=== PATIENT | male | born 1965 | race Caucasian/White ===

== ENCOUNTER 2022-05-26 22:15 | Emergency (ER) | payer OTHER, SELFPAY ==
[2022-05-26 23:01] VITALS: BP 162/105; PULSE 68; RESP 14; TEMP 36.8; O2SAT 96
[2022-05-27] MEDS: OxyCODONE/APAP 5-325 TABLET 3 TAB PO (00:20)
[2022-05-27] MEDS: BUPIVACAINE 0.25% 30 ML INJECTION (01:54)
--- NOTE | 2022-05-30 10:25 | ED_ITS ---
HPI - General Adult General Chief complaint: Unspecified Complaint, Adult Stated complaint: Hemorrhoids out of control Time Seen by Provider: 05/26/22 23:39 History of Present Illness HPI narrative: 56 yo man here with c/o anal bleeding. notes 2 maybe 3 days of hemorrhoids; never had prior. soaked underwear twice today with blood; admittedly would've changed more frequently if was able to. no fever. is having some abdominal cramping. feels bloated. no diarrhea. described formed soft stools. has tried treatment with prep-H and 1/2 tab residual vicodin twice. still with a good deal of pain. no lightheaded or short of breath. is anticipating a long [employer] race in a couple of weeks. Related Data Home Medications Medication Instructions Recorded Confirmed No Known Home Medications 05/26/22 05/30/22 Previous Rx's Medication Instructions Recorded lidocaine 4 % topical gel 1 applic topical BID-QID PRN pain 05/27/22 #30 grams Allergies Allergy/AdvReac Type Severity Reaction Status Date / Time No Known Drug Allergies Allergy Verified 05/30/22 14:06 Review of Systems Status of ROS: Reports: 6 or more systems reviewed and unremarkable except as noted in History and below PFSH PFSH Medical History Hx SBO Meckel diverticulum No significant past medical history Surgical History H/O knee surgery History of adrenal surgery History of renal stent S/P appendectomy S/P hernia repair Social History Narrative: 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 Smoking Status: Never smoker Do you use any of these nicotine containing products: None Second hand tobacco smoke exposure: No How often do you have a drink containing alcohol: 2-3 times a week How many standard drinks containing alcohol do you have on a typical day: 3 or 4 How often do you have six or more drinks on one occasion: Never AUDIT-C Alcohol total score: 4 Non-prescribed substance use: denies use Exam Narrative: Exam Narrative: Well nourished, well built. pleasant. nad though winces at times in transition. breathing easily. cardiovascular with regular heart rate. abdomen soft and nt. perineal/anal exam with large thrombosed hemorrhoids. 4 large piles; largest centrally. hard to tell initially though with further anesthetised exam all appear to be coming from the 12-6 o'clock area. All quite tender. largest 3+ cm in maximal dimension centrally. another more eroded and possible some source of bleeding is most central. no sig bleeding at this time. internal exam not possible d/t discomfort and amount of tissue complicating, though demonstrating remarkable pain tolerance. Const: Documenting provider has reviewed patient's vital signs: yes Course Course Hospital Course: discussed etiology and options for care including excising clot as I believe them to still be fresh enough to benefit and will hasten resolution and likely with smaller residual skin vs no intervention and treating symptoms. Mr. Fuentes gives informed consent to precede with excision of clot. Vital Signs Vital signs: Initial Vital Signs Temperature 98.2 F 05/26/22 23:01 Temperature Source Temporal Artery Scan 05/26/22 23:01 Pulse Rate 68 05/26/22 23:01 Pulse Rhythm 05/26/22 23:01 Respiratory Rate 14 05/26/22 23:01 Blood Pressure 162/105 H 05/26/22 23:01 Blood Pressure Mean 124 05/26/22 23:01 Pulse Oximetry 96 05/26/22 23:01 Oxygen Delivery Method 05/26/22 23:01 Vital Signs Temperature 98.2 F 05/26/22 23:01 Pulse Rate 68 05/26/22 23:01 Respiratory Rate 14 05/26/22 23:01 Blood Pressure 162/105 H 05/26/22 23:01 Pulse Oximetry 96 05/26/22 23:01 Oxygen Delivery Method 05/26/22 23:01 Temperature 98.2 F 05/26/22 23:01 Pulse Rate 68 05/26/22 23:01 Respiratory Rate 14 05/26/22 23:01 Blood Pressure 162/105 H 05/26/22 23:01 Pulse Oximetry 96 05/26/22 23:01 Oxygen Delivery Method 05/26/22 23:01 Medical Decision Making MDM Narrative Medical decision making narrative: given percocet initially then fan injection around anal tissue with bupivicaine. overall relatively excellent anethesia achieved and certainly aided by high pain tolerance. redosed during procedure and topical lidocaine placed prior to departure. excised with 15 blade and explored with curved mosquito. numerous clots removed and marked reduction extra-anal volume; 50% replaced (at least temporarily). 3 incisions necessary over largest hemorrhoid. minimal blood loss. oozing very lightly when gauze placed. no cautery or sutures necessary. Discharge Plan Discharge Clinical Impression: Thrombosed external hemorrhoids Patient Disposition: Home, Self-Care Condition: Stable Additional Instructions: Stay well-hydrated. Began supplementing with MiraLax or Benefiber or Citrucel --if talking MiraLax I'd probably start off with 3 cap fulls in the morning each diluted in 6-8 oz of liquid. Whatever you choose adjust to stool consistency being rather soft. Might probably need to use this for a couple of weeks. Might also soften stool with docusate sodium. Witch Kinsey containing pads or liquid placed on cotton balls to dab on affected area, can help with anesthesia. Might keep area moist with white petroleum jelly. Sitz baths 1-2 times daily over this next week- Warm water containing Epsom salt or could also soak in warm soapy water. Consider installing a bidet seat. Can take up to 800 mg of ibuprofen per dose. Alternative might be up to 500 mg naproxen 2 times daily. The either can be combined with acetaminophen up to 1000 mg per dose. Remember that each tablet of Percocet contains 325 mg of acetaminophen. With opiates can come constipation. On the days that you are taking an opiate, consider also taking senna-containing product once or twice a day. The lidocaine jelly prescribed has twice the % of what you received here in the ER. Consider making a tentative appointment with General surgery (or colorectal surgery) for around a week from now if you are having trouble. Otherwise see them on return from your trip. I think you would benefit from a longer-term plan regarding what I saw here today. Be seen otherwise for uncontrolled pain, bleeding such that you're soaking 1 medium weight menstrual pad equivalent an hour for 2 consecutive hours, fever. Prescriptions: New lidocaine 4 % gel 1 applic topical BID-QID PRN (Reason: pain) Qty: 30 1RF Rx Instructions: May substitute with 2% if 4 or 5% not available. No Action No Known Home Medications Follow Up/Referrals: Lawson Key MD [Primary Care Provider] - Stand Alone Forms: Of[employer] Info Instructions
== END 2022-05-27 04:05 | disposition home or self-care (01) ==
PROVIDERS: Emergency Provider Family Medicine; PCP Family Medicine
DX: K64.5 Perianal venous thrombosis (principal)
CPT/HCPCS: 46083; 99283; A9270; J3490

== ENCOUNTER 2023-03-29 10:17 | Outpatient (CLI) | payer OTHER, SELFPAY | END 2023-03-29 10:18 | disposition home or self-care (01) | PROVIDERS: PCP Family Medicine; Visit Provider Family Medicine | DX: Z00.00 Encounter for general adult medical examination without abnormal findings (principal); R53.83 Other fatigue; E55.9 Vitamin D deficiency, unspecified; I10 Essential (primary) hypertension; E78.00 Pure hypercholesterolemia, unspecified | CPT/HCPCS: 80053; 80061; 84153; 84270; 84402; 84403; 84443 ==

== ENCOUNTER 2023-09-02 12:05 | Emergency (ER) | payer OTHER, SELFPAY ==
[2023-09-02 12:14] VITALS: BP 148/97; PULSE 69; RESP 16; TEMP 36.1; O2SAT 97; BMI 26.5
[2023-09-02 13:21] LABS: RBC Urine 0-2 (0-2); Squamous Epithelial Cell Urine Few (None-Few); WBC Urine 0-2 (0-5)
--- NOTE | 2023-09-02 15:28 | CRLHL7_ITS ---
For Patients: As a result of the Century Cures Act, medical imaging exams and procedure reports are released immediately into your electronic medical record. You may view this report before your referring provider. If you have questions, please contact your health care provider. INDICATION: Bilateral flank pain with a history of stones COMPARISON: 03/01/2021 TECHNIQUE: CT of the abdomen and pelvis without intravenous contrast. Multiplanar axial, coronal, and sagittal reformats were reconstructed. Intravenous contrast: None. Oral contrast was not administered. FINDINGS: Lung bases: Mild bibasilar atelectasis Liver: Normal size and non-contrast attenuation. Gallbladder and biliary tree: Normal gallbladder. No biliary duct dilation. Pancreas: Normal. Spleen: Scattered granulomas. Normal size. Adrenal glands: Left adrenalectomy. Right adrenal gland appears normal. Kidneys and bladder: Normal size and position. No obvious cyst or mass. There are several nonobstructing intrarenal calculi. In the left kidney the largest is 9 mm in the lower pole. In the left kidney the largest is 7 mm and is in the upper pole. No urinary tract dilation. The urinary bladder is normal. GI: Few colonic diverticuli. No dilated segments. No abnormal bowel wall thickening. Small stool burden. The appendix is not discretely seen. Vessels: Normal caliber abdominal aorta with few calcified atherosclerotic plaques. Peritoneum: No free fluid. Lymph nodes: No adenopathy. Pelvis: No pelvic mass. Bones: No fractures. No focal bone lesions. Normal for age. IMPRESSION: Bilateral nonobstructing nephrolithiasis. Please note that all CT scans at this facility use dose modulation, iterative reconstruction, and/or weight-based dosing when appropriate to reduce radiation dose to as low as reasonably achievable. Dictated by Millicent Weber MD @ 09/02/2023 4:43:51 PM (Electronically Signed)
--- NOTE | 2023-09-02 15:31 | ED_ITS ---
HPI - General Adult General Chief complaint: Back Injury/Pain Stated complaint: Kidney pain Time Seen by Provider: 09/02/23 15:05 History of Present Illness HPI narrative: This 58-year-old male comes in reporting bilateral flank pain for the past almost couple weeks. He states that he had some gross hematuria when this pain initially presented. He does have a history of kidney stones. His pain was not severe so he has been waiting on this but comes in today stating that he no long er has hematuria but continues to have flank pain that ranges from 2 to 4 out of 10 in severity. He states that he is otherwise in good health. Related Data Previous Rx's Medication Instructions Recorded escitalopram oxalate 10 mg tablet 5 - 10 mg (0.5 - 1 x 10 mg) PO 03/29/23 (Lexapro) QDAY #90 tabs rosuvastatin 10 mg tablet 10 mg PO QDAY #90 tabs 03/29/23 ketorolac 10 mg tablet 10 mg PO Q8H 5 days #15 tabs 09/02/23 Allergies Allergy/AdvReac Type Severity Reaction Status Date / Time No Known Drug Allergies Allergy Verified 09/02/23 12:19 Review of Systems Status of ROS: Reports: 10 or more systems reviewed and unremarkable except as noted in History and below Narrative: Constitutional: No fevers, no weight gain or loss. Eyes: No discharge. No vision changes. HENT: No congestion, no sore throat, no ear pain. Cardiovascular: No chest pain, no palpitations. Respiratory: No shortness of breath, no wheezes, no cough. Gastrointestinal: No abdominal pain, no vomiting, no diarrhea. Bilateral flank pain. Genitourinary: No dysuria. Hematuria more than a week ago. Musculoskeletal: Normal range of motion. Skin: No rashes, no pruritis. Neurological: No dizziness, weakness, sensory change, speech change. Endo/Heme/Allergies: No bruising or bleeding. No polydipsia. Pysch: no suicidality, no anxiety, no insomnia. All other systems reviewed and are negative. [facility] Medical History (Updated 09/02/23 @ 17:22 by Bandar Mendiola MD) Hx SBO ?Z87.19 - Personal history of other diseases of the digestive system (ICD-10) Meckel diverticulum ?Q43.0 - Meckel's diverticulum (displaced) (hypertrophic) (ICD-10) No significant past medical history Surgical History (Updated 03/11/23 @ 08:39 by Jonah Lundy) History of colonoscopy ?Z98.890 - Other specified postprocedural states (ICD-10) H/O knee surgery ?Z98.890 - Other specified postprocedural states (ICD-10) History of renal stent S/P appendectomy ?Z90.49 - Acquired absence of other specified parts of digestive tract (ICD- 10) History of adrenal surgery ?Z98.890 - Other specified postprocedural states (ICD-10) S/P hernia repair ?Z98.890 - Other specified postprocedural states (ICD-10) ?Z87.19 - Personal history of other diseases of the digestive system (ICD-10) Family History (Updated 03/11/23 @ 08:40 by Jonah Lundy) Mother Cervical cancer Father Coronary artery disease High blood pressure Other Crohn's disease Leukemia Social History (Updated 03/11/23 @ 08:40 by oJnah Lundy) Narrative: 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 does not use illicit drugs nonsmoker social alcohol use Smoking Status: Never smoker Do you use any of these nicotine containing products: None Second hand tobacco smoke exposure: No How often do you have a drink containing alcohol: 2-3 times a week How many standard drinks containing alcohol do you have on a typical day: 3 or 4 How often do you have six or more drinks on one occasion: Never AUDIT-C Alcohol total score: 4 Non-prescribed substance use: denies use Little interest or pleasure in doing things: not at all Feeling down, depressed, or hopeless: not at all Exam Narrative: Exam Narrative: Constitutional: Well-developed, well-nourished, no acute distress. HEENT: Normocephalic, atraumatic. Neck: Normal range of motion. Nontender. Supple. Heart: Regular. No murmurs. Normal rate. Intact distal pulses. Lungs: Clear to auscultation. No chest discomfort. No wheezes, rhonchi, or rales. Abdomen: Normal bowel sounds. Nontender. No rebound tenderness. Tenderness when percussing over the flank region bilaterally. Genitalia: Deferred. Back: No midline tenderness. Normal range of motion. Extremities: Normal range of motion. No injury. Skin: Intact. No rash. Warm. No erythema or pallor. Neurologic: No altered sensation. No weakness. Alert and oriented. Psychiatric: No suicidality. No anxiety or depression. No insomnia. Nursing notes and vitals signs are reviewed. Const: Vital Signs, click to edit/add: Vital Signs - 24 hr 09/02/23 12:14 Temperature 96.9 F L Pulse Rate [Right Pulse Oximeter] 69 Respiratory Rate 16 Blood Pressure [Ri ght Upper Arm] 148/97 H Pulse Oximetry 97 Oxygen Delivery Me thod Room Air Course Vital Signs Vital signs: Initial Vital Signs Temperature 96.9 F L 09/02/23 12:14 Temperature Source Temporal Artery Scan 09/02/23 12:14 Pulse Rate 69 09/02/23 12:14 Respiratory Rate 16 09/02/23 12:14 Blood Pressure 148/97 H 09/02/23 12:14 Blood Pressure Mean 114 H 09/02/23 12:14 Blood Pressure Position Sitting 09/02/23 12:14 Pulse Oximetry 97 09/02/23 12:14 Oxygen Delivery Method Room Air 09/02/23 12:14 Vital Signs Temperature 96.9 F L 09/02/23 12:14 Pulse Rate 69 09/02/23 12:14 Respiratory Rate 16 09/02/23 12:14 Blood Pressure 148/97 H 09/02/23 12:14 Pulse Oximetry 97 09/02/23 12:14 Oxygen Delivery Method Room Air 09/02/23 12:14 Temperature 96.9 F L 09/02/23 12:14 Pulse Rate 69 09/02/23 12:14 Respiratory Rate 16 09/02/23 12:14 Blood Pressure 148/97 H 09/02/23 12:14 Pulse Oximetry 97 09/02/23 12:14 Oxygen Delivery Method Room Air 09/02/23 12:14 Medical Decision Making MDM Narrative Medical decision making narrative: This patient comes in reporting [id number] bilateral flank pain for the past couple weeks. He states that these symptoms began with some gross hematuria which has now resolved. He thought he might be passing a kidney stone as he has done so in the past. His pain has persisted mildly throughout this time but he has not had any recurrent hematuria. Urinalysis today shows no sign of hematuria or infection. CT imaging of the abdomen and pelvis shows some large stones in the kidneys that are nonobstructive. There are no other abnormalities. This patient has normal vital signs. He is okay to return home. A prescription for Toradol is provided. Lab Data Labs: Lab Results 09/02/23 Range/Units 12:20 Urine RBC 0-2 (0-2) Urine WBC 0-2 (0-5) Ur Squamous Epith Cells Few (None-Few) Urine Bacteria None (None) Imaging Data CT scan - abdomen: Radiologist's impression: Bilateral nonobstructing nephrolithiasis. Discharge Plan Discharge Clinical Impression: Flank pain Patient Disposition: Home, Self-Care Condition: Stable Additional Instructions: Take medication as needed and indicated. Follow up with MD or return if worsening. Prescriptions: New ketorolac 10 mg tablet 10 mg PO Q8H 5 Days Qty: 15 0RF No Action escitalopram oxalate [Lexapro] 10 mg tablet 5 - 10 mg PO QDAY Qty: 90 3RF rosuvastatin 10 mg tablet 10 mg PO QDAY Qty: 90 0RF Follow Up/Referrals: Lawson Key MD [Primary Care Provider] - Stand Alone Forms: [employer] Info Instructions
== END 2023-09-02 17:28 | disposition home or self-care (01) ==
PROVIDERS: Emergency Provider Emergency Medicine Emergency Medical Services; PCP Family Medicine
DX: R10.9 Unspecified abdominal pain (principal)
CPT/HCPCS: 74176; 81015; 99284

== ENCOUNTER 2023-09-09 17:31 | Outpatient (CLI) | payer OTHER, SELFPAY | END 2023-09-09 17:32 | disposition home or self-care (01) | LOC: NFLDREF 09-11 11:17 | PROVIDERS: PCP Family Medicine; Visit Provider Family Medicine | DX: E78.00 Pure hypercholesterolemia, unspecified (principal); Z79.899 Other long term (current) drug therapy; R31.9 Hematuria, unspecified; D61.818 Other pancytopenia; N20.0 Calculus of kidney; R05.9 Cough, unspecified | CPT/HCPCS: 84460 ==

== ENCOUNTER 2023-10-16 09:05 | Outpatient (CLI) | payer BC, SELFPAY | END 2023-10-16 09:06 | disposition home or self-care (01) | LOC: NFLDREF 10-21 06:16 | PROVIDERS: PCP Family Medicine; Referring Provider Family Medicine; Visit Provider Family Medicine | DX: E78.00 Pure hypercholesterolemia, unspecified (principal) | CPT/HCPCS: 80061 ==

== ENCOUNTER 2024-05-18 09:07 | Emergency (ER) | payer BC, SELFPAY ==
[2024-05-18] VITALS (14 sets, daily range): BP systolic 139–207; BP diastolic 42–114; PULSE 53–88; RESP 12–18; TEMP 35.9; O2SAT 93–98; BMI 27.3
--- NOTE | 2024-05-18 09:24 | CRLHL7_ITS ---
For Patients: As a result of the Century Cures Act, medical imaging exams and procedure reports are released immediately into your electronic medical record. You may view this report before your referring provider. If you have questions, please contact your health care provider. INDICATION: Clinical signs and symptoms of an acute stroke. Dizziness and diplopia COMPARISON: None TECHNIQUE: CT examination of the head was performed as axial sections without intravenous contrast. Images were obtained from the vertex of the skull through the skull base. Please note that all CT scans at this facility use dose modulation, iterative reconstruction, and/or weight-based dosing when appropriate to reduce radiation dose to as low as reasonably achievable. FINDINGS: The brain shows no sign of mass lesion, mass effect, hemorrhage, or edema. The ventricles and sulci are normal in appearance for the patient`s age. The visualized portions of the orbits are normal in appearance. The osseous structures are normal in their appearance with no sign of abnormality in the skull base or calvarium. I discussed the above findings with Dr. Keven Urbina at 9:45 a.m. on May 18, 2024 IMPRESSION: Normal unenhanced head CT. Please note that all CT scans at this facility use dose modulation, iterative reconstruction, and/or weight-based dosing when appropriate to reduce radiation dose to as low as reasonably achievable. Dictated by Rajesh East MD @ 05/18/2024 9:49:31 AM (Electronically Signed)
--- NOTE | 2024-05-18 09:24 | CRLHL7_ITS ---
For Patients: As a result of the Century Cures Act, medical imaging exams and procedure reports are released immediately into your electronic medical record. You may view this report before your referring provider. If you have questions, please contact your health care provider. INDICATION: Dizziness, diplopia. TECHNIQUE: CTA neck with contrast bolus tracking, 3D angiographic rendering using maximum intensity projection (MIP) and images permanently archived. FINDINGS: There is carotid atherosclerosis. There is no significant carotid artery stenosis or dissection. There is no significant vertebral artery stenosis or dissection. The soft tissues of the neck are within normal limits. The cervical spine is in normal alignment. Degenerative changes are noted in the cervical spine. IMPRESSION: No significant carotid or vertebral artery stenosis or dissection. Please note that all CT scans at this facility use dose modulation, iterative reconstruction, and/or weight-based dosing when appropriate to reduce radiation dose to as low as reasonably achievable. Dictated by Louis Correa MD @ 05/18/2024 9:57:02 AM (Electronically Signed)
--- NOTE | 2024-05-18 09:24 | CRLHL7_ITS ---
For Patients: As a result of the Century Cures Act, medical imaging exams and procedure reports are released immediately into your electronic medical record. You may view this report before your referring provider. If you have questions, please contact your health care provider. INDICATION: Dizziness, diplopia. TECHNIQUE: CTA head with contrast bolus tracking, 3D angiographic rendering using maximum intensity projection (MIP) and images permanently archived. FINDINGS: There is minor intracranial atherosclerotic disease with ectasia of the intracranial left vertebral artery. There is otherwise normal opacification of the intracranial vasculature. There is no large vessel occlusion or significant intracranial stenosis. No aneurysm is identified. IMPRESSION: No acute intracranial abnormality at CTA. Please note that all CT scans at this facility use dose modulation, iterative reconstruction, and/or weight-based dosing when appropriate to reduce radiation dose to as low as reasonably achievable. Dictated by Louis Correa MD @ 05/18/2024 9:53:44 AM (Electronically Signed)
--- NOTE | 2024-05-18 09:30 | ED_ITS ---
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 He presents to the ER today with his with concern for blurry vision, tingling in his left arm, unsteady gait. He was in his normal state of health when he got up to get ready for work this morning. He had already been up and around and was checking his emails when at about 645 he had fairly abrupt onset of blurry vision. He notes that addition seems to be worse in his left eye and better in his right eye. It also seems to be worse when he tries to look at things to left and better when he looks to the right. Along with that he felt some tingling numbness in his left based left arm and some unsteadiness with his gait. No headache. No definite weakness. No right-sided symptoms. He is not anticoagulated. No recent head injury. No history of seizures. He does take a medicine for cholesterol. He is not on any chemotherapy. His kidney tumor was not a malignancy. Related Data Previous Rx's ?Medication ?Instructions ?Recorded escitalopram oxalate 10 mg tablet 5 - 10 mg (0.5 - 1 x 10 mg) PO 04/13/24 (Lexapro) QDAY #90 tabs rosuvastatin 10 mg tablet 10 mg PO QDAY #90 tabs 04/15/24 Allergies Allergy/AdvReac Type Severity Reaction Status Date / Time No Known Drug Allergies Allergy Verified 05/18/24 11:29 [facility] Medical History (Updated 05/18/24 @ 09:52 by Keven Urbina MD) Calcium nephrolithiasis ?N20.0 - Calculus of kidney (ICD-10) Hx SBO ?Z87.19 - Personal history of other diseases of the digestive system (ICD-10) Meckel diverticulum ?Q43.0 - Meckel's diverticulum (displaced) (hypertrophic) (ICD-10) No significant past medical history Surgical History (Updated 03/11/23 @ 08:39 by Jonah Lundy) History of colonoscopy ?Z98.890 - Other specified postprocedural states (ICD-10) H/O knee surgery ?Z98.890 - Other specified postprocedural states (ICD-10) History of renal stent S/P appendectomy ?Z90.49 - Acquired absence of other specified parts of digestive tract (ICD- 10) History of adrenal surgery ?Z98.890 - Other specified postprocedural states (ICD-10) S/P hernia repair ?Z98.890 - Other specified postprocedural states (ICD-10) ?Z87.19 - Personal history of other diseases of the digestive system (ICD-10) Family History (Updated 03/11/23 @ 08:40 by Jonah Lundy) Mother Cervical cancer Father Coronary artery disease High blood pressure Other Crohn's disease Leukemia Social History (Updated 03/11/23 @ 08:40 by Jonah Lundy) Narrative: 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 does not use illicit drugs nonsmoker social alcohol use Smoking Status: Never smoker Do you use any of these nicotine containing products: None Second hand tobacco smoke exposure: No How often do you have a drink containing alcohol: 2-3 times a week How many standard drinks containing alcohol do you have on a typical day: 3 or 4 How often do you have six or more drinks on one occasion: Never AUDIT-C Alcohol total score: 4 Non-prescribed substance use: denies use Little interest or pleasure in doing things: not at all Feeling down, depressed, or hopeless: not at all Exam Narrative: Exam Narrative: Primary Survey: A- patent. Speaking clearly. Phonation normal. No stridor. B- breathing easily. Lung sounds clear and equal. Oxygen saturation normal on room air C- no active bleeding. Blood pressure stable. Symmetric pulses and cap refill in 4 extremities. D- alert and oriented x3. GCS 15. Constitutional: Appears well-developed and well-nourished. Alert. Conversant. Non toxic. HENT: Head: Atraumatic. Nose: Nose normal. Mouth/Throat: Oral mucosa is clear and moist. no trismus. Pharynx normal. Tonsils symmetric. No tonsillar enlargement, erythema, or exudate. Eyes: Conjunctivae normal. EOM normal. Pupils equal, round, and reactive to light. No scleral icterus. Neck: Normal range of motion. Neck supple. No tracheal deviation present. Cardiovascular: Normal rate, regular rhythm. No gallop. No friction rub. No murmur heard. Symmetric radial artery pulses Pulmonary/Chest: Effort normal. No stridor. No respiratory distress. No wheezes. No rales. No rhonchi . Abdominal: Soft. No distension. No mass. No tenderness. No rebound. No guarding. Musculoskeletal: RUE: Normal range of motion. No tenderness. No deformity LUE: Normal range of motion. No tenderness. No deformity RLE: Normal range of motion. No edema. No tenderness. No deformity LLE: Normal range of motion. No edema. No tenderness. No deformity Neurological: Mental status normal. Attention normal. Alert and oriented x3. GCS 15. Memory normal. Speech fluent. Cognition normal. Cranial Nerves: No facial droop. Facial sensation is symmetric bilaterally and V1, V2, V3. 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 When looking forward into the right, gaze is conjugate. However his right eye will not track past the midline when moving his eyes toward the left. He seems to have some nystagmus of his left eye with leftward gaze. EOMI. Palate elevates symmetrically and tongue protrudes in the midline. Strength: 5/5 trapezius on the right and left 5/5 deltoid on the right and left 5/5 biceps on the right and left 5/5 triceps on the right and left 5/5 software tools engineer on the right and left 5/5 thumb opposition on the right and le ft 5/5 finger abduction on the right and le ft 5/5 hip flexors (L3) on the right and le ft 5/5 quadriceps (L4) on the right and lef t 5/5 tibialis anterior on the right and l eft 5/5 EHL (L5) on the right and left 5/5 gastrocnemius (S1) on the right and left 5/5 hamstring on the right and left Although he complains of subjective paresthesias in his left arm, Sensation intact to light touch in both upper extremities (C4-T1) Sensation intact to light touch in Both lower extremities (L4-S1). Finger to nose and coordination normal. Heel-suresh is normal bilaterally. Nurses report he was very ataxic when transferring to the bed. Gait not assessed at this time due to the time urgency to get him to CT scan NIHSS 9:20 AM initiall assessment- 2 (gaze palsy). Skin: Skin is warm and dry. No rash noted. No pallor. Normal capillary refill. Psychiatric: Normal mood. Normal affect. Const: Vital Signs, click to edit/add: Vital Signs - 24 hr 05/18/24 09:10 05/18/24 09:15 05/18/24 09:36 Temperature 96.6 F L Pulse Rate 82 Pulse Rate [Pulse Oximeter] 88 Respiratory Rate 16 14 Blood Pressure 176/102 H Blood Pressure [Le ft Upper Arm] 207/114 H Pulse Oximetry 98 98 97 Oxygen Delivery Me thod Room Air 05/18/24 09:47 05/18/24 10:02 05/18/24 10:17 Temperature Pulse Rate 74 70 67 Pulse Rate [Pulse Oximeter] Respiratory Rate 16 14 14 Blood Pressure 153/96 H 169/104 H 139/42 L Blood Pressure [Le ft Upper Arm] Pulse Oximetry 98 96 97 Oxygen Delivery Me thod 05/18/24 10:31 05/18/24 10:47 05/18/24 11:01 Temperature Pulse Rate 75 59 L 60 Pulse Rate [Pulse Oximeter] Respiratory Rate 12 14 14 Blood Pressure 159/101 H 163/97 H Blood Pressure [Le ft Upper Arm] Pulse Oximetry 96 97 94 Oxygen Delivery Me thod 05/18/24 11:16 05/18/24 11:31 05/18/24 11:47 Temperature Pulse Rate 54 L 60 53 L Pulse Rate [Pulse Oximeter] Respiratory Rate 16 18 16 Blood Pressure 157/99 H 175/107 H 156/97 H Blood Pressure [Le ft Upper Arm] Pulse Oximetry 95 95 94 Oxygen Delivery Me thod 05/18/24 12:01 05/18/24 12:17 Temperature Pulse Rate 54 L 66 Pulse Rate [Pulse Oximeter] Respiratory Rate 16 18 Blood Pressure 150/98 H 160/112 H Blood Pressure [Le ft Upper Arm] Pulse Oximetry 93 94 Oxygen Delivery Me thod Course Course ED Course: Patient arrived and was triaged to ER room 8 and a stroke team activation was initiated. I evaluated the patient. He had symptoms concerning for stroke including an apparent intranuclear ophthalmoplegia associated with left-sided paresthesias and ataxia at home. Concern is for brainstem stroke. Blood sugar was normal. Blood pressure was markedly elevated at about 210/115. Initial an ache stroke scale score relatively low-2, because of his visual symptoms. However I think that NIH scale does not adequately affect his degree of disability since this is a posterior fossa stroke. This is a disabling stroke because it affects his vision and his gait. and we ordered stat noncontrast head CT and made a consult to Stroke Neurology. I also called pharmacy to notify them of a tPA candidate and elevated blood pressure. We discussed making preparations for thrombolytics dosing and p ossible antihypertensive space to get his blood pressure down to a safe range. We confirmed weight based dosing. I went to the CT department two-view images. Patient was just coming off the table. Unfortunately images were not initially available because there was a problem with the Internet and the radiology department. The CT techs are actively working on it. Discussed with Stroke Neurology, Dr. Rosalba Anderson-I was able to view images on the workstation of the CT scanner and I did not see any acute intracranial hemorrhages. CT techs were able to push images to [facility] and to [facility]. Received a phone call from [facility] Radiology. They report Head CT is negative for any bleed or other acute finding. This would fit with an acute ischemic stroke. Contemporaneously,, I had a phone call from Stroke Neurology. The stroke neurologist was also able to review the patient's images and they agree that no bleed is present. Stroke neurology recommends that the patient should be given thrombolytics. I agree that the patient is a candidate for thrombolytics. During this time, after the patient came back from CT scan his blood pressure had come down without treatment. and is now about 170/100 . This is in the safe range for thrombolytics. Discussed with the nurses and they will hold the previously ordered dose of labetalol. He does not needed at this time. Discussed with the patient and his at the bedside. We were preparing and waiting for the stroke neurologist, to do their tele consult. Discussed with the patient his that we are concerned that this is an acute ischemic stroke affecting his brainstem and causing symptoms including visual disturbance (nystagmus and her intranuclear ophthalmoplegia), and also affecting his gait. Based on the disabling nature of his symptoms we do think he would be a good candidate for IV thrombolytic. Were awaiting results of the CT angiogram. If there is a large vessel occlusion he may also be a candidate for intra-arterial intervention. Discussed with the patient and his that there is potential benefit of thrombolytic and it is recommended by the ana rosa and the neurologist. We also discussed the potential risk including up to a 4% chance of symptomatic intracranial hemorrhage and risk of other bleeding from thrombolytics. Overall we feel that the benefit of thrombolytics would outweigh the risk in this case. Verbal consent was obtained from the patient and from his . thrombolytic was administered at about 10:05 a.m.. We were still waiting for the tele stroke neurology consult but we felt that additional delay was not warranted. There already been delays associated with the Internet out age in the CT scanner. Stroke neurologist had already recommended tPA based on her phone conversation. Subsequently discussed again with Dr. Espinosa. He agrees with tPA. Discussed with the neuro ICU, Dr. Childers, who accepted for transfer to [facility] at 10:[address] [facility] transfer center indicates that they will be an immediate bed availability. However we should keep the patient here until we receive a phone call for nurse to nurse report. Patient says he has a mild headache, because his vision is affecting his head. It feels better if he closes his eyes. He declines Tylenol. Recheck-11. Still no phone call for nurse to nurse report. Awaiting bed assignment from [place]. I recheck the patient. Headache is improved. Numbness is been waxing and waning, currently better but not resolved. Recheck -1125. Patient remained stable. Headache gone. Still has intranuclear ophthalmoplegia and double vision. Still has some paresthesias in the left face and arm, still waxing and waning. We continue to wait for bed assignment at [facility]. Reevaluation(s) Reevaluation #1: Recheck-stable. Still has eye symptoms, mild paresthesias blood pressure stable and safe. Vital Signs Vital signs: Initial Vital Signs Temperature 96.6 F L 05/18/24 09:10 Temperature Source Temporal Artery Scan 05/18/24 09:10 Pulse Rate 88 05/18/24 09:10 Pulse Rhythm Regular 05/18/24 09:10 Respiratory Rate 16 05/18/24 09:10 Blood Pressure 207/114 H 05/18/24 09:10 Blood Pressure Mean 145 H 05/18/24 09:10 Blood Pressure Position Supine 05/18/24 09:10 Pulse Oximetry 98 05/18/24 09:10 Oxygen Delivery Method Room Air 05/18/24 09:10 Vital Signs Temperature 96.6 F L 05/18/24 09:10 Pulse Rate 88 05/18/24 09:10 Respiratory Rate 16 05/18/24 09:10 Blood Pressure 207/114 H 05/18/24 09:10 Pulse Oximetry 98 05/18/24 09:10 Oxygen Delivery Method Room Air 05/18/24 09:10 Temperature 96.6 F L 05/18/24 09:10 Pulse Rate 66 05/18/24 12:17 Respiratory Rate 18 05/18/24 12:17 Blood Pressure 160/112 H 05/18/24 12:17 Pulse Oximetry 94 05/18/24 12:17 Oxygen Delivery Method Room Air 05/18/24 09:10 Medications Administered Medications: Discontinued Medications Generic Name Dose Route Start Last Admin Trade Name Freq PRN Reason Stop Dose Admin Tenecteplase 22.5 mg 05/18/24 09:52 05/18/24 10:03 Tenecteplase 5 Mg/Ml Inj 0.25 mg/kg (22.5 mg) 05/18/24 09:53 22.5 mg IVP Administration ONCE ONE Medical Decision Making MDM Narrative Medical decision making narrative: Pleasant 58-year-old gentleman presenting to the ER today with acute neurologic symptoms suggestive for brainstem stroke. Differential is broad. No evidence for hypoglycemia, hyponatremia. No recent head injury. No evidence for seizure activity. Head CT is negative for intracranial hemorrhage. Scenario is highly suggestive for acute ischemic stroke affecting the brainstem. He is within the time window for IV thrombolysis. He does not have any anticoagulant, thrombocytopenia, bleed risk. No recent black or bloody stools or other unusual bleeding. No history of intracranial bleeding or masses. he did present with marked hypertension at his triage blood pressure but this came down without treatment. With blood pressure consistently below 185/110, he does not have a blood pressure contraindication to thrombolytics. In the absence of contraindications, with consultation with Stroke Neurology from [facility], we agree that he is a good candidate for thrombolytics. Discussed the risks and benefits of the medication with the patient and his , including the potential for long-term disabling symptoms from the stroke as well as the potential for symptomatic or life-threatening intracranial hemorrhage from the thrombolytic. Overall my recommendation was that the risk/benefit would favor intervention with thrombolytics. The patient and his both gave consent and the medication was administered. EKG shows sinus rhythm. Patient will require transfer to the neuro ICU at [facility]. Lab Data Labs: Lab Results 05/18/24 05/18/24 Range/Units 09:15 09:17 WBC 6.65 (4.50-11.00) K/uL RBC 5.88 (4.30-5.90) m/uL Hgb 17.2 (13.5-17.5) gm/dL Hct 52.4 (37.0-53.0) % MCV 89 (80-100) fL MCH 29 (26-34) pg MCHC 33 (32-36) gm/dL RDW Coeff of Diamond 12.7 (11.5-15.5) % Plt Count 249 (140-440) K/uL Neut % (Auto) 68.1 (42.0-72.0) % Lymph % (Auto) 19.8 L (20-44) % Hodgeman % (Auto) 8.7 (0.0-11.0) % Eos % (Auto) 2.3 (0.0-7.0) % Baso % (Auto) 0.6 (0.0-3.0) % Neut # (Auto) 4.53 (1.7-7.0) K/uL Lymph # (Auto) 1.30 (0.90-2.90) K/uL Hodgeman # (Auto) 0.60 (0.00-0.90) K/UL Eos # (Auto) 0.15 (0.00-0.50) K/uL Baso # (Auto) 0.04 (0.00-0.30) K/uL Abs Immat Gran (auto) 0.03 (0.00-0.30) K/uL Imm/Tot Granulo (auto) 0.5 % INR 0.88 L (0.91-1.10) APTT 30 (23-33) Seconds Sodium 137 (135-149) mmol/L Potassium 4.2 (3.6-5.1) mmol/L Chloride 103 (96-114) mmol/L Carbon Dioxide 24 (20-32) mmol/L Anion Gap 10 (7-15) mEq/L BUN 15 (7-30) mg/dL Creatinine 0.8 (0.5-1.5) mg/dL Estimated Creat Clear 106.46 Estimated GFR 104 ml/min Glucose 125 H (60-115) mg/dL Lactate 2.3 H (0.5-1.9) mmol/L Calcium 9.4 (8.4-10.6) mg/dL Troponin I < 0.01 L (0.01-0.04) ng/mL POC Creatinine 1.0 (0.6-1.3) mg/dl ECG Data Attestation: I personally reviewed and interpreted this ECG as follows: Interpretation: Normal sinus rhythm Rate: 89 OH: 148 QRS axis: Normal axis. No pathologic Q-waves. ST segment/T wave: No ST segment elevation or depression QTc: 459 Discharge Plan Discharge Clinical Impression: Stroke, Ataxia, Internuclear ophthalmoplegia Patient Disposition: [facility] Discharge Diet: 2000 ml Fluid Restriction Prescriptions: No Action escitalopram oxalate [Lexapro] 10 mg tablet 5 - 10 mg PO QDAY Qty: 90 0RF rosuvastatin 10 mg tablet 10 mg PO QDAY Qty: 90 0RF Stand Alone Forms: MyHealth Info Instructions
[2024-05-18 09:34] LABS: Lactate* 2.3 mmol/L (0.5-1.9)
[2024-05-18 09:36] LABS: Basophils Absolute Auto 0.04 K/uL (0.00-0.30); Basophils Percent Auto 0.6 % (0.0-3.0); Eosinophils Absolute Auto 0.15 K/uL (0.00-0.50); Eosinophils Percent Auto 2.3 % (0.0-7.0); Hematocrit 52.4 % (37.0-53.0); Hemoglobin* 17.2 gm/dL (13.5-17.5); Immature Granulocytes Abs Auto 0.03 K/uL (0.00-0.30); Immature Granulocytes Pct Auto 0.5 %; Lymphocytes Percent Auto 19.8 % (20-44); Mean Corpuscular HGB Conc 33 gm/dL (32-36); Mean Corpuscular Hemoglobin 29 pg (26-34); Mean Corpuscular Volume 89 fL (80-100); Monocytes Percent Auto 8.7 % (0.0-11.0); Neutrophils Absolute Auto 4.53 K/uL (1.7-7.0); Neutrophils Percent Auto 68.1 % (42.0-72.0); Platelet Count* 249 K/uL (140-440); RDW Coefficient of Variation % 12.7 % (11.5-15.5); Red Blood Count 5.88 m/uL (4.30-5.90); White Blood Count* 6.65 K/uL (4.50-11.00)
[2024-05-18 09:45] LABS: Slide Review Reflex No
[2024-05-18 09:50] LABS: Chloride* 103 mmol/L (96-114); INR 0.88 (0.91-1.10); Partial Thromboplastin Time* 30 Seconds (23-33); Prothrombin Time 12.4 Seconds; Sodium* 137 mmol/L (135-149)
[2024-05-18 09:51] LABS: Potassium* 4.2 mmol/L (3.6-5.1)
[2024-05-18 09:53] LABS: Creatinine* 0.8 mg/dL (0.5-1.5); Est. Creatinine Clearance* 106.46; Estimated Glomerular Filt Rate 104 ml/min
[2024-05-18 09:54] LABS: Anion Gap 10 mEq/L (7-15); Blood Urea Nitrogen* 15 mg/dL (7-30); Calcium* 9.4 mg/dL (8.4-10.6); Carbon Dioxide* 24 mmol/L (20-32); Glucose* 125 mg/dL (60-115)
[2024-05-18] MEDS: TENECTEPLASE 5 MG/ML inj 22.5 MG IVP (10:03)
[2024-05-18 10:09] LABS: Troponin I* < 0.01 ng/mL (0.01-0.04)
== END 2024-05-18 12:27 | disposition short-term general hospital (02) ==
LOC: ED 10:35
PROVIDERS: Emergency Provider Emergency Medicine; PCP Family Medicine
DX: I63.9 Cerebral infarction, unspecified (principal); R27.0 Ataxia, unspecified; H51.23 Internuclear ophthalmoplegia, bilateral
CPT/HCPCS: 36415; 70450; 70496; 70498; 80048; 82565; 82962; 83605; 84484; 85025; 85610; 85730; 93005; 94761; 96372; 99285; 99291; G0426; A0425; A0427; J3101; Q9967

== ENCOUNTER 2024-05-18 12:12 | Outpatient (CLI) | payer BC, SELFPAY | END 2024-05-18 12:13 | disposition home or self-care (01) | LOC: AMB 05-20 23:05 | PROVIDERS: PCP Family Medicine; Visit Provider Emergency Medicine | DX: I67.82 Cerebral ischemia (principal) | CPT/HCPCS: A0425; A0427 ==

== ENCOUNTER 2024-06-02 16:37 | Outpatient (CLI) | payer BC, SELFPAY ==
--- NOTE | 2024-06-02 16:45 | CRLHL7_ITS ---
For Patients: As a result of the Cures Act, medical imaging exams and procedure reports are released immediately into your electronic medical record. You may view this report before your referring provider. If you have questions, please contact your health care provider. CAROTID ULTRASOUND BILATERAL 06/02/2024 CLINICAL HISTORY: Cerebral infarction. TECHNIQUE: The carotid circulations and the vertebral arteries in the neck were examined with smith-scale ultrasound, color-flow and Doppler spectral analysis. Degrees of stenosis were determined using SRU 2002 Consensus Panel Criteria. FINDINGS: Mild plaque in both carotid bifurcations. Normal velocities. No evidence for hemodynamically significant carotid stenosis. Both vertebral arteries are patent with antegrade flow. Multiphasic flow in the subclavian arteries. RIGHT: Subclavian A: 113 Distal CCA: 61.1 Mid CCA: 76.2 Prox ICA: 63.3 Mid ICA: 107.0 Dist ICA: 86.0 ICA/CCA Ratio: 1.8 Vertebral artery: Antegrade LEFT: L Subclavian A: 61 Distal CCA: 77.4 Mid CCA: 76.2 Prox ICA: 75.0 Mid ICA: 76.2 Dist ICA: 92.0 ICA/CCA Ratio: 1.2 Vertebral artery: Antegrade IMPRESSION: No evidence for hemodynamically significant carotid stenosis. Aubrey Lemos M.D. Body/Diagnostic Radiologist [email or web address] Transcribed: 2:47 pm DW/Dictated by: Aubrey Lemos MD @ 06/03/2024 1:24:00 PM (Electronically Signed)
== END 2024-06-02 16:38 | disposition home or self-care (01) ==
LOC: US 16:37
PROVIDERS: PCP Family Medicine; Visit Provider Family Medicine
DX: I63.9 Cerebral infarction, unspecified (principal); E78.00 Pure hypercholesterolemia, unspecified; I10 Essential (primary) hypertension
CPT/HCPCS: 93880

== ENCOUNTER 2024-07-09 07:58 | Outpatient (CLI) | payer BC, SELFPAY | END 2024-07-09 07:59 | disposition home or self-care (01) | LOC: NFLDREF 07-10 09:41 | PROVIDERS: PCP Family Medicine; Referring Provider Family Medicine; Visit Provider Family Medicine | DX: Z00.00 Encounter for general adult medical examination without abnormal findings (principal); I63.9 Cerebral infarction, unspecified; I10 Essential (primary) hypertension; E78.00 Pure hypercholesterolemia, unspecified; E55.9 Vitamin D deficiency, unspecified; R53.83 Other fatigue | CPT/HCPCS: 80053; 80061; 82306; 83695; 86141; G0103 ==

== ENCOUNTER 2024-07-23 10:11 | Emergency (ER) | payer BC, SELFPAY ==
[2024-07-23 10:24] VITALS: BP 130/76; PULSE 57; RESP 18; TEMP 35.7; O2SAT 98; BMI 25.8
--- NOTE | 2024-07-23 10:31 | ED_ITS ---
HPI - General Adult General Time Seen by Provider: 10:31 Date Seen: 07/23/24 Chief complaint: Flank Pain Stated complaint: abdominal pain, c/o blocked kidney stone Time Seen by Provider: 07/23/24 10:18 Source: patient and RN notes reviewed Mode of arrival: ambulatory Limitations: no limitations History of Present Illness HPI narrative: This 58-year-old male is ambulatory into the ER for concern of kidney stones. He notes for few weeks he has actually had some bilateral flank pain. It started on the left, seemed to improve, noted more pain on the right. He sta rted Flomax about 2-3 days ago as he has a history kidney stones and does have this at home. He notes after starting the Flomax, he feels the left kidney stone dropped down further and started causing more pain. He feels like he is maybe not putting out as much urine as he might expect after starting Flomax. He has had no fevers or chills, no nausea or vomiting. He did use an oxycodone last night to be able to sleep. He declines any pain management at this time, was even offered Toradol but he declines. He notes the last time he had a CT scan which was maybe about 1.5 years ago, there were some large retained stones in the kidneys, he does not remember which side. He will be going out of town, thought he should maybe no what size stone or what was happening within the urinary system. He will be going to [place] for the weekend. Related Data Home Medications ?Medication ?Instructions ?Recorded ?Confirmed aspirin 81 mg tablet,delayed 81 mg PO QDAY 05/22/24 07/23/24 release (Adult Aspirin Regimen) tamsulosin 0.4 mg capsule 0.4 mg PO DAILY PRN 07/23/24 07/23/24 Previous Rx's ?Medication ?Instructions ?Recorded cholecalciferol (vitamin D3) 50 50 mcg PO QDAY #90 caps 05/22/24 mcg (2,000 unit) capsule escitalopram oxalate 10 mg tablet 10 mg PO QDAY #90 tabs 07/13/24 (Lexapro) rosuvastatin 20 mg tablet 20 mg PO QPM #90 tabs 07/13/24 Allergies Allergy/AdvReac Type Severity Reaction Status Date / Time No Known Drug Allergies Allergy Verified 07/13/24 09:45 Review of Systems Status of ROS: Reports: 6 or more systems reviewed and unremarkable except as noted in History and below PFSH PFSH Medical History Snoring ?R06.83 - Snoring (ICD-10) Mitral valve prolapse ?I34.1 - Nonrheumatic mitral (valve) prolapse (ICD-10) PFO (patent foramen ovale) ?Q21.12 - Patent foramen ovale (ICD-10) Calcium nephrolithiasis ?N20.0 - Calculus of kidney (ICD-10) Hx SBO ?Z87.19 - Personal history of other diseases of the digestive system (ICD-10) Meckel diverticulum ?Q43.0 - Meckel's diverticulum (displaced) (hypertrophic) (ICD-10) No significant past medical history Surgical History History of colonoscopy ?Z98.890 - Other specified postprocedural states (ICD-10) H/O knee surgery ?Z98.890 - Other specified postprocedural states (ICD-10) History of renal stent S/P appendectomy ?Z90.49 - Acquired absence of other specified parts of digestive tract (ICD- 10) History of adrenal surgery ?Z98.890 - Other specified postprocedural states (ICD-10) S/P hernia repair ?Z98.890 - Other specified postprocedural states (ICD-10) ?Z87.19 - Personal history of other diseases of the digestive system (ICD-10) Family History Mother Cervical cancer Father Coronary artery disease High blood pressure Other Crohn's disease Leukemia Social History Narrative: 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 does not use illicit drugs nonsmoker social alcohol use Smoking Status: Never smoker Do you use any of these nicotine containing products: None Second hand tobacco smoke exposure: No How often do you have a drink containing alcohol: 2-3 times a week How many standard drinks containing alcohol do you have on a typical day: 3 or 4 How often do you have six or more drinks on one occasion: Never AUDIT-C Alcohol total score: 4 Non-prescribed substance use: denies use Little interest or pleasure in doing things: more than half the days Feeling down, depressed, or hopeless: several days Exam Const: Vital Signs, click to edit/add: Vital Signs - 24 hr 07/23/24 10:24 Temperature 96.3 F L Pulse Rate [Pulse Oximeter] 57 L Respiratory Rate 18 Blood Pressure [Ri ght Upper Arm] 130/76 Pulse Oximetry 98 Oxygen Delivery Me thod Room Air This 58-year-old male is alert, interactive, no apparent distress. Very pleasant, ambulatory into the ED of his own accord. Sclera clear, face atraumatic, able speak in complete sentences. Lungs are clear, good air entry, no wheezing or crackles, no tachypnea. CV regular rate and rhythm, no murmur, normal S1-S2, no S3-S4. Abdomen is soft, nontender, nondistended, no organomegaly, no rebound or guarding. Mild left CVA tenderness, negative on the right. Documenting provider has reviewed patient's vital signs: yes Course Course ED Course: Will obtain urinalysis, basic labs with basic metabolic panel and CBC. Patient will have a noncontrast CT to look for stone pathology. Need to see if he might need any intervention if the stone is larger. At this time he declines pain management, he can let me know if he reconsiders. Reevaluation(s) Time of Reevaluation #1: 12:20 Reevaluation #1: Have provided patient a copy of his CT in did review this. We did discuss that there are patients who will sometimes get kidney pain with stones within the kidneys that are not obstructive. Would recommend follow-up with Urology if he has ongoing symptoms. There is no evidence of any obstructive pathology right now, labs are reassuring. Vital Signs Vital signs: Initial Vital Signs Temperature 96.3 F L 07/23/24 10:24 Temperature Source Temporal Artery Scan 07/23/24 10:24 Pulse Rate 57 L 07/23/24 10:24 Pulse Rhythm Regular 07/23/24 10:24 Respiratory Rate 18 07/23/24 10:24 Blood Pressure 130/76 07/23/24 10:24 Blood Pressure Mean 94 07/23/24 10:24 Blood Pressure Position Sitting 07/23/24 10:24 Pulse Oximetry 98 07/23/24 10:24 Oxygen Delivery Method Room Air 07/23/24 10:24 Vital Signs Temperature 96.3 F L 07/23/24 10:24 Pulse Rate 57 L 07/23/24 10:24 Respiratory Rate 18 07/23/24 10:24 Blood Pressure 130/76 07/23/24 10:24 Pulse Oximetry 98 07/23/24 10:24 Oxygen Delivery Method Room Air 07/23/24 10:24 Temperature 96.3 F L 07/23/24 10:24 Pulse Rate 57 L 07/23/24 10:24 Respiratory Rate 18 07/23/24 10:24 Blood Pressure 130/76 07/23/24 10:24 Pulse Oximetry 98 07/23/24 10:24 Oxygen Delivery Method Room Air 07/23/24 10:24 Medical Decision Making Lab Data Lab results reviewed: Yes I reviewed the patient's lab results Labs: Lab Results 07/23/24 Range/Units 10:45 WBC 4.97 (4.50-11.00) K/uL RBC 5.21 (4.30-5.90) m/uL Hgb 15.3 (13.5-17.5) gm/dL Hct 46.3 (37.0-53.0) % MCV 89 (80-100) fL MCH 29 (26-34) pg MCHC 33 (32-36) gm/dL RDW Coeff of [place] 12.8 (11.5-15.5) % Plt Count 229 (140-440) K/uL Neut % (Auto) 70.7 (42.0-72.0) % Lymph % (Auto) 17.9 L (20-44) % [place] % (Auto) 7.8 (0.0-11.0) % Eos % (Auto) 2.4 (0.0-7.0) % Baso % (Auto) 1.0 (0.0-3.0) % Neut # (Auto) 3.51 (1.7-7.0) K/uL Lymph # (Auto) 0.90 (0.90-2.90) K/uL [place] # (Auto) 0.40 (0.00-0.90) K/UL Eos # (Auto) 0.12 (0.00-0.50) K/uL Baso # (Auto) 0.05 (0.00-0.30) K/uL Abs Immat Gran (auto) 0.01 (0.00-0.30) K/uL Imm/Tot Granulo (auto) 0.2 % Sodium 134 L (135-149) mmol/L Potassium 4.1 (3.6-5.1) mmol/L Chloride 97 (96-114) mmol/L Carbon Dioxide 30 (20-32) mmol/L Anion Gap 7 (7-15) mEq/L BUN 14 (7-30) mg/dL Creatinine 0.8 (0.5-1.5) mg/dL Estimated Creat Clear 106.46 Estimated GFR 104 ml/min Glucose 110 (60-115) mg/dL Calcium 9.6 (8.4-10.6) mg/dL Urine Color Yellow (Yellow) Urine Appearance Clear (Clear) Urine pH 7.0 (5.0-8.5) Ur Specific [place] 1.010 (1.000-1.030) Urine Protein Negative (Negative) Urine Glucose (UA) Negative (Negative) Urine Ketones Negative (Negative) Urine Blood Negative (Negative) Urine Nitrite Negative (Negative) Urine Bilirubin Negative (Negative) Urine Urobilinogen 0.2 (0.2-1.0) Ur Leukocyte Esterase Negative (Negative) Urine RBC 0-2 (0-2) Urine WBC 0-2 (0-5) Ur Squamous Epith Cells None (None-Few) Urine Bacteria None (None) Imaging Data CT scan - abdomen: Attestation: I have reviewed the pertinent imaging results. My impression: Do see kidney stones within kidneys but do not appreciate obstructive pathology on my preliminary review. Await Radiology over-read. Radiologist's impression: Patient: DAVID JOHNSTON Facility:?[facility] Patient ID:?[id number] Site Patient ID:?[id number]. Site :?[id number] Study:?CT-Abdomen/Pelvis W/O-07/23/2024 11:36:43 AM Ordering Physician:Stephanie Rojo Final Report: Indication: Left flank pain, kidney stones Technique: Volumetric multidetector CT images of the abdomen and pelvis were without the administration of intravenous contrast. Comparison: CT abdomen and pelvis September 02, 2023 Findings: There is basilar atelectasis and parenchymal scar. The liver is normal in attenuation without intrahepatic biliary ductal dilatation. The gallbladder is unremarkable without evidence of radiopaque calculus. There is no significant common biliary ductal dilatation or abrupt cut off. Splenic granulomas are again seen. The stomach and duodenum are grossly unremarkable. The pancreas is normal in attenuation without significant atrophy. Prior left adrenalectomy. Stable right adrenal gland. Nonobstructive calculi are seen within the bilateral collecting systems without evidence of distal obstructive calculus or hydronephrosis. There is moderate stool seen throughout the colon with distal colonic diverticulosis without definite evidence of diverticulitis. Demonstration of a punctate radio metallic object within the rectal vault which may represent prior ingested foreign body. The appendix is unremarkable. There is no significant mesenteric, retroperitoneal, or pelvic sidewall lymph nodes. The aorta is nonaneurysmal. There is no significant atherosclerotic disease appreciated. The solid pelvic viscera are grossly unremarkable. There is no free fluid or free air. There is diastasis of the rectus musculature with a small fat containing umbilical hernia. The lumbar vertebral body heights are grossly maintained in satisfactory alignm ent without evidence of displaced fracture, lytic or blastic lesion. Impression: 1. Nephrolithiasis without evidence of definite obstructive calculus. 2. Moderate stool seen throughout the colon with minimal distal colonic diverticulosis. Incidental note is made of a punctate radio metallic object within the rectal vault. Correlate with history of ingested foreign body. Please note that all CT scans at this facility use dose modulation, iterative reconstruction, and/or weight-based dosing when appropriate to reduce radiation dose to as low as reasonably achievable. Dictated by Mohit Murray MD @ 07/23/2024 12:11:26 PM (Electronic Signature) Discharge Plan Discharge Clinical Impression: Bilateral nephrolithiasis, Left flank pain Patient Disposition: Home, Self-Care Condition: Stable Instructions: Kidney Stones (ED) Additional Instructions: It is important to stay hydrated, goal is to have clear looking urine. This can help prevent formation of kidney stones. Do recommend follow-up with Urology, can have your primary care provider schedule you with urology consultation. I do think you should see Urology is specially if you have ongoing flank pain with known stones within the kidneys. There is no evidence of any obstruction at this time. Activity Level: Activity as Tolerated Prescriptions: No Action escitalopram oxalate [Lexapro] 10 mg tablet 10 mg PO QDAY Qty: 90 3RF rosuvastatin 20 mg tablet 20 mg PO QPM Qty: 90 1RF aspirin [Adult Aspirin Regimen] 81 mg tablet,delayed release (DR/EC) 81 mg PO QDAY cholecalciferol (vitamin D3) 50 mcg (2,000 unit) capsule 50 mcg PO QDAY Qty: 90 3RF tamsulosin 0.4 mg capsule 0.4 mg PO DAILY PRN Follow Up/Referrals: Lawson Key MD [Primary Care Provider] - Stand Alone Forms: [facility] Info Instructions
[2024-07-23 10:58] LABS: Appearance Urine Clear (Clear); Bilirubin Urine Negative (Negative); Blood Urine Negative (Negative); Color Urine Yellow (Yellow); Glucose Urine Negative (Negative); Ketones Urine Negative (Negative); Leukocyte Esterase Urine Negative (Negative); Nitrite Urine Negative (Negative); Protein Urine Negative (Negative); Urobilinogen Urine 0.2 (0.2-1.0)
[2024-07-23 11:09] LABS: Chloride* 97 mmol/L (96-114)
[2024-07-23 11:10] LABS: Potassium* 4.1 mmol/L (3.6-5.1); Sodium* 134 mmol/L (135-149)
[2024-07-23 11:11] LABS: RBC Urine 0-2 (0-2); WBC Urine 0-2 (0-5)
[2024-07-23 11:12] LABS: Creatinine* 0.8 mg/dL (0.5-1.5); Est. Creatinine Clearance* 106.46; Estimated Glomerular Filt Rate 104 ml/min
[2024-07-23 11:13] LABS: Anion Gap 7 mEq/L (7-15); Blood Urea Nitrogen* 14 mg/dL (7-30); Calcium* 9.6 mg/dL (8.4-10.6); Carbon Dioxide* 30 mmol/L (20-32); Glucose* 110 mg/dL (60-115)
[2024-07-23 11:16] LABS: Basophils Absolute Auto 0.05 K/uL (0.00-0.30); Eosinophils Absolute Auto 0.12 K/uL (0.00-0.50); Eosinophils Percent Auto 2.4 % (0.0-7.0); Hematocrit 46.3 % (37.0-53.0); Hemoglobin* 15.3 gm/dL (13.5-17.5); Immature Granulocytes Abs Auto 0.01 K/uL (0.00-0.30); Immature Granulocytes Pct Auto 0.2 %; Lymphocytes Percent Auto 17.9 % (20-44); Mean Corpuscular HGB Conc 33 gm/dL (32-36); Mean Corpuscular Hemoglobin 29 pg (26-34); Mean Corpuscular Volume 89 fL (80-100); Monocytes Percent Auto 7.8 % (0.0-11.0); Neutrophils Absolute Auto 3.51 K/uL (1.7-7.0); Neutrophils Percent Auto 70.7 % (42.0-72.0); Platelet Count* 229 K/uL (140-440); RDW Coefficient of Variation % 12.8 % (11.5-15.5); Red Blood Count 5.21 m/uL (4.30-5.90); White Blood Count* 4.97 K/uL (4.50-11.00)
[2024-07-23 11:31] LABS: Slide Review Reflex No
[2024-07-23 12:00] VITALS: BP 129/87; PULSE 62; RESP 18; O2SAT 98
[2024-07-23 12:35] VITALS: BP 130/76; PULSE 57; RESP 18; TEMP 35.7
== END 2024-07-23 12:35 | disposition home or self-care (01) ==
PROVIDERS: Emergency Provider Family Medicine; PCP Family Medicine
DX: I47.10 Supraventricular tachycardia, unspecified (principal); E87.6 Hypokalemia
CPT/HCPCS: 36415; 74176; 80048; 81001; 85025; 99284

== ENCOUNTER 2024-09-22 12:37 | Outpatient (CLI) | payer BC, SELFPAY | END 2024-09-22 12:38 | disposition home or self-care (01) | LOC: NFLDREF 09-23 14:33 | PROVIDERS: PCP Family Medicine; Referring Provider Family Medicine; Visit Provider Family Medicine | DX: I10 Essential (primary) hypertension (principal); E78.00 Pure hypercholesterolemia, unspecified; I63.9 Cerebral infarction, unspecified; E55.9 Vitamin D deficiency, unspecified | CPT/HCPCS: 80053; 80061; 82306; 82670; 83695; 86141 ==

== ENCOUNTER 2024-12-22 09:38 | Outpatient (CLI) | payer BC, SELFPAY | END 2024-12-22 09:39 | disposition home or self-care (01) | LOC: NFLDREF 12-23 02:52 | PROVIDERS: PCP Family Medicine; Referring Provider Family Medicine; Visit Provider Family Medicine | DX: E78.00 Pure hypercholesterolemia, unspecified (principal); I10 Essential (primary) hypertension; E55.9 Vitamin D deficiency, unspecified | CPT/HCPCS: 80053; 80061; 82652; 83695; 86141 ==

== ENCOUNTER 2025-01-20 09:47 | Observation (INO) | payer BC, SELFPAY ==
[2025-01-20] VITALS (9 sets, daily range): BP systolic 131–186; BP diastolic 66–109; PULSE 55–66; RESP 16–18; TEMP 35.3–36.8; O2SAT 91–97; BMI 25.8; BMI 27.2
--- OUTSIDE RECORDS SUMMARY | 2025-01-20 09:49 | XMS_ITS | Clinical Summary ---
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 Active rosuvastatin (CRESTOR) 20 mg tabletIndicatio ns:Occlusion and stenosis of left vertebral artery Take 1 Tablet (20 mg) by mouth at bedtime. 30 Tablet 05/20/2024 2:47 PM CDT 05/20/2024 Active escitalopram oxalate (LEXAPRO) 20 mg tabletIndicatio ns:major depressive disorder Take one-half Tablets (10 mg) by mouth once daily. 15 Tablet 05/20/2024 2:47 PM CDT 05/20/2024 Active aspirin chewable 81 mg chewable tabletIndicatio ns:Occlusion and stenosis of left vertebral artery Chew 1 Tablet (81 mg) by mouth once daily with a meal. 05/21/2024 Active cholecalciferol (VITAMIN D3) 2,000 unit capsule Take 2,000 units by mouth once daily. 06/16/2024 Active Active Problems Problem Noted Date Diagnosed Date Acute stroke due to ischemia 05/20/2024 Hyperlipidemia 05/20/2024 Essential hypertension 03/14/2020 Atypical chest pain 03/14/2020 Nephrolithiasis 03/14/2020 Gastroesophageal reflux disease without esophagi tis 03/14/2020 Family History Medical History Relation Name Comments Heart attack Father Alive age 78 () Hypertension Sister Relation Name Status Comments Father Sister Social History Tobacco Use Types Packs/Day Years Used Date Smoking Tobacco: Never Smokeless Tobacco: Never Comments:Has an occasional c igar when golfing Alcohol Use Standard Drinks/Week Comments Yes 0 (1 standard drink = 0.6 oz pur e alcohol) Social Connections Answer Date Recorded Frequency of Communication with Friends and Fami ly Not on file 10/07/2021 Financial Resource Strain Answer Date R ecorded Difficulty of Paying Living Expenses Not on file 10/07/2021 Difficulty of Paying Living Expenses Not on file 10/07/2021 Sex and Gender Information Value Date Recorded Sex Assigned at Not on file Legal Sex Male 7:23 PM CDT Gender Identity Not on file Sexual Orientation Not on file Obstetrics History Last Filed Vital Signs Vital Sign Reading Time Taken Comments Blood Pressure 124/85 07/08/2024 7:48 AM CDT Pulse 67 07/08/2024 7:48 AM CDT Temperature 36.4 C (97.6 F) 05/20/2024 2:00 PM CDT Respiratory Rate 16 07/08/2024 7:48 AM CDT Oxygen Saturation 97% 07/08/2024 7:48 AM CDT Inhaled Oxygen Concentration - - Weight 84.1 kg (185 lb 6.4 oz) 07/08/2024 7:48 A M CDT Height 177.8 cm (5' 10) 07/08/2024 7:48 AM CDT Body Mass Index 26.6 07/08/2024 7:48 AM CDT Plan of Treatment Health Maintenance Due Date Last Done Comments Tdap 1978 Depression screening for age 12+ 1979 HIV for age 15-65 1982 Hepatitis C screening for age 18-79 1985 Pneumococcal series for age 50+ (1 of 2 - PCV) 1986 Tetanus booster 1987 Colonoscopy through age 75 2012 Zoster (shingles) series for age 50+ (1 of 2) 2017 COVID-19 vaccine series (3 - season) 2024 12/19/2020, 11/17/2020 Influenza Vaccine (Season Ended) 2025 BMI (ht and wt on same day) for age 18+ 07/08/2025 1 , 03/10/2020 Lipids for age 45-75 05/19/2029 05/19/2024 Procedures Procedure Name Priority Date/Time Associated Diagnosis Comments LIPID PANEL Early AM 05/19/2024 5:47 AM CDT from Last 3 Months or Most Recently Relevant to Health Maintenance Results * (ABNORMAL) Lipid Panel (05/19/2024 5:47 AM CDT) CHOLESTEROL,TOTAL 227(H) 100 - 199 mg/dL 05/19/2024 6:45 AM CDT [facility] Comment: Cholesterol, Total Reference Ranges Desirable <200 mg/dL Borderline 200-239 mg/dL High >=240 mg/dL TRIGLYCERIDES 190(H) <150 mg/dL 05/19/2024 6:45 AM CDT [facility] HDL CHOLESTEROL 42 >40 mg/dL 6:45 AM CDT [facility] NON-HDL CHOLESTEROL 185(H) <145 mg/dl 05/19/2024 6:45 AM CDT [facility] CHOL/HDL RATIO 5.40(H) <4.50 05/19/2024 6:45 AM CDT [facility] LDL CHOLESTEROL 147(H) <=130 mg/dL 05/19/2024 6:45 AM CDT [facility] VLDL CHOLESTEROL 38(H) <=30 mg/dL 05/19/2024 6:45 AM CDT [facility] PROVIDER ORDERED STATUS RANDOM 05/19/2024 6:45 AM CDT [facility] Blood BLOOD SPECIMEN / Unknown Venipuncture / Unknown 05/19/2024 5:47 AM CDT 05/19/2024 6:09 AM CDT us Zhanna Madrid MD CHEMISTRY F inal Result [facility] [address] [place] [address], from Last 3 Months or Most Recently Relevant to Health Maintenance Insurance [employer] Advance Directives * Full Code (Latest Code Status on File) Date Activated Date Inactivated Comments 05/18/2024 1:30 PM 05/20/2024 5:45 PM Question Answer Comments Code Status Discussion: Reviewed Preferences Care Teams Bag Machine Operator Helper Relationship Specialty Start Date End Date Lawson Key MD [address] [place] [address] PCP - General Family Practice 03/02/20
--- OUTSIDE RECORDS SUMMARY | 2025-01-20 09:49 | XMS_ITS | Clinical Summary ---
Author Organization [facility] Address [address] [place] [address] Care Team Providers Care Home Care Manager Rn Name Role Phone Elsewhere, Pcp Primary Care Provider Unavailabl e Source Comments Patient records contain information from all sites at [facility]. For routine questions regarding patient records, call [phone] during business hours, M-F 8:00 AM - 5:00 PM Central Time. Record requests for emergency care only can be directed to [phone] at any time.[facility] Allergies No known active allergies Medications * This document contains information received from the source organization and may not represent a complete record from that organization. escitalopram (LEXAPRO) 10 mg tablet TAKE 0.5 to 1 TABLET BY MOUTH DAILY* 01/14/2024 Active rosuvastatin (CRESTOR) 10 mg tablet Take 10 mg by mouth daily. Active Active Problems Problem Noted Date Diagnosed Date Hematuria 02/24/2024 Hypercholesterolemia 02/24/2024 Hepatitis 02/24/2024 Pericarditis 02/24/2024 Obstruction Intestinal 02/23/2024 Brachial Plexus Disorders 06/21/2021 Gastroesophageal Reflux Disease Without Esophagi tis 03/14/2020 Hypertension Essential Primary 03/14/2020 Stone Kidney 05/11/2013 Deficiency Vitamin D 05/15/2010 Social History Tobacco Use Types Packs/Day Years Used Date Smoking Tobacco: Never Tobacco Cessation:Counseling Given: Not Answered Alcohol Use Standard Drinks/Week Comments Not Currently 0 (1 standard drink = 0.6 oz pur e alcohol) [facility] Utilities Answer Date Recorded In the past 12 months has th e electric, gas, oil, or water [employer] threatened to shut off services in your home? No 02/24/2024 Humiliation, Afraid, Rape, and Kick questionnair e Answer Date Recorded Within the last year, have y ou been afraid of your partner or ex-partner? No 02/24/2024 Within the last year, have y ou been humiliated or emotionally abused in other ways by your partner or ex-partner? No Within the last year, have y ou been kicked, hit, slapped, or otherwise physically hurt by your partner or ex-partner? No 02/24/2024 Within the last year, have y ou been raped or forced to have any kind of sexual activity by your partner or ex-partner? No 02/24/2024 Social Connection and Isolat ion Panel [NHANES] Answer Date Recorded In a typical week, how many times do you talk on the phone with family, friends, or neighbors? Twice a week 06/14/2021 How often do you get togethe r with friends or relatives? Three times a week 06/14/2021 How often do you attend chur ch or gnosticist services? More than 4 times per year 06/14/2021 Do you belong to any clubs o r organizations such as mu-ism groups, unions, fraternal or athletic groups, or school groups? Yes 06/14/2021 How often do you attend meet ings of the clubs or organizations you belong to? More than 4 times per year 06/14/2021 Are you , , di vorced, , never , or living with a partner? 06/14/2021 AUDIT-C Answer Date Recorded Q1: How often do you have a drink containing alc ohol? 2-3 times a week 06/14/2021 Q2: How many drinks containi ng alcohol do you have on a typical day when you are drinking? 3 or 4 06/14/2021 Q3: How often do you have si x or more drinks on one occasion? Less than monthly 06/14/2021 Overall Financial Resource Strain (CARDIA) Answe r Date Recorded How hard is it for you to pa y for the very basics like food, housing, medical care, and heating? Not hard at all 06/14/2021 [place] [employer] [facility] - Occupational Stress Questionnaire Answer Date Recorded Do you feel stress - tense, restless, nervous, or anxious, or unable to sleep at night because your mind is troubled all the time - these days? To some extent 06/14/2021 Exercise Vital Sign Answer Date Recorde d On average, how many days pe r week do you engage in moderate to strenuous exercise (like a brisk walk)? 2 days 06/14/2021 On average, how many minutes do you engage in exercise at this level? 40 min 06/14/2021 Hunger Vital Sign Answer Date Recorded Within the past 12 months, y ou worried that your food would run out before you got the money to buy more. Never true 02/24/20 Within the past 12 months, t he food you bought just didn't last and you didn't have money to get more. Never true 02/24/2024 PRAPARE - Transportation Answer Date Re corded In the past 12 months, has l ack of transportation kept you from medical appointments or from getting medications? No 02/05 In the past 12 months, has l ack of transportation kept you from meetings, work, or from getting things needed for daily living? No 02/24/2024 Nutrition Answer Date Recorded On average, how many serving s of fruits and vegetables do you eat per day (serving size is equal to 1 cup or approximately the size of a tennis ball)? 0-1 06/14/2021 Dental Answer Date Recorded Dental: Regular Dentist Unknown 06/26/20 Employment Answer Date Recorded Employment status Employed and actively working without restrictions 06/14/2021 Housing Stability Answer Date Recorded What is your living situation today? I have a [facility] place to live 02/24/2024 Education Answer Date Recorded What is the highest level of school you have completed or the highest degree you have received? 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 [employer] Gender Identity Not on file Sexual Orientation Not on file Last Filed Vital Signs Vital Sign Reading Time Taken Comments Blood Pressure 153/101 02/25/2024 1:50 PM CDT Pulse 67 02/25/2024 1:50 PM CDT Temperature 36.2 C (97.2 F) 02/25/2024 1:50 PM CDT Respiratory Rate 16 02/25/2024 1:50 PM CDT Oxygen Saturation 94% 02/25/2024 1:50 PM CDT Inhaled Oxygen Concentration - - Weight 93.5 kg (206 lb 2.1 oz) 02/25/2024 1:15 A M CDT Height 177.8 cm (5' 10) 02/24/2024 9:00 PM CDT Body Mass Index 29.58 02/24/2024 9:00 PM CDT Plan of Treatment Health Maintenance Due Date Last Done Comments CT Colonography 1967 Cologuard 1967 Colonoscopy 1967 Colorectal Cancer Screening 1967 FIT 1967 HIV Screening 1967 Hepatitis C Screening 1967 Office Visit for Blood Pressure Check / Re-check 1967 Hepatitis B Vaccines (1 of 3 - 19+ 3-dose series) 1986 Pneumococcal vaccine (50+ years) (1 of 1 - PCV) 2017 Zoster Vaccines (1 of 2) 2017 COVID-19 Vaccine (3 - 2023- season) 2024 12/19/2020, 11/17/2020 Influenza Vaccine (#1) 2024 Depression Screening (Annual PHQ-2) 10/07/2024 Fasting Glucose for Diabetes Screening 05/19/2027 05/19/2024, 05/18/2024, 02/24/2024, Additional history exists Lipid (Cholesterol) Screening 05/19/2029 05/19/2024 DTaP,Tdap,and Td Vaccines (3 - Td or Tdap) 03/29/2033 03/29/2023, 05/22/2013 IPV Vaccines Aged Out No longer eligi ble based on patient's age to complete this topic Medical Devices Implanted Type Area Booster Pump Operator Device Identifier Shelf Expiration Date Model / Serial / Lot Stent Percuflex 6 X 26 - Faith [id number] Implanted:Qty: 1 on 02/17/2009 Ureteral Stent Abdomen [employer] Description:Device Manufactu rer - [employer]. Device Status Text - [id number]. Procedures Procedure Name Priority Date/Time Associated Diagnosis Comments BASIC METABOLIC PANEL, S/P Routine 02/24/2024 4:58 AM CDT from Last 3 Months or Most Recently Relevant to Health Maintenance Results * Basic Metabolic Panel (02/24/2024 4:58 AM CDT) Potassium, P 4.4 3.6 - 5.2 mmol/L 02/24/2024 5:34 AM CDT ECLR Sodium, P 140 135 - 145 mmol/L 02/24/2024 5:34 AM CDT ECLR Chloride, P 105 98 - 107 mmol/L 02/24/2024 5:34 AM CDT ECLR Bicarbonate, P 26 22 - 29 mmol/L 02/24/2024 5:34 AM CDT ECLR Anion Gap, P 9 7 - 15 02/24/2024 5:34 AM CDT ECLR BUN (Blood Urea Nitrogen), P 14 8 - 24 mg/dL 02/24/2024 5:34 AM CDT ECLR Creatinine 0.84 0.74 - 1.35 mg/dL 02/24/2024 5:34 AM CDT ECLR Estimated GFR (eGFR) >90 >=60 mL/min/BSA 02/24/2024 5:34 AM CDT ECLR Comment: Estimated GFR calculated using the 2020 CKD_EPI creatinine equation. Calcium, Total, P 8.6 8.6 - 10.0 mg/dL 02/24/2024 5:34 AM CDT ECLR Glucose, P 116 70 - 140 mg/dL 02/24/2024 5:34 AM CDT ECLR Blood (Blood, Venous) 02/24/2024 4:58 AM CDT 02/24/2024 5:07 AM CDT us Stoney Reynoso M.D. LAB BLOOD ADD-ON Final Result [facility] [address] [place] [id number], [facility] ECLR [facility] in [address] [address] from Last 3 Months or Most Recently Relevant to Health Maintenance Insurance [facility] Advance Directives For more information, please contact: [phone] Documents on File Type Date Recorded Patient Technical Services Rep Expl anation Advance Directives 02/27/2009 12:00 AM Leg acy document. See document viewer. Advance Directives 02/17/2009 12:00 AM Leg acy document. See document viewer. * Full Code (Latest Code Status on File) Date Activated Date Inactivated Comments 02/24/2024 12:31 AM 02/25/2024 5:33 PM Question Answer Comments Full Code: Discussed Care Teams Home Care Manager Rn Relationship Specialty Start Date End Date Elsewhere, Pcp PCP - General Internal Medicine 02/23/24
--- OUTSIDE RECORDS SUMMARY | 2025-01-20 09:49 | XMS_ITS | Clinical Summary ---
[facility] Address [address] [place] [address] Care Team Providers Care Marketing Outreach Coordinator Name Role Phone Lawson Key MD Primary Care Provider [phone] Source Comments You are receiving this document as you are listed as the primary care provider,follow-up provider, or the patient has been referred to you for consultation.This is in compliance with the Medicare and[facility] EHR Incentive Program,which states Providers who transition their patient to another setting of careor provider of care or refers their patient to another provider of care shouldprovide summary care record for each transition of care or referral. [facility] Allergies No known active allergies Medications tamsulosin (FLOMAX) 0.4 MG CAPS capsule Take 1 Capsule (0.4 mg) by mouth daily. As needed for kidney stones 30 Capsule 3 02/17/2024 Active Social History Tobacco Use Types Packs/Day Years Used Date Smoking Tobacco: Never Tobacco Cessation:Counseling Given: Not Answered Alcohol Use Standard Drinks/Week Comments Yes 0 (1 standard drink = 0.6 oz pur e alcohol) OCC Sex and Gender Information Value Date Recorded Sex Assigned at Not on file Legal Sex Male 12:18 PM CDT Gender Identity Not on file Sexual Orientation Not on file Plan of Treatment Health Maintenance Due Date Last Done Comments Colon Cancer Screening Plan Due 1967 Hep C Screening (Preventive Services) 1967 PSA Screening Discussion 1967 Tuberculosis Screening 1967 HIV Screening (Preventive Services) 1983 Adult Preventive Visit 1985 HepB Vaccine (1) 1986 Cholesterol 2002 Pneumococcal Vaccine 50+ Yrs (1 of 1 - PCV) 2017 Zoster/Shingles Vaccine (1 o f 2) 2017 COVID-19 Vaccine (3 - 2023-2 5 season) 2024 12/19/2020, 11/17/2020 Influenza Vaccine (#1) 2024 DTaP/Tdap/Td Vaccine (3 - Tdap) 03/29/2033 03/29/2023, 05/22/2013 HepA Vaccine Aged Out No longer eligi ble based on patient's age to complete this topic Hib Vaccine Aged Out No longer eligi ble based on patient's age to complete this topic IPV (Polio) Vaccine Aged Out No longe r eligible based on patient's age to complete this topic MCV4 Vaccine Aged Out No longer eligi ble based on patient's age to complete this topic Meningococcal B Vaccine Aged Out No l onger eligible based on patient's age to complete this topic Insurance [employer] Care Teams Marketing Outreach Coordinator Relationship Specialty Start Date End Date Lawson Key MD [address] [place] [address] PCP - General Family Practice 11/15/23
--- NOTE | 2025-01-20 10:04 | ED.ABDPAIN ---
HPI - Abdominal Pain General Time Seen by Provider: 10:04 Date Seen: 01/20/25 Chief Complaint: Abdominal Pain Stated Complaint: twisted bowel Time Seen by Provider: 01/20/25 10:04 Source: patient and RN notes reviewed Mode of arrival: ambulatory Limitations: no limitations History of Present Illness HPI narrative: This 59-year-old male is coming in with abdominal pain that he believes might be recurrent bowel obstruction. Has had a history of bowel obstructions thought to be adhesions, has not required any surgical intervention. His last time was february about a year ago. He has had no nausea or vomiting, did have a normal bowel movement this morning. He had pain probably awaken him at 5:00 a.m.. Pain is coming in waves, seems to be happening more frequently. He states the ?contractions? are coming more frequently. He had a normal bowel movement at 8:30 a.m. this morning. He last ate at about 9:00 p.m. last night. He has felt warm but no documented fevers. Denies any urinary symptoms, has had nephrolithiasis before. He has a history of Meckel diverticulum, history of renal stenting, history of colonoscopy, appendectomy, he has had an adrenal gland removal, hernia repair. Related Data Home Medications ?Medication ?Instructions ?Recorded ?Confirmed aspirin 81 mg tablet,delayed 81 mg PO QDAY 05/22/24 09/25/24 release (Adult Aspirin Regimen) Previous Rx's ?Medication ?Instructions ?Recorded escitalopram oxalate 10 mg tablet 10 mg PO QDAY #90 tabs 07/13/24 (Lexapro) cholecalciferol (vitamin D3) 125 125 mcg PO QDAY #90 caps 10/15/24 mcg (5,000 unit) capsule rosuvastatin 20 mg tablet 20 mg PO QPM #90 tabs 10/15/24 Allergies Allergy/AdvReac Type Severity Reaction Status Date / Time No Known Drug Allergies Allergy Verified 01/20/25 11:08 Review of Systems Status of ROS Reports: 6 or more systems reviewed and unremarkable except as noted in History and below [facility] Medical History Snoring ?R06.83 - Snoring (ICD-10) Mitral valve prolapse ?I34.1 - Nonrheumatic mitral (valve) prolapse (ICD-10) PFO (patent foramen ovale) ?Q21.12 - Patent foramen ovale (ICD-10) Calcium nephrolithiasis ?N20.0 - Calculus of kidney (ICD-10) Hx SBO ?Z87.19 - Personal history of other diseases of the digestive system (ICD-10) Meckel diverticulum ?Q43.0 - Meckel's diverticulum (displaced) (hypertrophic) (ICD-10) No significant past medical history Surgical History History of colonoscopy ?Z98.890 - Other specified postprocedural states (ICD-10) H/O knee surgery ?Z98.890 - Other specified postprocedural states (ICD-10) History of renal stent S/P appendectomy ?Z90.49 - Acquired absence of other specified parts of digestive tract (ICD-10) History of adrenal surgery ?Z98.890 - Other specified postprocedural states (ICD-10) S/P hernia repair ?Z98.890 - Other specified postprocedural states (ICD-10) ?Z87.19 - Personal history of other diseases of the digestive system (ICD-10) Family History Mother Cervical cancer Father Coronary artery disease High blood pressure Other Crohn's disease Leukemia Social History Narrative: 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 does not use illicit drugs nonsmoker social alcohol use Smoking Status: Never smoker Do you use any of these nicotine containing products: None Second hand tobacco smoke exposure: No How often do you have a drink containing alcohol: 2-3 times a week How many standard drinks containing alcohol do you have on a typical day: 3 or 4 How often do you have six or more drinks on one occasion: Never AUDIT-C Alcohol total score: 4 Non-prescribed substance use: denies use service: No Exam Const: Vital Signs, click to edit/add: Vital Signs - 24 hr 01/20/25 09:53 01/20/25 10:12 Temperature 95.6 F L Pulse Rate [Pulse Oximeter] 62 Respiratory Rate 16 Blood Pressure [Ri ght Upper Arm] 186/109 H Pulse Oximetry 96 97 Oxygen Delivery Me thod Room Air This 59-year-old male is alert, interactive, no apparent distress. Sclera clear, conjugate gaze. Symmetric facial function. Lungs are clear, good air entry, no wheezing crackles, CV regular rate and rhythm, no murmur. Has no tachypnea no accessory muscle use. Abdomen is soft, no significant tenderness, maybe mildly distended, do not hear much for bowel sounds at this time. He has no rebound or guarding, do not feel any masses or organomegaly. Patient was ambulatory into the ED of his own accord. Documenting provider has reviewed patient's vital signs: yes Course Course ED Course: Patient did try some tramadol this morning, really has not touched his pain. Morphine has not agreed with him in the past. We will try some IV Dilaudid with Zofran, some IV fluids. Proceed with CT imaging and appropriate labs. Certainly this could be recurrent bowel obstruction, possibly early gastroenteritis, does not sound like renal pathology or renal colic from stones but will look at urinalysis in this workup. Reevaluation(s) Time of Reevaluation #1: 11:28 Reevaluation #1: Reviewed with patient that his CT does look like there is a small bowel obstruction to me, need to await for Radiology over-read for full formal reading of this. His pain is returning. Will give him another dose of IV Dilaudid. Time of Reevaluation #2: 12:26 Reevaluation #2: Did update patient on his CT scan. He had a benign adrenal mass removed in an independent surgery. He had the Meckel's diverticulum excised and had appendectomy at that time. We have discussed bowel rest, would recommend NPO status at this time. Will order more IV fluids, he has been given some supplemental oxygen due to respiratory changes with the dilaudid, mild hypoxia corrected with oxygen. Consultations Consultation #1: Have given Dr. Davila our general surgeon on-call a heads up on this patient, she is in the OR doing surgery. I will talk to our hospitalist in the meantime. Do think he is going to need to come in for bowel rest in IV fluids. Likely pain management as well. Did subsequently talk to the hospitalist Dr. Carmichael who agrees to accept patient. Dr. Davila and I did review patient after her surgery, she will see him today. Time: 12:11 Vital Signs Vital signs: Initial Vital Signs Temperature 95.6 F L 01/20/25 09:53 Temperature Source Temporal Artery Scan 01/20/25 09:53 Pulse Rate 62 01/20/25 09:53 Pulse Rhythm Regular 01/20/25 09:53 Respiratory Rate 16 01/20/25 09:53 Blood Pressure 186/109 H 01/20/25 09:53 Blood Pressure Mean 134 H 01/20/25 09:53 Blood Pressure Position Supine 01/20/25 09:53 Pulse Oximetry 96 01/20/25 09:53 Oxygen Delivery Method Room Air 01/20/25 09:53 Vital Signs Temperature 95.6 F L 01/20/25 09:53 Pulse Rate 62 01/20/25 09:53 Respiratory Rate 16 01/20/25 09:53 Blood Pressure 186/109 H 01/20/25 09:53 Pulse Oximetry 96 01/20/25 09:53 Oxygen Delivery Method Room Air 01/20/25 09:53 Temperature 95.6 F L 01/20/25 09:53 Pulse Rate 62 01/20/25 09:53 Respiratory Rate 16 01/20/25 09:53 Blood Pressure 186/109 H 01/20/25 09:53 Pulse Oximetry 97 01/20/25 10:12 Oxygen Delivery Method Room Air 01/20/25 09:53 Medications Administered Medications: Discontinued Medications Generic Name Dose Route Start Last Admin Trade Name Freq PRN Reason Stop Dose Admin Hydromorphone HCl 0.5 mg 01/20/25 10:12 01/20/25 10:26 Hydromorphone 0.5 Mg/0.5 Ml Inj IVP 01/20/25 10:13 0.5 mg ONCE ONE Administration Hydromorphone HCl 0.5 mg 01/20/25 11:29 01/20/25 11:41 Hydromorphone 0.5 Mg/0.5 Ml Inj IVP 01/20/25 11:30 0.5 mg ONCE ONE Administration Sodium Chloride 1,000 mls @ 500 mls/hr 01/20/25 10:13 01/20/25 10:26 0.9 % Sodium Chloride 1000 Ml IV 01/20/25 12:12 500 mls/hr .Q2H CRISTY Administration Ondansetron HCl 4 mg 01/20/25 10:12 01/20/25 10:26 Ondansetron 2 Mg/Ml Inj IVP 01/20/25 10:13 4 mg ONCE ONE Administration MDM - Abdominal Pain Lab Data Attestation: I reviewed the patient's lab results. Labs: Lab Results 01/20/25 Range/Units 10:20 WBC 9.42 (4.50-11.00) K/uL RBC 5.67 (4.30-5.90) m/uL Hgb 16.5 (13.5-17.5) gm/dL Hct 49.0 (37.0-53.0) % MCV 86 (80-100) fL MCH 29 (26-34) pg MCHC 34 (32-36) gm/dL RDW Coeff of Diamond 12.8 (11.5-15.5) % Plt Count 232 (140-440) K/uL Neut % (Auto) 88.5 H (42.0-72.0) % Lymph % (Auto) 6.2 L (20-44) % [place] % (Auto) 3.9 (0.0-11.0) % Eos % (Auto) 0.8 (0.0-7.0) % Baso % (Auto) 0.4 (0.0-3.0) % Neut # (Auto) 8.30 H (1.7-7.0) K/uL Lymph # (Auto) 0.60 L (0.90-2.90) K/uL [place] # (Auto) 0.40 (0.00-0.90) K/UL Eos # (Auto) 0.08 (0.00-0.50) K/uL Baso # (Auto) 0.04 (0.00-0.30) K/uL Abs Immat Gran (auto) 0.02 (0.00-0.30) K/uL Imm/Tot Granulo (auto) 0.2 % Sodium 138 (135-149) mmol/L Potassium 4.9 (3.6-5.1) mmol/L Chloride 105 (96-114) mmol/L Carbon Dioxide 23 (20-32) mmol/L Anion Gap 10 (7-15) mEq/L BUN 15 (7-30) mg/dL Creatinine 0.8 (0.5-1.5) mg/dL Estimated Creat Clear 105.19 Estimated GFR 103 ml/min Glucose 110 (60-115) mg/dL Lactate 0.9 (0.5-1.9) mmol/L Calcium 9.7 (8.4-10.6) mg/dL Total Bilirubin 0.7 (0.1-1.5) mg/dL Direct Bilirubin 0.5 (0.0-0.5) mg/dL AST 38 H (12-35) U/L ALT 30 (4-50) U/L Alkaline Phosphatase 112 (40-150) U/L C-Reactive Protein 0.8 (0.5-1.0) mg/dL Total Protein 8.1 (6.0-8.3) g/dL Albumin 4.9 (3.3-5.0) g/dL Lipase 78 (23-300) U/L Imaging Data CT scan - abdomen: Attestation: I have reviewed the pertinent imaging results. My impression: Did see changes that I thought were consistent with small-bowel obstruction. Radiologist's impression: Patient: DAVID PRESTON Facility:?[facility] Patient ID:?[id number] Site Patient ID:?[id number]. Site :?[id number] Study:?CT-Abdomen/Pelvis WITH 89CC ISOVUE 370-01/20/2025 11:08:08 AM Ordering Physician:Stephanie Rojo Final Report: Indication: Abdominal pain. History of bowel obstruction. Technique: Routine enhanced abdomen and pelvis protocol with 89 mL Omnipaque 370 IV contrast. Comparison: CT abdomen pelvis July 23, 2024 Findings : Lung bases: No findings for active disease. Liver: Normal in caliber and attenuation. 2.2 centimeter subcapsular hypodensity junction caudate lobe band right lobe with a nodular peripheral fill in consistent with a hemangioma, not apparent on the nonenhanced comparison study. Gallbladder and bile ducts: Unremarkable. No dilation. Pancreas: Unremarkable. Spleen: Normal in caliber. Small calcified granulomas. Adrenal glands: Left adrenalectomy. Normal right gland. Kidneys: Multiple bilateral nonobstructing renal calculi. No ureteral dilation or calculi. GI tract: Multiple [id number] dilated loops of mid to distal small bowel to the ileum ileocecal junction with irregular wall thickening. Appendix: Not seen. Lymph nodes: No lymphadenopathy. Aorta and vessels: No aneurysm or severe stenosis. Omentum/peritoneum/retroperitoneum: No masses or infiltration. No free air. Mild fluid in the right lateral recess, subhepatic space and pelvis Pelvic organs: Unremarkable. Bones: No fractures or suspicious bone lesions. Soft Tissues: Stable rectus abdominis diastasis with small fat containing umbilical hernia. Impression: 1. Small-bowel obstruction at the level of the terminal ileum/ileocecal valve with irregular wall thickening. A small amount of adjacent free fluid is present extending into the right pericolic gutter, subhepatic space and pelvis. Thickening is likely due to inflammation although tumor can not be excluded. Appendix not visualized so clinical correlation is necessary. 2. Bilateral nephrolithiasis without evidence for urinary obstruction. Please note that all CT scans at this facility use dose modulation, iterative reconstruction, and/or weight-based dosing when appropriate to reduce radiation dose to as low as reasonably achievable. Dictated by Nomi Faulkner MD @ 01/20/2025 11:48:53 AM (Electronic Signature) Discharge Plan Discharge Clinical Impression: Small bowel obstruction Patient Disposition: Admitted As Observation
--- NOTE | 2025-01-20 10:12 | CRLHL7_ITS ---
For Patients: As a result of the Century Cures Act, medical imaging exams and procedure reports are released immediately into your electronic medical record. You may view this report before your referring provider. If you have questions, please contact your health care provider. Indication: Abdominal pain. History of bowel obstruction. Technique: Routine enhanced abdomen and pelvis protocol with 89 mL Omnipaque 370 IV contrast. Comparison: CT abdomen pelvis July 23, 2024 Findings : Lung bases: No findings for active disease. Liver: Normal in caliber and attenuation. 2.2 centimeter subcapsular hypodensity junction caudate lobe band right lobe with a nodular peripheral fill in consistent with a hemangioma, not apparent on the nonenhanced comparison study. Gallbladder and bile ducts: Unremarkable. No dilation. Pancreas: Unremarkable. Spleen: Normal in caliber. Small calcified granulomas. Adrenal glands: Left adrenalectomy. Normal right gland. Kidneys: Multiple bilateral nonobstructing renal calculi. No ureteral dilation or calculi. GI tract: Multiple lklx-to-duvwwsmhws dilated loops of mid to distal small bowel to the ileum ileocecal junction with irregular wall thickening. Appendix: Not seen. Lymph nodes: No lymphadenopathy. Aorta and vessels: No aneurysm or severe stenosis. Omentum/peritoneum/retroperitoneum: No masses or infiltration. No free air. Mild fluid in the right lateral recess, subhepatic space and pelvis Pelvic organs: Unremarkable. Bones: No fractures or suspicious bone lesions. Soft Tissues: Stable rectus abdominis diastasis with small fat containing umbilical hernia. Impression: 1. Small-bowel obstruction at the level of the terminal ileum/ileocecal valve with irregular wall thickening. A small amount of adjacent free fluid is present extending into the right pericolic gutter, subhepatic space and pelvis. Thickening is likely due to inflammation although tumor can not be excluded. Appendix not visualized so clinical correlation is necessary. 2. Bilateral nephrolithiasis without evidence for urinary obstruction. Please note that all CT scans at this facility use dose modulation, iterative reconstruction, and/or weight-based dosing when appropriate to reduce radiation dose to as low as reasonably achievable. Dictated by Nomi Faulkner MD @ 01/20/2025 11:48:53 AM (Electronically Signed)
[2025-01-20] MEDS: HYDROmorphone 0.5 mg/0.5 ml inj IVP ×4 (10:26→22:19)
[2025-01-20] MEDS: ONDANSETRON 2 MG/ML inj 4 MG IVP (10:26)
[2025-01-20] MEDS: 0.9 % SODIUM CHLORIDE 1000 ml 1,000 ML 500 ML IV ×2 (10:26→12:46)
[2025-01-20 10:35] LABS: Basophils Absolute Auto 0.04 K/uL (0.00-0.30); Basophils Percent Auto 0.4 % (0.0-3.0); Eosinophils Absolute Auto 0.08 K/uL (0.00-0.50); Eosinophils Percent Auto 0.8 % (0.0-7.0); Hemoglobin* 16.5 gm/dL (13.5-17.5); Immature Granulocytes Abs Auto 0.02 K/uL (0.00-0.30); Immature Granulocytes Pct Auto 0.2 %; Lymphocytes Percent Auto 6.2 % (20-44); Mean Corpuscular HGB Conc 34 gm/dL (32-36); Mean Corpuscular Hemoglobin 29 pg (26-34); Mean Corpuscular Volume 86 fL (80-100); Monocytes Percent Auto 3.9 % (0.0-11.0); Neutrophils Percent Auto 88.5 % (42.0-72.0); Platelet Count* 232 K/uL (140-440); RDW Coefficient of Variation % 12.8 % (11.5-15.5); Red Blood Count 5.67 m/uL (4.30-5.90); White Blood Count* 9.42 K/uL (4.50-11.00)
--- OUTSIDE RECORDS SUMMARY | 2025-01-20 10:41 | XMS_ITS | Clinical Summary ---
Author Organization [facility] Address [address] [place] [address] Care Team Providers Care Air Duct Mechanic Name Role Phone Elsewhere, Pcp Primary Care Provider Unavailabl e Source Comments Patient records contain information from all sites at [facility]. For routine questions regarding patient records, call [phone] during business hours, M-F 8:00 AM - 5:00 PM Central Time. Record requests for emergency care only can be directed to [phone] at any time.[facility] Allergies No known active allergies [...] drink = 0.6 oz pur e alcohol) [facility] Utilities Answer Date Recorded In the past 12 months has th e electric, gas, oil, or water [employer] threatened to shut off services in your [...] often do you attend chur ch or samaritan services? More than 4 times per year 06/14/2021 Do you belong to any clubs o r organizations such as christian groups, unions, fraternal or athletic groups, or [...] and heating? Not hard at all 06/14/2021 [employer] [place] [employer] ional [employer] - Occupational Stress [...] your living situation today? I have a [facility] place to live 02/24/2024 Education Answer Date Recorded What is the highest level of school you have completed or the highest degree you have received? 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 Device Status Text - [id number]. Procedures Procedure [...] Reynoso M.D. 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 See document viewer. Advance Directives 02/17/2009 12:00 AM Leg acy document. See document viewer. * Full Code (Latest Code Status on File) Date Activated Date Inactivated Comments 02/24/2024 12:31 AM 02/25/2024 5:33 PM Question Answer Comments Full Code: Discussed Care Teams Air Duct Mechanic Relationship Specialty Start Date End Date Elsewhere, Pcp PCP - General Internal Medicine 02/23/24
--- OUTSIDE RECORDS SUMMARY | 2025-01-20 10:41 | XMS_ITS | Clinical Summary ---
Author Organization [facility] Address [address] [place] [address] Care Team Providers Care Instructor Of Education Name Role Phone Lawson Key MD Primary Care Provider [phone] Source Comments You are receiving this document as you are listed as the primary care provider,follow-up provider, or the patient has been referred to you for consultation.This is in compliance with the Medicare and[facility] Cent[facility] EHR Incentive Program,which states Providers who transition their patient to another setting of careor provider of care or refers their patient to another provider of care shouldprovide summary care record for each transition of care or referral. [facility] Allergies No known active allergies Medications tamsulosin [...] this topic Insurance [employer] Care Teams Instructor Of Education Relationship Specialty Start Date End Date Lawson Key MD [address] [place] [address] PCP - General Family Practice 11/15/23
--- OUTSIDE RECORDS SUMMARY | 2025-01-20 10:41 | XMS_ITS | Clinical Summary ---
Author Organization [facility] Address [address] [place] [id number] Care Team Providers Care Frame Assembler Name Role Phone Lawson Key MD Primary Care Provider [phone] Allergies No known active allergies Medications tamsulosin [...] - 199 mg/dL 05/19/2024 6:45 AM CDT [facility] Comment: Cholesterol, Total Reference Ranges Desirable <200 mg/dL Borderline 200-239 mg/dL High >=240 mg/dL TRIGLYCERIDES 190(H) <150 mg/dL 05/19/2024 6:45 AM CDT [facility] HDL CHOLESTEROL 42 >40 mg/dL 6:45 AM CDT [facility] NON-HDL CHOLESTEROL 185(H) <145 mg/dl 05/19/2024 6:45 AM CDT [facility] CHOL/HDL RATIO 5.40(H) <4.50 05/19/2024 6:45 AM CDT [facility] LDL CHOLESTEROL 147(H) <=130 mg/dL 05/19/2024 6:45 AM CDT [facility] VLDL CHOLESTEROL 38(H) <=30 mg/dL 05/19/2024 6:45 AM CDT [facility] PROVIDER ORDERED STATUS RANDOM 05/19/2024 6:45 AM CDT [facility] Blood BLOOD SPECIMEN / Unknown Venipuncture / Unknown 05/19/2024 5:47 AM CDT 05/19/2024 6:09 AM CDT us Zhanna Madrid MD CHEMISTRY F inal Result [facility] [address] [place] [address], from Last 3 Months or Most Recently Relevant to Health Maintenance Insurance [employer] Advance Directives * Full Code (Latest Code Status on File) Date Activated Date Inactivated Comments 05/18/2024 1:30 PM 05/20/2024 5:45 PM Question Answer Comments Code Status Discussion: Reviewed Preferences Care Teams Frame Assembler Relationship Specialty Start Date End Date Lawson Key MD [address] [place] [address] PCP - General Family Practice 03/02/20
[2025-01-20 10:47] LABS: Albumin* 4.9 g/dL (3.3-5.0); Chloride* 105 mmol/L (96-114); Potassium* 4.9 mmol/L (3.6-5.1); Sodium* 138 mmol/L (135-149)
[2025-01-20 10:49] LABS: Slide Review Reflex No
[2025-01-20 10:50] LABS: Alanine Aminotransferase* 30 U/L (4-50); Alkaline Phosphatase* 112 U/L (40-150); Anion Gap 10 mEq/L (7-15); Aspartate Amino Transferase* 38 U/L (12-35); Bilirubin Direct* 0.5 mg/dL (0.0-0.5); Bilirubin Total* 0.7 mg/dL (0.1-1.5); Blood Urea Nitrogen* 15 mg/dL (7-30); Carbon Dioxide* 23 mmol/L (20-32); Creatinine* 0.8 mg/dL (0.5-1.5); Est. Creatinine Clearance* 105.19; Estimated Glomerular Filt Rate 103 ml/min; Lactate* 0.9 mmol/L (0.5-1.9); Total Protein* 8.1 g/dL (6.0-8.3)
[2025-01-20 10:51] LABS: Calcium* 9.7 mg/dL (8.4-10.6); Glucose* 110 mg/dL (60-115); Lipase* 78 U/L (23-300)
[2025-01-20 10:53] LABS: C Reactive Protein* 0.8 mg/dL (0.5-1.0)
--- NOTE | 2025-01-20 12:37 | P.IMHP_ITS ---
Assessment and Plan Assessment and plan (1) Small bowel obstruction: Problem comment: -previous abdominal surgeries: adrenalectomy, appy with meckel's diverticulectomy -previous admissions and ER visits. conservative approach (+/- NG and/or Gastrografin challenge) -Dr. Davila to evaluate later today, 01/20/25. He prefers to not have an NG tube. He would like support and he plans to walk the unit in hopes of a quick resolution. -I have written for IV acetaminophen, IV Toradol, IV Dilaudid for p.r.n. severe pain Status: Acute (2) Cerebrovascular accident (CVA) of pontine structure: Problem comment: May 2024 MR negative presumed pontine infarction. s/p IV Tenecteplase. Noted previous right cerebellum CVA. fusiform dilation noted in the vertebral artery is considered an atherosclerotic plaque May 2024 sx diplopia, numbness rec'd TNK at [facility] and then transferred to [facility] showed MVP with mod MR and PFO. cards rec'd 1 year f/u DAPT x 1 month, lifelong asp Status: Acute (3) Hypertension with goal blood pressure less than 130/80: Problem comment: no current pharm therapy -previously was on hydrochlorothiazide for kidney stones. He said when he is not in pain his blood pressure is totally normal. Status: Acute (4) ROMINA (generalized anxiety disorder): Problem comment: lexapro 10mg daily Status: Acute (5) Hypercholesterolemia: Problem comment: crestor 20mg hs Status: Acute Hospitalist- H&P: HPI History of Present Illness Date Seen: 01/20/25 Chief complaint: twisted bowel Narrative: ADMISSION HISTORY AND PHYSICAL - HOSPITALIST Chief Complaint: Abdominal bloating and pain HPI: 59-year-old white male with a history current small-bowel obstruction presents with abdominal distension and pain. His symptoms started last night and have not improved overnight. He states he had a small bowel movement this morning. But otherwise nothing has really changed and he has not been able to get comfortable. He denies fever, chills. His past medical history is relevant for a recent ischemic stroke in May of 2024 secondary to a PFO. He also has a history of kidney stones and benign adrenal mass. His 1st abdominal surgery was an anterior approach for an adrenalectomy. This was in 2008. In 2010 he had a Meckel's diverticulum and appendectomy. His 1st obstruction was around 20 13/20 14. He has had a couple of admissions necessitating NG and Gastrografin. However he has not needed surgery related to a small bowel obstruction. He has had several ER visits for either kidney stones or small-bowel obstructions. ER COURSE: CT abdomen pelvis, fluids, pain and nausea management CODE STATUS: FULL CODE PCP: Dr. Key, [facility] EMERGENCY CONTACT PLAN: Sanjuana Fuentes Rel To Pat Cell I've updated the PFSH, medications and allergies in the [facility] tabs. INVESTIGATIONS: LABS/MICRO/ECG/IMAGING Hypertensive at 186/109, in review he has labile hypertension with lows of 118/74 up to 186/112 Pulses in the 60s Respiratory rate 16 Pulse ox 96% on room air 81 kilos CBC is unremarkable CMP is unremarkable CT Abd/Pel 1. Small-bowel obstruction at the level of the terminal ileum/ileocecal valve with irregular wall thickening. A small amount of adjacent free fluid is present extending into the right pericolic gutter, subhepatic space and pelvis. Thickening is likely due to inflammation although tumor can not be excluded. Appendix not visualized so clinical correlation is necessary. 2. Bilateral nephrolithiasis without evidence for urinary obstruction. REVIEW OF SYSTEMS: 12-point ROS completed with patient and negative unless otherwise stated in HPI or below. PHYSICAL EXAM: CONSTITUTIONAL: Conversive, good historian. A/O. Knows setting and context. GENERAL: Well-developed and above ideal body weight, in no respiratory distress. VITAL SIGNS: see record. HEENT: Sclerae are anicteric. No petechiae. CARDIAC: rhythm is regular. There is no S3 or rub. No harsh murmurs. Extremities show trace edema with symmetrical pulses. PULM: good air entry with no wheeze. ABDOMEN: Quiescent bowel sounds. Mild tenderness globally. No specific rebound. Liver and spleen not enlarged. NEURO: Speech is fluent. A brief neurologic exam is negative. SKIN: No rashes, petechiae, concerning changes PSYCHIATRIC: Euthymic. ADMIT TO MEDSURG: FLOOR CARE DVT: SCDS GI: PO intake Time spent: Today I spent 75 minutes seeing the patient, discussing the patient with ER staff, reviewing [facility] and [facility] notes/diagnostics, discussing the care plan with our care time that includes social work, PT/OT, pharmacy, RT, detention and documenting my impressions and plan in the medical record. [facility] Medical History (Updated 01/20/25 @ 14:19 by Edel Carmichael MD) ROMINA (generalized anxiety disorder) ?F41.1 - Generalized anxiety disorder (ICD-10) Cerebrovascular accident (CVA) of pontine structure ?I63.50 - Cerebral infarction due to unspecified occlusion or stenosis of unspecified cerebral artery (ICD-10) BPH (benign prostatic hyperplasia) ?N40.0 - Benign prostatic hyperplasia without lower urinary tract symptoms (ICD-10) GERD (gastroesophageal reflux disease) ?K21.9 - Gastro-esophageal reflux disease without esophagitis (ICD-10) Excessive daytime sleepiness ?G47.19 - Other hypersomnia (ICD-10) Pericarditis ?I31.9 - Disease of pericardium, unspecified (ICD-10) Vitamin D deficiency (05/15/10) ?E55.9 - Vitamin D deficiency, unspecified (ICD-10) Snoring ?R06.83 - Snoring (ICD-10) Mitral valve prolapse ?I34.1 - Nonrheumatic mitral (valve) prolapse (ICD-10) PFO (patent foramen ovale) ?Q21.12 - Patent foramen ovale (ICD-10) Calcium nephrolithiasis ?N20.0 - Calculus of kidney (ICD-10) Hx SBO ?Z87.19 - Personal history of other diseases of the digestive system (ICD-10) Meckel diverticulum ?Q43.0 - Meckel's diverticulum (displaced) (hypertrophic) (ICD-10) Surgical History (Updated 01/20/25 @ 13:04 by Edel Carmichael MD) History of colonoscopy ?Z98.890 - Other specified postprocedural states (ICD-10) H/O knee surgery ?Z98.890 - Other specified postprocedural states (ICD-10) History of renal stent S/P appendectomy ?Z90.49 - Acquired absence of other specified parts of digestive tract (ICD- 10) History of adrenal surgery ?Z98.890 - Other specified postprocedural states (ICD-10) S/P hernia repair ?Z98.890 - Other specified postprocedural states (ICD-10) ?Z87.19 - Personal history of other diseases of the digestive system (ICD-10) Family History Mother Cervical cancer Father Coronary artery disease High blood pressure Other Crohn's disease Leukemia Social History Narrative: 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 does not use illicit drugs nonsmoker social alcohol use Smoking Status: Never smoker Do you use any of these nicotine containing products: None Second hand tobacco smoke exposure: No How often do you have a drink containing alcohol: 2-3 times a week How many standard drinks containing alcohol do you have on a typical day: 3 or 4 How often do you have six or more drinks on one occasion: Never AUDIT-C Alcohol total score: 4 Non-prescribed substance use: denies use service: No Meds Home Medications and Allergies Home Medications ?Medication ?Instructions ?Recorded ?Confirmed ?Type aspirin 81 mg tablet,delayed 81 mg PO DAILY 05/22/24 01/20/25 History release (Adult Aspirin Regimen) cholecalciferol (vitamin D3) 125 125 mcg PO DAILY 01/20/25 01/20/25 History mcg (5,000 unit) capsule escitalopram oxalate 10 mg tablet 10 mg PO DAILY 01/20/25 01/20/25 History (Lexapro) rosuvastatin 20 mg tablet 20 mg PO HS 01/20/25 01/20/25 History Allergies Allergy/AdvReac Type Severity Reaction Status Date / Time No Known Drug Allergies Allergy Verified 01/20/25 11:08 Exam Const: Vital Signs, click to edit/add: Vital Signs - 24 hr 01/20/25 09:53 01/20/25 10:12 Temperature 95.6 F L Pulse Rate [Pulse Oximeter] 62 Respiratory Rate 16 Blood Pressure [Ri ght Upper Arm] 186/109 H Pulse Oximetry 96 97 Oxygen Delivery Me thod Room Air Hospitalist - H&P: Result Labs Labs: Short CBC 01/20/25 Range/Units 10:20 WBC 9.42 (4.50-11.00) K/uL Hgb 16.5 (13.5-17.5) gm/dL Hct 49.0 (37.0-53.0) % Plt Count 232 (140-440) K/uL BMP 01/20/25 10:20 Sodium 138 Potassium 4.9 Chloride 105 Carbon Dioxide 23 BUN 15 Creatinine 0.8 Glucose 110 Calcium 9.7 Liver Function 01/20/25 Range/Units 10:20 Total Bilirubin 0.7 (0.1-1.5) mg/dL Direct Bilirubin 0.5 (0.0-0.5) mg/dL AST 38 H (12-35) U/L ALT 30 (4-50) U/L Alkaline Phosphatase 112 (40-150) U/L Albumin 4.9 (3.3-5.0) g/dL
--- NOTE | 2025-01-20 13:09 | PC.NURSE ---
Report given to Pat on M/S. Patient transported to [facility].
[2025-01-20] MEDS: ACETAMINOPHEN INJ 1,000 MG/100 ML VIAL 400 MG IVPB (14:16)
--- NOTE | 2025-01-20 15:00 | PM.GSCN ---
History of Present Illness Consult details Date Seen: 01/20/25 Consult date: 01/20/25 Narrative: Patient presented to the ED with abdominal pain and bloating. He has a history of small bowel obstructions in the past, 5-6 episodes over the last ten years per patient. His last episode was in February 2024. These were all managed conservatively. He reports feeling distended. Some diffuse tenderness with palpation. His last bowel movement was this morning. He passed some gas at that time. Does report some nausea but no emesis. No appetite. His surgical history is positive for an open adrenal mass excision, small bowel Meckel's diverticulum and appendectomy. He reports a strong family history of Crohn's disease. His daughter, dad, both sisters and a cousin have the diagnosis. He denies any chronic GI issues. His last colonoscopy was 1-2 years ago and normal per report. He does not know if they looked at the small bowel. Review of Systems Status of ROS: Reports: 10 or more systems reviewed and unremarkable except as noted in History and below [facility] Medical History (Updated 01/20/25 @ 14:19 by Edel Carmichael MD) ROMINA (generalized anxiety disorder) ?F41.1 - Generalized anxiety disorder (ICD-10) Cerebrovascular accident (CVA) of pontine structure ?I63.50 - Cerebral infarction due to unspecified occlusion or stenosis of unspecified cerebral artery (ICD-10) BPH (benign prostatic hyperplasia) ?N40.0 - Benign prostatic hyperplasia without lower urinary tract symptoms (ICD-10) GERD (gastroesophageal reflux disease) ?K21.9 - Gastro-esophageal reflux disease without esophagitis (ICD-10) Excessive daytime sleepiness ?G47.19 - Other hypersomnia (ICD-10) Pericarditis ?I31.9 - Disease of pericardium, unspecified (ICD-10) Vitamin D deficiency (05/15/10) ?E55.9 - Vitamin D deficiency, unspecified (ICD-10) Snoring ?R06.83 - Snoring (ICD-10) Mitral valve prolapse ?I34.1 - Nonrheumatic mitral (valve) prolapse (ICD-10) PFO (patent foramen ovale) ?Q21.12 - Patent foramen ovale (ICD-10) Calcium nephrolithiasis ?N20.0 - Calculus of kidney (ICD-10) Hx SBO ?Z87.19 - Personal history of other diseases of the digestive system (ICD-10) Meckel diverticulum ?Q43.0 - Meckel's diverticulum (displaced) (hypertrophic) (ICD-10) Surgical History (Updated 01/20/25 @ 13:04 by Edel Carmichael MD) History of colonoscopy ?Z98.890 - Other specified postprocedural states (ICD-10) H/O knee surgery ?Z98.890 - Other specified postprocedural states (ICD-10) History of renal stent S/P appendectomy ?Z90.49 - Acquired absence of other specified parts of digestive tract (ICD-10) History of adrenal surgery ?Z98.890 - Other specified postprocedural states (ICD-10) S/P hernia repair ?Z98.890 - Other specified postprocedural states (ICD-10) ?Z87.19 - Personal history of other diseases of the digestive system (ICD-10) Family History Mother Cervical cancer Father Coronary artery disease High blood pressure Other Crohn's disease Leukemia Social History Narrative: 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 does not use illicit drugs nonsmoker social alcohol use What is your current living situation?: I presently have a place to live Problems where you live: no known problems Problems where you live details: na In the past 12 months, utilities in danger of being shut off: no In past 12 months, lack of transportation kept you from medical appts, meetings, work, or getting things needed for daily living: no In the past 12 mos, have been you worried that your food would run out before you had money to buy more?: never true In the past 12 mos, the food you bought just didn't last and you didn't have money to buy more?: never true Highest level of school completed/degree received: 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 (, [employer], 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, 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) Smoking Status: Former smoker What tobacco products do you use: cigarettes Smoking quit date/years: >15 years ago Do you use any of these nicotine containing products: None Second hand tobacco smoke exposure: No How often do you have a drink containing alcohol: 2-3 times a week Alcohol type: beer and wine How many standard drinks containing alcohol do you have on a typical day: 1 or 2 How often do you have six or more drinks on one occasion: Weekly AUDIT-C Alcohol total score: 6 Non-prescribed substance use: denies use Caffeine: Yes (1 cup) How often does anyone, including family, friends and others, physically hurt you: never How often does anyone, including family, friends and others, insult or talk down to you: never How often does anyone, including family, friends and others, threaten you with harm: never How often does anyone, including family, friends and others, scream or curse at you: never service: No Meds Home Medications and Allergies Home Medications ?Medication ?Instructions ?Recorded ?Confirmed ?Type aspirin 81 mg tablet,delayed 81 mg PO DAILY 05/22/24 01/20/25 History release (Adult Aspirin Regimen) cholecalciferol (vitamin D3) 125 125 mcg PO DAILY 01/20/25 01/20/25 History mcg (5,000 unit) capsule escitalopram oxalate 10 mg tablet 10 mg PO DAILY 01/20/25 01/20/25 History (Lexapro) rosuvastatin 20 mg tablet 20 mg PO HS 01/20/25 01/20/25 History Allergies Allergy/AdvReac Type Severity Reaction Status Date / Time No Known Drug Allergies Allergy Verified 01/20/25 11:08 Exam Narrative: Exam Narrative: General: alert and oriented, NAD Resp: equal breath rise, maintained on RA CV: well perfused Abdomen: mild distension, soft, diffuse tenderness with palpation, no guarding or rebound. Large well healed upper chevron incision. Const: Vital Signs, click to edit/add: Vital Signs - 24 hr 01/20/25 09:53 01/20/25 10:12 01/20/25 13:00 Temperature 95.6 F L Pulse Rate 66 Pulse Rate [Pulse Oximeter] 62 Pulse Rate [Right Radial] Respiratory Rate 16 Blood Pressure [Ri ght Arm] Blood Pressure [Ri ght Upper Arm] 186/109 H Pulse Oximetry 96 97 95 Oxygen Delivery Me thod Room Air 01/20/25 13:28 01/20/25 13:32 01/20/25 13:36 Temperature 96.2 F L 96.2 F L Pulse Rate Pulse Rate [Pulse Oximeter] Pulse Rate [Right Radial] 61 61 Respiratory Rate 18 18 18 Blood Pressure [Ri ght Arm] 184/101 H 184/101 H Blood Pressure [Ri ght Upper Arm] Pulse Oximetry 96 96 96 Oxygen Delivery Me thod Room Air Room Air Room Air 01/20/25 14:16 Temperature 96.2 F L Pulse Rate Pulse Rate [Pulse Oximeter] Pulse Rate [Right Radial] Respiratory Rate Blood Pressure [Ri ght Arm] Blood Pressure [Ri ght Upper Arm] Pulse Oximetry Oxygen Delivery Me thod Results Labs Labs: Abnormal lab results 01/20/25 Range/Units 10:20 Neut % (Auto) 88.5 H (42.0-72.0) % Lymph % (Auto) 6.2 L (20-44) % Neut # (Auto) 8.30 H (1.7-7.0) K/uL Lymph # (Auto) 0.60 L (0.90-2.90) K/uL AST 38 H (12-35) U/L Diabetes panel 01/20/25 Range/Units 10:20 Sodium 138 (135-149) mmol/L Potassium 4.9 (3.6-5.1) mmol/L Chloride 105 (96-114) mmol/L Carbon Dioxide 23 (20-32) mmol/L BUN 15 (7-30) mg/dL Creatinine 0.8 (0.5-1.5) mg/dL Glucose 110 (60-115) mg/dL Calcium 9.7 (8.4-10.6) mg/dL AST 38 H (12-35) U/L ALT 30 (4-50) U/L Alkaline Phosphatase 112 (40-150) U/L Total Protein 8.1 (6.0-8.3) g/dL Albumin 4.9 (3.3-5.0) g/dL Calcium panel 01/20/25 Range/Units 10:20 Calcium 9.7 (8.4-10.6) mg/dL Albumin 4.9 (3.3-5.0) g/dL Pituitary panel 01/20/25 Range/Units 10:20 Sodium 138 (135-149) mmol/L Potassium 4.9 (3.6-5.1) mmol/L Chloride 105 (96-114) mmol/L Carbon Dioxide 23 (20-32) mmol/L BUN 15 (7-30) mg/dL Creatinine 0.8 (0.5-1.5) mg/dL Glucose 110 (60-115) mg/dL Calcium 9.7 (8.4-10.6) mg/dL Adrenal panel 01/20/25 Range/Units 10:20 Sodium 138 (135-149) mmol/L Potassium 4.9 (3.6-5.1) mmol/L Chloride 105 (96-114) mmol/L Carbon Dioxide 23 (20-32) mmol/L BUN 15 (7-30) mg/dL Creatinine 0.8 (0.5-1.5) mg/dL Glucose 110 (60-115) mg/dL Calcium 9.7 (8.4-10.6) mg/dL Total Bilirubin 0.7 (0.1-1.5) mg/dL AST 38 H (12-35) U/L ALT 30 (4-50) U/L Alkaline Phosphatase 112 (40-150) U/L Total Protein 8.1 (6.0-8.3) g/dL Albumin 4.9 (3.3-5.0) g/dL All other labs normal. Imaging Abdomen CT scan report/results: report reviewed and image reviewed Progress Note:A&P Assessment and plan (1) Small bowel obstruction: Status: Acute Assessment and Plan: Patient presents with clinical symptoms and work up suspicious for early small bowel obstruction. CT scan demonstrates transition in the RLQ with noted mucosal thickening of the terminal ileum. Patient could certainly have scar tissue in this area given his surgical history, he also has a strong family history of Crohn's disease- although he denies any chronic GI issues. Cannot rule out tumor, but less likely given his history of repeat obstructions over the last ten years. Would want to see the patient's last colonoscopy report and see if the terminal ileum was evaluated. Recommend conservative management at this time, but will continue to follow patient during this hospitalization. Plan - NPO, ok ice chips - ambulate - sparing use of IV and po pain medication - no need for NGT at this time, consider placement if patient develops worsening nausea or vomiting.
[2025-01-20] MEDS: 5 % DEXTROSE IN LAC RINGER'S 1,000 ML 125 ML IV ×2 (15:08→22:58)
[2025-01-20 16:57] LABS: Appearance Urine Clear (Clear); Bilirubin Urine Negative (Negative); Blood Urine Trace-intact (Negative); Color Urine Yellow (Yellow); Glucose Urine Negative (Negative); Ketones Urine 1+ (Negative); Leukocyte Esterase Urine Negative (Negative); Nitrite Urine Negative (Negative); Protein Urine Negative (Negative); Urobilinogen Urine 0.2 (0.2-1.0)
[2025-01-20 17:20] LABS: RBC Urine 0-2 (0-2); WBC Urine 0-2 (0-5)
--- NOTE | 2025-01-20 18:44 | PC.NURSE ---
end of shift. pt has been pleasant. he is alert x4. abd pain is 4-6 he is getting IV pain meds with relief, abd is soft but distended. he can have 1 cup of ice chips q4h. IV is patent. no nausea he gassed some gas. he is voiding
[2025-01-20] MEDS: BENZOCAINE/MENTHOL 1 EACH LOZENGE MUCOUS MEM (21:14)
[2025-01-20] MEDS: ENOXAPARIN 40 MG/0.4 ML INJ SUBCUT (21:14)
[2025-01-20] MEDS: SODIUM CHLORIDE 0.9 % (FLUSH) 10 ML SYRINGE 5 ML IVF (22:20)
[2025-01-21] VITALS (7 sets, daily range): BP systolic 116–171; BP diastolic 70–98; PULSE 55–68; RESP 14–18; TEMP 36.3–37.4; O2SAT 93–96
[2025-01-21 06:23] LABS: Hematocrit 44.4 % (37.0-53.0); Hemoglobin* 14.5 gm/dL (13.5-17.5); Mean Corpuscular HGB Conc 33 gm/dL (32-36); Mean Corpuscular Hemoglobin 29 pg (26-34); Mean Corpuscular Volume 89 fL (80-100); Platelet Count* 217 K/uL (140-440); Red Blood Count 4.97 m/uL (4.30-5.90); White Blood Count* 7.17 K/uL (4.50-11.00)
[2025-01-21 06:25] LABS: Slide Review Reflex No
--- NOTE | 2025-01-21 06:29 | PC.NURSE ---
Pleasant and cooperative with cares, VSS on RA, reported mild pain in abdomen throughout the shift, PRN medication given to help the patient sleep. NPO, although q4 hr c of ice chips ok per surgeon. No N/V this shift. Ambulating in the halls this AM after he took a shower. IV patent to Manisha GANN. Calls appropriately. Mireya BARKSDALE BSNA
[2025-01-21 06:30] LABS: Chloride* 106 mmol/L (96-114)
[2025-01-21 06:31] LABS: Potassium* 4.1 mmol/L (3.6-5.1); Sodium* 138 mmol/L (135-149)
[2025-01-21 06:33] LABS: Blood Urea Nitrogen* 12 mg/dL (7-30); Creatinine* 0.9 mg/dL (0.5-1.5); Estimated Glomerular Filt Rate 100 ml/min
[2025-01-21 06:34] LABS: Anion Gap 5 mEq/L (7-15); Calcium* 8.5 mg/dL (8.4-10.6); Carbon Dioxide* 27 mmol/L (20-32); Glucose* 92 mg/dL (60-115)
--- NOTE | 2025-01-21 08:59 | PM.GSPN ---
Subjective Subjective Date Seen: 01/21/25 Interval history: Patient feels like he is doing better this morning. He has been passing gas, no bowel movement. He feels like he could try some clear liquids this morning. Still feels slightly distended. Ambulating halls without difficulty. No concerns. Exam Narrative: Exam Narrative: General: Alert and oriented, no acute distress Abdomen: Soft, mild distention, nontender to palpation Const: Vital Signs, click to edit/add: Vital Signs - 24 hr 01/20/25 09:53 01/20/25 10:12 01/20/25 13:00 Temperature 95.6 F L Pulse Rate 66 Pulse Rate [Pulse Oximeter] 62 Pulse Rate [Right Radial] Respiratory Rate 16 Blood Pressure [Ri ght Arm] Blood Pressure [Ri ght Upper Arm] 186/109 H Pulse Oximetry 96 97 95 Oxygen Delivery Or thod Room Air 01/20/25 13:28 01/20/25 13:32 01/20/25 13:36 Temperature 96.2 F L 96.2 F L Pulse Rate Pulse Rate [Pulse Oximeter] Pulse Rate [Right Radial] 61 61 Respiratory Rate 18 18 18 Blood Pressure [Ri ght Arm] 184/101 H 184/101 H Blood Pressure [Ri ght Upper Arm] Pulse Oximetry 96 96 96 Oxygen Delivery Or thod Room Air Room Air Room Air 01/20/25 14:16 01/20/25 19:00 01/20/25 23:00 Temperature 96.2 F L 98.2 F 97.3 F L Pulse Rate Pulse Rate [Pulse Oximeter] Pulse Rate [Right Radial] 55 L 60 Respiratory Rate 16 16 Blood Pressure [Ri ght Arm] 131/83 135/66 Blood Pressure [Ri ght Upper Arm] Pulse Oximetry 93 91 Oxygen Delivery Or thod Room Air Room Air 01/21/25 03:00 Temperature 98.2 F Pulse Rate Pulse Rate [Pulse Oximeter] Pulse Rate [Right Radial] 68 Respiratory Rate 14 Blood Pressure [Ri ght Arm] 116/75 Blood Pressure [Ri ght Upper Arm] Pulse Oximetry 93 Oxygen Delivery Or thod Room Air Labs/Imaging Labs Labs: No leukocytosis Progress Note:A&P Assessment and plan (1) Small bowel obstruction: Status: Acute Assessment and Plan: Patient with a resolving small bowel obstruction. This is likely secondary to adhesions. Crohn's disease and tumor less likely, but remain in the differential. Would recommend that patient have a colonoscopy as an outpatient with evaluation of the terminal ileum and biopsies. Plan -clear liquids, okay to advance as tolerated Surgery to sign off. Please call with any acute clinical changes, questions or concerns.
--- NOTE | 2025-01-21 09:00 | PM.IMPN1 ---
Assessment and Plan Assessment and plan (1) Small bowel obstruction: Problem comment: -Dr. Davila will sign off and we can consult again if clinical path changes. will advance to clears. -previous abdominal surgeries: adrenalectomy, appy with meckel's diverticulectomy -previous admissions and ER visits. conservative approach (+/- NG and/or Gastrografin challenge) -I have written for IV acetaminophen, IV Toradol, IV Dilaudid for p.r.n. severe pain Status: Acute (2) Cerebrovascular accident (CVA) of pontine structure: Problem comment: May 2024 MR negative presumed pontine infarction. s/p IV Tenecteplase. Noted previous right cerebellum CVA. fusiform dilation noted in the vertebral artery is considered an atherosclerotic plaque May 2024 sx diplopia, numbness rec'd TNK at [facility] and then transferred to [facility] showed MVP with mod MR and PFO. cards rec'd 1 year f/u DAPT x 1 month, lifelong asp Status: Acute (3) Hypertension with goal blood pressure less than 130/80: Problem comment: no current pharm therapy -previously was on hydrochlorothiazide for kidney stones. He said when he is not in pain his blood pressure is totally normal. Status: Acute (4) ROMINA (generalized anxiety disorder): Problem comment: lexapro 10mg daily Status: Acute (5) Hypercholesterolemia: Problem comment: crestor 20mg hs Status: Acute Subjective Date Seen: 01/21/25 Interval history: Daily Progress Note - Hospital #: 2 CC: SBO 24 HOUR UPDATE: passing gas. hungry. feels a bit better than yesterday. no fever. Notable Labs, Micro, Rads, Interventions: 116/75 Pulse 68 Afebrile On room air CBC unremarkable this morning BMP unremarkable Objective: walking the halls; looks comfortable. Vitals: see above Lungs: Clear. Cardiac: S1S2. Abdomen: soft. mildly tenderness. Disposition/Potential discharge - home Today I spent 50minutes seeing the patient, reviewing Expanse and EPIC notes/diagnostics, discussing the care plan with our care time that includes social work, PT/OT, pharmacy, RT, care home and documenting my impressions and plan in the medical record. Exam Const: Vital Signs, click to edit/add: Vital Signs - 24 hr 01/20/25 09:53 01/20/25 10:12 01/20/25 13:00 Temperature 95.6 F L Pulse Rate 66 Pulse Rate [Pulse Oximeter] 62 Pulse Rate [Right Radial] Respiratory Rate 16 Blood Pressure [Ri ght Arm] Blood Pressure [Ri ght Upper Arm] 186/109 H Pulse Oximetry 96 97 95 Oxygen Delivery Ms thod Room Air 01/20/25 13:28 01/20/25 13:32 01/20/25 13:36 Temperature 96.2 F L 96.2 F L Pulse Rate Pulse Rate [Pulse Oximeter] Pulse Rate [Right Radial] 61 61 Respiratory Rate 18 18 18 Blood Pressure [Ri ght Arm] 184/101 H 184/101 H Blood Pressure [Ri ght Upper Arm] Pulse Oximetry 96 96 96 Oxygen Delivery Me thod Room Air Room Air Room Air 01/20/25 14:16 01/20/25 19:00 01/20/25 23:00 Temperature 96.2 F L 98.2 F 97.3 F L Pulse Rate Pulse Rate [Pulse Oximeter] Pulse Rate [Right Radial] 55 L 60 Respiratory Rate 16 16 Blood Pressure [Ri ght Arm] 131/83 135/66 Blood Pressure [Ri ght Upper Arm] Pulse Oximetry 93 91 Oxygen Delivery Ms thod Room Air Room Air 01/21/25 03:00 Temperature 98.2 F Pulse Rate Pulse Rate [Pulse Oximeter] Pulse Rate [Right Radial] 68 Respiratory Rate 14 Blood Pressure [Ri ght Arm] 116/75 Blood Pressure [Ri ght Upper Arm] Pulse Oximetry 93 Oxygen Delivery Ms thod Room Air Labs Labs: Laboratory Results - last 24 hr 01/20/25 01/20/25 01/21/25 10:20 16:45 06:10 WBC 9.42 7.17 RBC 5.67 4.97 Hgb 16.5 14.5 Hct 49.0 44.4 MCV 86 89 MCH 29 29 MCHC 34 33 RDW Coeff of Diamond 12.8 Plt Count 232 217 Neut % (Auto) 88.5 H Lymph % (Auto) 6.2 L Sully % (Auto) 3.9 Eos % (Auto) 0.8 Baso % (Auto) 0.4 Neut # (Auto) 8.30 H Lymph # (Auto) 0.60 L Sully # (Auto) 0.40 Eos # (Auto) 0.08 Baso # (Auto) 0.04 Abs Immat Gran (auto) 0.02 Imm/Tot Granulo (auto) 0.2 Sodium 138 138 Potassium 4.9 4.1 Chloride 105 106 Carbon Dioxide 23 27 Anion Gap 10 5 L BUN 15 12 Creatinine 0.8 0.9 Estimated Creat Clear 105.19 93.50 Estimated GFR 103 100 Glucose 110 92 Lactate 0.9 Calcium 9.7 8.5 Total Bilirubin 0.7 Direct Bilirubin 0.5 AST 38 H ALT 30 Alkaline Phosphatase 112 C-Reactive Protein 0.8 Total Protein 8.1 Albumin 4.9 Lipase 78 Urine Color Yellow Urine Appearance Clear Urine pH 6.0 Ur Specific Spruce 1.020 Urine Protein Negative Urine Glucose (UA) Negative Urine Ketones 1+ A Urine Blood Trace-intact A Urine Nitrite Negative Urine Bilirubin Negative Urine Urobilinogen 0.2 Ur Leukocyte Esterase Negative Urine RBC 0-2 Urine WBC 0-2 Ur Squamous Epith Cells None Urine Bacteria None
[2025-01-21] MEDS: KETOROLAC 30 MG/ML inj IVP ×2 (10:20→18:14)
[2025-01-21] MEDS: SODIUM CHLORIDE 0.9 % (FLUSH) 10 ML SYRINGE 5 ML IVF ×2 (10:28→20:19)
--- NOTE | 2025-01-21 19:17 | PC.NURSE ---
Nursing Care Hours: [id number] Pt this shift calm and cooperative, alert and oriented. Independent, walking the halls frequently. Advanced diet to clears, tolerated moderately. Did report some increase pain after starting fluids. Pain treated with IV Toradol, effective. SL, VSS. BS active, reports passing gas.
[2025-01-21] MEDS: ENOXAPARIN 40 MG/0.4 ML INJ SUBCUT (20:19)
[2025-01-22] MEDS: KETOROLAC 30 MG/ML inj IVP ×2 (00:11→13:37)
[2025-01-22 03:00] VITALS: RESP 18
[2025-01-22 06:23] LABS: Hemoglobin* 13.6 gm/dL (13.5-17.5); Mean Corpuscular HGB Conc 33 gm/dL (32-36); Mean Corpuscular Hemoglobin 29 pg (26-34); Mean Corpuscular Volume 88 fL (80-100); Platelet Count* 165 K/uL (140-440); Red Blood Count 4.66 m/uL (4.30-5.90); White Blood Count* 4.28 K/uL (4.50-11.00)
[2025-01-22 06:24] LABS: Slide Review Reflex No
--- NOTE | 2025-01-22 06:31 | PC.NURSE ---
[id number]: Pt pleasant, alert and oriented. VSS. Bowel sounds active in all 4 quadrants. Pt states flatus. Pt rates pain rated 4/10, prn Toradol given, pt stated improvement. Clear liquid diet. Pt in bed, appears to be resting, call light within reach.?
[2025-01-22 06:39] LABS: Chloride* 103 mmol/L (96-114); Sodium* 134 mmol/L (135-149)
[2025-01-22 06:40] LABS: Potassium* 4.1 mmol/L (3.6-5.1)
[2025-01-22 06:42] LABS: Blood Urea Nitrogen* 14 mg/dL (7-30); Creatinine* 0.9 mg/dL (0.5-1.5); Estimated Glomerular Filt Rate 100 ml/min
[2025-01-22 06:43] LABS: Anion Gap 8 mEq/L (7-15); Calcium* 8.6 mg/dL (8.4-10.6); Carbon Dioxide* 23 mmol/L (20-32); Glucose* 79 mg/dL (60-115)
[2025-01-22 07:59] VITALS: BP 135/80; PULSE 61; RESP 16; TEMP 37; O2SAT 96
[2025-01-22] MEDS: SODIUM CHLORIDE 0.9 % (FLUSH) 10 ML SYRINGE 5 ML IVF ×2 (09:13→13:37)
[2025-01-22 11:00] VITALS: BP 136/84; PULSE 66; RESP 16; TEMP 36.7; O2SAT 94
--- NOTE | 2025-01-22 13:41 | NUTR.NU ---
RDN with MD consult for low residue/soft diet education. Patient admitted for small bowel obstruction. Patient has a history of recurrent bowel obstructions related to adhesions. Current weight 189lb 8oz; height 5ft 10in; BMI 27.2 kg/m2. Weight has been stable per weight history. Patient's diet advancing today. Plan is for patient is discharge home this afternoon. RDn visited with patient whom reports generally following a Mediterranean diet. He has received diet education in the past related to low residue/soft diet. He did accept educational materials and education. Patient was provided diet education on a low residue diet. Discussed foods to include and foods to avoid for the next few weeks until MD recommends advancing. Education also included avoiding high-fat, high-sugar foods and tough meats. Recommended patient include physical activity daily and drink at least 10 cups of fluid daily. Verbal and written information provided from [facility]. Patient verbalized understanding. RDN's contact information was provided and patient was encouraged to contact RDN with questions.
--- NOTE | 2025-01-22 14:01 | PC.NURSE ---
Shift Summary: Patient pleasant and cooperative. Up independently, ambulating frequently throughout the day in the halls. Vitals stable and WNL. Pt passing gas and had x1 formed stool. Pain well managed with PRN medication, see MAR. Bowel sounds active. Advancing diet slowly, tolerating well, denies nausea.
--- NOTE | 2025-01-22 15:30 | PC.NURSE ---
Pt discharged home via self at 1515. Pt belongings and discharge instructions reviewed, no questions or concerns at this time.
--- NOTE | 2025-01-22 16:36 | P.DS_ITS ---
DS: Providers Provider Date Seen: 01/22/25 Date of admission: 01/20/25 13:09 Primary care physician: Lawson Key MD Admitting Clinician: Edel Carmichael MD Consults: 01/22/25 11:49 Consult to Nutrition [CONS] Routine Comment: Reason for consult:: Miscellaneous Comment: Recurrent SBO, low residue diet instrutions please Attending Physician on discharge: Shalom Santoro MD Date of Discharge: 01/22/25 DS: Diagnosis Discharge Diagnosis (1) Small bowel obstruction: Status: Acute Problem details: -Dr. Davila will sign off and we can consult again if clinical path changes. will advance to clears. -previous abdominal surgeries: adrenalectomy, appy with meckel's diverticu lectomy -previous admissions and ER visits. conservative approach (+/- NG and/or Gastrografin challenge) -I have written for IV acetaminophen, IV Toradol, IV Dilaudid for p.r.n. severe pain (2) Hypertension with goal blood pressure less than 130/80: Status: Acute Problem details: no current pharm therapy -previously was on hydrochlorothiazide for kidney stones. He said when he is not in pain his blood pressure is totally normal. (3) Cerebrovascular accident (CVA) of pontine structure: Status: Acute Problem details: May 2024 MR negative presumed pontine infarction. s/p IV Tenecteplase. Noted previous right cerebellum CVA. fusiform dilation noted in the vertebral artery is considered an atherosclerotic plaque May 2024 sx diplopia, numbness rec'd TNK at [facility] and then transferred to [facility] showed MVP with mod MR and PFO. 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 His symptoms started last night and have not improved overnight. He states he had a small bowel movement this morning. But otherwise nothing has really changed and he has not been able to get comfortable. He denies fever, chills. His past medical history is relevant for a recent ischemic stroke in May of 2024 secondary to a PFO. He also has a history of kidney stones and benign adrenal mass. His 1st abdominal surgery was an anterior approach for an adrenalectomy. This was in 2008. In 2010 he had a Meckel's diverticulum and appendectomy. His 1st obstruction was around 20 13/2 0 14. He has had a couple of admissions necessitating NG and Gastrografin. However he has not needed surgery related to a small bowel obstruction. He has had several ER visits for either kidney stones or small-bowel obstructions. ?ER COURSE: CT abdomen pelvis, fluids, pain and nausea management ?CODE STATUS: FULL CODE? His small-bowel obstruction was managed conservatively. Did not require NG tube placement. Slowly over time he was able to tolerate clear liquids then full liquids and soft diet. Started passing flatus and stool. Followup as specified below. Status at Discharge Functional status at discharge: independent ambulation Overall status at discharge: patient is progressing back to baseline Time Spent with Patient Time attestation: Total time spent providing and/or coordinating discharge services: Time spent: Less than 30 minutes Exam Narrative: Exam Narrative: Objective: walking the halls; looks comfortable. Vitals: see above Lungs: Clear. Cardiac: S1S2. Abdomen: soft. mildly tenderness. No focal motor neurologic deficits. Const: Vital Signs, click to edit/add: Vital Signs - 24 hr 01/21/25 19:20 01/21/25 20:00 01/21/25 23:00 Temperature 99 F 99 F Pulse Rate [Right Pulse Oximeter] 62 61 Respiratory Rate 16 18 Blood Pressure [Ri ght Arm] 171/98 H 147/93 H Pulse Oximetry 96 95 Oxygen Delivery Me thod Room Air Room Air 01/21/25 23:00 01/22/25 03:00 01/22/25 07:59 Temperature 98.6 F Pulse Rate [Right Pulse Oximeter] 61 61 Respiratory Rate 18 18 16 Blood Pressure [Ri ght Arm] 135/80 Pulse Oximetry 96 Oxygen Delivery Me thod Room Air 01/22/25 11:00 Temperature 98.1 F Pulse Rate [Right Pulse Oximeter] 66 Respiratory Rate 16 Blood Pressure [Ri ght Arm] 136/84 Pulse Oximetry 94 Oxygen Delivery Me thod Room Air DS: Data Data Completed and Pending Labs on day of discharge: Labs from last 24 hours 01/22/25 01/22/25 05:43 04:00 WBC 4.28 L RBC 4.66 Hgb 13.6 Hct 41.0 MCV 88 MCH 29 MCHC 33 Plt Count 165 Sodium 134 L Potassium 4.1 Chloride 103 Carbon Dioxide 23 Anion Gap 8 BUN 14 Creatinine 0.9 Estimated Creat Clear 93.50 Estimated GFR 100 Glucose [address] scan of abdomen and pelvis: Radiologist's impression: Impression: 1. Small-bowel obstruction at the level of the terminal ileum/ileocecal valve with irregular wall thickening. A small amount of adjacent free fluid is present extending into the right pericolic gutter, subhepatic space and pelvis. Thickening is likely due to inflammation although tumor can not be excluded. Appendix not visualized so clinical correlation is necessary. 2. Bilateral nephrolithiasis without evidence for urinary obstruction. Discharge Plan Discharge Disposition: Home, Self-Care Date of Admission: 01/20/25 13:09 Attending Provider on Discharge: Shalom Santoro Primary Care Provider: Lawson Key Condition: Improved Anticipated Discharge Date/Time: 01/22/25 15:30 Discharge Medications: Continued aspirin [Adult Aspirin Regimen] 81 mg tablet,delayed release (DR/EC) 81 mg PO DAILY cholecalciferol (vitamin D3) 125 mcg (5,000 unit) capsule 125 mcg PO DAILY escitalopram oxalate [Lexapro] 10 mg tablet 10 mg PO DAILY rosuvastatin 20 mg tablet 20 mg PO HS Discharge Orders: Discharge Order (Routine); Ordered 01/22/25 Ordered By: Shalom Santoro Patient Education: Low Fiber Diet (DC), Liquids and Hydration for Athletes (DC), Bowel Obstruction (DC) Additional Instructions: 1. Follow-up with primary care physician as already planned 2. Schedule colonoscopy in next 2-6 weeks and follow-up with your primary care physician 3-5 days later to review colonoscopy findings and recommendations thereafter Activity Level: No Restrictions and Activity as Tolerated Discharge Diet: Low Fiber Diet Detail: Low fiber diet for next 1 week, then gradually increase fiber intake to usual amount over 1-2 weeks, then slowly increase to 20-40 grams fiber daily over following 4-6 weeks as tolerated. Maintain adequate hydration at all times, with adequate solute in diet. Follow Up Appointments: Lawson Key MD [Primary Care Provider] - 01/29/25 9:45 am Forms: AT Internet Info Instructions
== END 2025-01-22 15:15 | disposition home or self-care (01) ==
LOC: ED 12:35 → MEDSURG 13:10
PROVIDERS: Admitting Provider Family Medicine; Emergency Provider Family Medicine; PCP Family Medicine; Visit Provider Family Medicine
DX: K56.609 Unspecified intestinal obstruction, unspecified as to partial versus complete obstruction (principal); K56.50 Intestinal adhesions [bands], unspecified as to partial versus complete obstruction; Z83.79 Family history of other diseases of the digestive system; Z87.19 Personal history of other diseases of the digestive system; Z90.49 Acquired absence of other specified parts of digestive tract; I10 Essential (primary) hypertension; Q21.12 Patent foramen ovale; I34.1 Nonrheumatic mitral (valve) prolapse; E78.00 Pure hypercholesterolemia, unspecified; F41.1 Generalized anxiety disorder; K21.9 Gastro-esophageal reflux disease without esophagitis; Z79.82 Long term (current) use of aspirin; Z86.73 Personal history of transient ischemic attack (TIA), and cerebral infarction without residual deficits; Z98.890 Other specified postprocedural states; Z87.891 Personal history of nicotine dependence; Z87.898 Personal history of other specified conditions
CPT/HCPCS: 36415; 74177; 80048; 80053; 81001; 82248; 83605; 83690; 85025; 85027; 86140; 93005; 94761; 96361; 96365; 96366; 96368; 96372; 96375; 96376; 99284; 99285; A9270; G0378; J0131; J1171; J1650; J1885; J2405; J7030; Q9967

== ENCOUNTER 2025-03-31 11:17 | Emergency (ER) | payer BC, SELFPAY ==
--- OUTSIDE RECORDS SUMMARY | 2025-03-31 11:22 | XMS_ITS | Clinical Summary ---
Author Organization [facility] Address [address] [place] [address] Care Team Providers Care Fur Stylist Name Role Phone Elsewhere, Pcp Primary Care Provider Unavailabl e Source Comments Patient records contain information from all sites at [facility]. For routine questions regarding patient records, call [phone] during business hours, M-F 8:00 AM - 5:00 PM Central Time. Record requests for emergency care only can be directed to [phone] at any time.[facility] Allergies No known active allergies Medications * [...] drink = 0.6 oz pur e alcohol) [facility] Utilities Answer Date Recorded In the past 12 months has th e electric, gas, oil, or water [employer] threatened to shut off services in your [...] by your partner or ex-partner? No 02/24/2024 Hunger Vital Sign Answer Date Recorded Within [...] things needed for daily living? No 02/24/2024 Housing Stability Answer Date Recorded What is your living situation today? I have a [facility] to live 02/24/2024 Education Answer Date Recorded What is the highest level of school you have completed or the highest degree you have received? 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 Device Status Text - [id number]. Procedures Procedure [...] Reynoso M.D. LAB BLOOD ADD-ON Final Result [facility] [address] [place] [id number], [facility] in [address] [address] from Last 3 Months or Most Recently Relevant to Health Maintenance Insurance [facility] Advance Directives For more information, please contact: [phone] Documents on File Type Date Recorded Patient Gravel Wheeler Expl anation Advance Directives 02/27/2009 12:00 AM Leg acy document. See document viewer. Advance Directives 02/17/2009 12:00 AM Leg acy document. See document viewer. * Full Code (Latest Code Status on File) Date Activated Date Inactivated Comments 02/24/2024 12:31 AM 02/25/2024 5:33 PM Question Answer Comments Full Code: Discussed Care Teams Fur Stylist Relationship Specialty Start Date End Date Elsewhere, Pcp PCP - General Internal Medicine 02/23/24
--- OUTSIDE RECORDS SUMMARY | 2025-03-31 11:22 | XMS_ITS | Clinical Summary ---
Author Organization [facility] Address [address] [place] [address] Care Team Providers Care Ultrasound Applications Specialist Name Role Phone Lawson Key MD Primary Care Provider [phone] Source Comments You are receiving this document as you are listed as the primary care provider,follow-up provider, or the patient has been referred to you for consultation.This is in compliance with the Medicare and[facility] EHR Incentive Program,which states Providers who transition their patient to another setting of careor provider of care or refers their patient to another provider of care shouldprovide summary care record for each transition of care or referral. [facility] Allergies No known active allergies Medications tamsulosin [...] 5 season) 2024 12/19/2020, 11/17/2020 Influenza Vaccine (Season Ended) 2025 DTaP/Tdap/Td Vaccine (3 - Tdap) 03/29/2033 03/29/2023, [...] this topic Insurance [employer] Care Teams Ultrasound Applications Specialist Relationship Specialty Start Date End Date Lawson Key MD [address] [place] [address] PCP - General Family Practice 11/15/23
--- OUTSIDE RECORDS SUMMARY | 2025-03-31 11:22 | XMS_ITS | Clinical Summary ---
Author Organization [facility] Address [address] [place] [address] Care Team Providers Care Administrative Clerk Name Role Phone Lawson Key MD Primary Care Provider [phone] Allergies No known active allergies Medications tamsulosin [...] Gastroesophageal reflux disease without esophagi tis 03/14/2020 Encounters Date Type Department Care Team Description 03/31/2025 Telephone [facility] [address] [place] [address] Ольга Severino NP Questions from Last 3 Months Family History Medical History Relation Name Comments [...] Hepatitis C screening for age 18-79 1985 Hepatitis B series for 19+ ( 1 of 3 - 19+ 3-dose series) 1986 Pneumococcal series for age 50+ (1 of 2 - PCV) 1986 Tetanus booster 1987 Colonoscopy through age 75 2012 Zoster (shingles) series for age 50+ (1 of 2) 2017 COVID-19 vaccine series ( season) 2024 12/19/2020, 11/17/2020 Influenza Vaccine (Season [...] - 199 mg/dL 05/19/2024 6:45 AM CDT [facility] Comment: Cholesterol, Total Reference Ranges Desirable <200 mg/dL Borderline 200-239 mg/dL High >=240 mg/dL TRIGLYCERIDES 190(H) <150 mg/dL 05/19/2024 6:45 AM CDT [facility] HDL CHOLESTEROL 42 >40 mg/dL 6:45 AM CDT [facility] NON-HDL CHOLESTEROL 185(H) <145 mg/dl 05/19/2024 6:45 AM CDT [facility] CHOL/HDL RATIO 5.40(H) <4.50 05/19/2024 6:45 AM CDT [facility] LDL CHOLESTEROL 147(H) <=130 mg/dL 05/19/2024 6:45 AM CDT [facility] VLDL CHOLESTEROL 38(H) <=30 mg/dL 05/19/2024 6:45 AM CDT [facility] PROVIDER ORDERED STATUS RANDOM 05/19/2024 6:45 AM CDT [facility] Blood BLOOD SPECIMEN / Unknown Venipuncture / Unknown 05/19/2024 5:47 AM CDT 05/19/2024 6:09 AM CDT us Zhanna Madrid MD CHEMISTRY F inal Result [facility] [address] [place] [address], from Last 3 Months or Most Recently Relevant to Health Maintenance Insurance [employer] [place] [employer] Advance Directives * Full Code (Latest Code Status on File) Date Activated Date Inactivated Comments 05/18/2024 1:30 PM 05/20/2024 5:45 PM Question Answer Comments Code Status Discussion: Reviewed Preferences Care Teams Administrative Clerk Relationship Specialty Start Date End Date Lawson Key MD [address] [place] [address] PCP - General Family Practice 03/02/20
[2025-03-31 11:31] VITALS: BP 132/81; PULSE 62; RESP 18; TEMP 35.8; O2SAT 97; BMI 25.9
--- NOTE | 2025-03-31 11:41 | CRLHL7_ITS ---
For Patients: As a result of the Century Cures Act, medical imaging exams and procedure reports are released immediately into your electronic medical record. You may view this report before your referring provider. If you have questions, please contact your health care provider. INDICATION: COMPARISON: CT head on May 18, 2024 TECHNIQUE: CT of the head without contrast. FINDINGS: Brain Parenchyma: No acute infarct, acute intracranial hemorrhage, mass effect, or midline shift. Ventricles: No hydrocephalus. Extra-axial Spaces: No abnormal fluid collection. Paranasal sinuses: No significant mucosal thickening. Likely mucous retention cysts in the bilateral maxillary sinuses, partially outside of the field of view, which were seen on prior exam. Orbits: Unremarkable Mastoid Sinuses: Unremarkable Cranium: No acute fracture Soft tissues: Unremarkable IMPRESSION: No CT evidence of an acute intracranial process. Please note that all CT scans at this facility use dose modulation, iterative reconstruction, and/or weight-based dosing when appropriate to reduce radiation dose to as low as reasonably achievable. Dictated by Nikos Kelley MD @ 03/31/2025 12:27:48 PM (Electronically Signed)
--- NOTE | 2025-03-31 12:56 | ED.GENADULT ---
HPI - General Adult General Date Seen: 03/31/25 Chief complaint: Neuro Symptoms/Altered Deficit Stated complaint: a little unbalancing- blurry vision Time Seen by Provider: 03/31/25 12:37 History of Present Illness HPI narrative: 59 yo M with a history of PFO, stroke about 1 year ago, hypertension, high cholesterol, history of a benign brain tumor resected about 15 years ago, anxiety, also kidney stones small bowel obstruction. He presents to the ER today with his with concern for recurrent neurologic symptoms. He has been doing very well since his stroke last summer and is basically has no residual symptoms. In his took 2 week trip to [facility] and got back a few days ago. He does note that while he was on that trip he experience in an episode of abdominal pain that was probably a small-bowel obstruction that self resolved. He did spend 1 night at an ER in [facility]. Since yesterday morning at about 8:00 a.m. when he woke up he has had some recurrent neurologic symptoms. He had a little bit of unsteadiness and ataxia, mildly foggy vision and a little bit of fogginess with his thinking. He feels a little bit slow with his vision and that when he turns his head, it takes a split 2nd for his eyes to catch up with his head as it turns. No other symptoms. No definite unilateral vision loss. No visual field deficits. No numbness or tingling or weakness in his face, arms or legs. No slurred speech. He says overall he is feeling better today than yesterday but is still not back to normal. He called his PCP and his neurologist was c instructed to come to the ER. I saw him here in the ER in May 2024 for symptoms including tingling left arm, unsteady gait, blurry vision. Diagnosis any acute ischemic stroke and treated with tPA. He was transferred [facility]. Per medical record from [facility] and based on the patient's discharge summary dated 05/20/2014. Jem Fuentes is a(n) 58 y.o. with a history of hypertension, hyperlipidemia, GERD, BPH, who was admitted on 05/18/2024 with diplopia, and left-sided numbness. Patient was on a fishing trip in [place] and returned to [place] 05/17. He woke up the morning 644 of 05/18 in his usual state of health. At around 0825 patient developed numbness of the left arm and face. He also had acute onset of binocular diplopia which was worse when he looked to his left. His brought him to the [place] ED, where stroke code was called. Head CT was unremarkable. Patient received IV TNK at 1003. Patient subsequently transferred to [facility] neuro ICU for further evaluation and management. Patient seen by runner man and stroke neurologist in the ICU. MRI brain 05/19/2024 showed mild fusiform dilation of the intracranial segment of the left vertebral artery, no intracranial hemorrhage, no acute brain parenchymal pathology was identified, small chronic infarct of the right cerebellum. Hospitalist service consulted 05/19 as patient was determined stable to transfer out of the ICU. Transesophogeal echocardiography 05/20 showed MVP with moderate MR, and PFO with right to left shunt, especially with cough. Pt discharged home DAPT x 1 month (aspirin and plavix). Stop Plavix after 30 days but continue aspirin 81 mg daily. Pt will have OP OT, stroke follow up in 1 month. Should have follow echocardiogram in 1 year, can follow up with Cardiology in 1 year after echocardiogram - [facility]. Pt given Dr. Franco javier and can call to make appt Related Data Home Medications ?Medication ?Instructions ?Recorded ?Confirmed aspirin 81 mg tablet,delayed 81 mg PO DAILY 05/22/24 03/31/25 release (Adult Aspirin Regimen) rosuvastatin 20 mg tablet 20 mg PO HS 01/20/25 03/31/25 Previous Rx's ?Medication ?Instructions ?Recorded escitalopram oxalate 10 mg tablet 10 mg PO DAILY #90 tabs 02/04/25 (Lexapro) cholecalciferol (vitamin D3) 125 125 mcg PO DAILY #90 caps 03/04/25 mcg (5,000 unit) capsule Allergies Allergy/AdvReac Type Severity Reaction Status Date / Time No Known Drug Allergies Allergy Verified 02/04/25 10:00 [facility] Medical History (Updated 03/31/25 @ 15:25 by Keven Urbina MD) Calcium nephrolithiasis ?N20.0 - Calculus of kidney (ICD-10) ROMINA (generalized anxiety disorder) ?F41.1 - Generalized anxiety disorder (ICD-10) Cerebrovascular accident (CVA) of pontine structure ?I63.50 - Cerebral infarction due to unspecified occlusion or stenosis of unspecified cerebral artery (ICD-10) BPH (benign prostatic hyperplasia) ?N40.0 - Benign prostatic hyperplasia without lower urinary tract symptoms (ICD-10) GERD (gastroesophageal reflux disease) ?K21.9 - Gastro-esophageal reflux disease without esophagitis (ICD-10) Excessive daytime sleepiness ?G47.19 - Other hypersomnia (ICD-10) Pericarditis ?I31.9 - Disease of pericardium, unspecified (ICD-10) Vitamin D deficiency (05/15/10) ?E55.9 - Vitamin D deficiency, unspecified (ICD-10) Snoring ?R06.83 - Snoring (ICD-10) Mitral valve prolapse ?I34.1 - Nonrheumatic mitral (valve) prolapse (ICD-10) PFO (patent foramen ovale) ?Q21.12 - Patent foramen ovale (ICD-10) Hx SBO ?Z87.19 - Personal history of other diseases of the digestive system (ICD-10) Meckel diverticulum ?Q43.0 - Meckel's diverticulum (displaced) (hypertrophic) (ICD-10) Surgical History (Updated 01/20/25 @ 13:04 by Edel Carmichael MD) History of colonoscopy ?Z98.890 - Other specified postprocedural states (ICD-10) H/O knee surgery ?Z98.890 - Other specified postprocedural states (ICD-10) History of renal stent S/P appendectomy ?Z90.49 - Acquired absence of other specified parts of digestive tract (ICD-10) History of adrenal surgery ?Z98.890 - Other specified postprocedural states (ICD-10) S/P hernia repair ?Z98.890 - Other specified postprocedural states (ICD-10) ?Z87.19 - Personal history of other diseases of the digestive system (ICD-10) Family History Mother Cervical cancer Father Coronary artery disease High blood pressure Other Crohn's disease Leukemia Social History Narrative: 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 does not use illicit drugs nonsmoker social alcohol use What is your current living situation?: I presently have a place to live Problems where you live: no known problems Problems where you live details: na In the past 12 months, utilities in danger of being shut off: no In past 12 months, lack of transportation kept you from medical appts, meetings, work, or getting things needed for daily living: no In the past 12 mos, have been you worried that your food would run out before you had money to buy more?: never true In the past 12 mos, the food you bought just didn't last and you didn't have money to buy more?: never true Highest level of school completed/degree received: 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 (MD, SILVANO, DVM, DDS) Smoking Status: Former smoker What tobacco products do you use: cigarettes Smoking quit date/years: >15 years ago Do you use any of these nicotine containing products: None Second hand tobacco smoke exposure: No How often do you have a drink containing alcohol: 2-3 times a week Alcohol type: beer and wine How many standard drinks containing alcohol do you have on a typical day: 1 or 2 How often do you have six or more drinks on one occasion: Weekly AUDIT-C Alcohol total score: 6 Non-prescribed substance use: denies use Caffeine: Yes (1 cup) How often does anyone, including family, friends and others, physically hurt you: never How often does anyone, including family, friends and others, insult or talk down to you: never How often does anyone, including family, friends and others, threaten you with harm: never How often does anyone, including family, friends and others, scream or curse at you: never service: No Exam Narrative: Exam Narrative: Constitutional: Appears well-developed and well-nourished. Alert. Conversant. Non toxic. HENT: Head: Atraumatic. Exam head trauma. Nose: Nose normal. Mouth/Throat: Oral mucosa is clear and moist. no trismus. Pharynx normal. Tonsils symmetric. No tonsillar enlargement, erythema, or exudate. Eyes: Conjunctivae normal. EOM normal. Pupils equal, round, and reactive to light. No scleral icterus. Neck: Normal range of motion. Neck supple. No tracheal deviation present. Cardiovascular: Normal rate, regular rhythm. No gallop. No friction rub. No murmur heard. Symmetric radial artery pulses Pulmonary/Chest: Effort normal. No stridor. No respiratory distress. No wheezes. No rales. No rhonchi . No tenderness. Abdominal: Soft.No distension. No mass. No tenderness. No rebound. No guarding. Musculoskeletal: RUE: Normal range of motion. No tenderness. No deformity LUE: Normal range of motion. No tenderness. No deformity RLE: Normal range of motion. No edema. No tenderness. No deformity LLE: Normal range of motion. No edema. No tenderness. No deformity Neurological: Mental status normal. Attention normal. Alert and oriented x3. GCS 15. Memory normal. Speech fluent. Cognition normal. Cranial Nerves intact II-XII except I did not formally test gag or visual acuity. EOMI. Palate elevates symmetrically and tongue protrudes in the midline. Strength: 5/5 trapezius on the right and left 5/5 deltoid on the right and left 5/5 biceps on the right and left 5/5 triceps on the right and left 5/5 bull wheel worker on the right and left 5/5 thumb opposition on the right and left 5/5 finger abduction on the right and left 5/5 hip flexors (L3) on the right and left 5/5 quadriceps (L4) on the right and left 5/5 tibialis anterior on the right and left 5/5 EHL (L5) on the right and left 5/5 gastrocnemius (S1) on the right and left 5/5 hamstring on the right and left Sensation intact to light touch in both upper extremities (C4-T1) Sensation intact to light touch in Both lower extremities (L4-S1). Finger to nose and coordination normal. Gait normal and steady in the hallway. Romberg normal. Skin: Skin is warm and dry. No rash noted. No pallor. Normal capillary refill. Psychiatric: Normal mood. Normal affect. Const: Vital Signs, click to edit/add: Vital Signs - 24 hr 03/31/25 11:31 03/31/25 15:35 Temperature 96.5 F L Pulse Rate [Pulse Oximeter] 62 55 L Respiratory Rate 18 18 Blood Pressure [Ri ght Upper Arm] 132/81 142/92 H Pulse Oximetry 97 96 Oxygen Delivery Me thod Room Air Room Air Course Course ED Course: Patient arrived to the ER triage. The ER was full so I placed orders for a stat noncontrast head CT to be done while the patient was at triage. This was obtained and was normal. The patient was ultimately brought back to ER bed 5 where I performed initial history and physical. Did not have any ongoing stroke symptoms that were definitive but did still have some vague sensation of slow notes with his eyes with head turning and slightly foggy thinking. After discussion with stroke neurology from [place] we ordered a brain MRI to make sure there was not a recurrent infarct since his previous infarct had been pontine and cerebellar. Brain MRI came back and looked normal. EKG shows sinus rhythm. Labs are otherwise normal. Blood pressure was elevated yesterday but is essentially normal at baseline today at about 130/80. Discussed again with stroke neurology after MRI came back. They are reassured by the normal findings. Since patient's symptoms overall are much better today compared to yesterday, we presume this is potentially a peripheral vertigo that is improving. Stroke Neurology recommends no further medication change. Patient is safe for outpatient management. They would recommend outpatient follow-up with PCP for blood pressure monitoring. Vital Signs Vital signs: Initial Vital Signs Temperature 96.5 F L 03/31/25 11:31 Temperature Source Temporal Artery Scan 03/31/25 11:31 Pulse Rate 62 03/31/25 11:31 Pulse Rhythm Regular 03/31/25 11:31 Respiratory Rate 18 03/31/25 11:31 Blood Pressure 132/81 03/31/25 11:31 Blood Pressure Mean 98 03/31/25 11:31 Blood Pressure Position Sitting 03/31/25 11:31 Pulse Oximetry 97 03/31/25 11:31 Oxygen Delivery Method Room Air 03/31/25 11:31 Vital Signs Temperature 96.5 F L 03/31/25 11:31 Pulse Rate 62 03/31/25 11:31 Respiratory Rate 18 03/31/25 11:31 Blood Pressure 132/81 03/31/25 11:31 Pulse Oximetry 97 03/31/25 11:31 Oxygen Delivery Method Room Air 03/31/25 11:31 Temperature 96.5 F L 03/31/25 11:31 Pulse Rate 55 L 03/31/25 15:35 Respiratory Rate 18 03/31/25 15:35 Blood Pressure 142/92 H 03/31/25 15:35 Pulse Oximetry 96 03/31/25 15:35 Oxygen Delivery Method Room Air 03/31/25 15:35 Medical Decision Making [facility] Narrative Medical decision making narrative: This patient presents for evaluation of dizziness. The differential diagnosis of vertigo is broad and includes common etiologies such as menieres disease, labyrinthitis, benign positional vertigo, otitis media, etc. More serious etiologies considered include central etiologies such as tumor, intracerebral bleed, dissection, ischemic cerebral vascular accident. Patient has history of stroke last year at a fairly young age and was sent here by his neurologist with concern for recurrent stroke causing his dizziness. Stat noncontrast head CT is normal in brain MRI is normal. And consultation with Stroke Neurology they feel the patient is safe for outpatient management and further workup PCP. Potentially this could represent a peripheral vertigo. They did not recommend any new anticoagulants or antiplatelets or new changed his meds other than having careful monitoring 1st blood pressure and if he does have more days of hypertension, may require antihypertensives. Other workup shows EKG with sinus rhythm. No ischemia. Troponin negative. Sodium, blood sugar, electrolytes, kidney function normal. Hemoglobin is normal. No symptoms of bleeding. Return precautions given for home. Discussed in detail with the patient and his . They are pleased with the normal MRI and patient is eager discharge. Lab Data Labs: Lab Results 03/31/25 Range/Units 13:36 WBC 5.68 (4.50-11.00) K/uL RBC 5.18 (4.30-5.90) m/uL Hgb 15.1 (13.5-17.5) gm/dL Hct 45.9 (37.0-53.0) % MCV 89 (80-100) fL MCH 29 (26-34) pg MCHC 33 (32-36) gm/dL RDW Coeff of Diamond 13.0 (11.5-15.5) % Plt Count 250 (140-440) K/uL Neut % (Auto) 70.6 (42.0-72.0) % Lymph % (Auto) 17.1 L (20-44) % [place] % (Auto) 7.9 (0.0-11.0) % Eos % (Auto) 3.3 (0.0-7.0) % Baso % (Auto) 0.9 (0.0-3.0) % Neut # (Auto) 4.01 (1.7-7.0) K/uL Lymph # (Auto) 1.00 (0.90-2.90) K/uL [place] # (Auto) 0.40 (0.00-0.90) K/UL Eos # (Auto) 0.19 (0.00-0.50) K/uL Baso # (Auto) 0.05 (0.00-0.30) K/uL Abs Immat Gran (auto) 0.01 (0.00-0.30) K/uL Imm/Tot Granulo (auto) 0.2 % INR 0.99 (0.91-1.10) Sodium 138 (135-149) mmol/L Potassium 4.9 (3.6-5.1) mmol/L Chloride 102 (96-114) mmol/L Carbon Dioxide 29 (20-32) mmol/L Anion Gap 7 (7-15) mEq/L BUN 24 (7-30) mg/dL Creatinine 0.9 (0.5-1.5) mg/dL Estimated Creat Clear 93.50 Estimated GFR 100 ml/min Glucose 105 (60-115) mg/dL Calcium 9.7 (8.4-10.6) mg/dL Troponin I < 0.01 (0.01-0.04) ng/mL Imaging Data CT scan - head: Attestation: I have reviewed the pertinent imaging results. Radiologist's impression: IMPRESSION: No CT evidence of an acute intracranial process. MRI brain: Attestation: I have reviewed the pertinent imaging results. Radiologist's impression: Impression: 1. No acute intracranial abnormalities. 2. Small chronic lacunar infarct in the right lateral cerebellum. 3. Unremarkable MRI of the orbits. ECG Data Attestation: I personally reviewed and interpreted this ECG as follows: Interpretation: Sinus bradycardia Rate: 53 HI: 162 QRS axis: Normal axis. No pathologic Q-waves. ST segment/T wave: No ST segment elevation or depression QTc: 420 Discharge Plan Discharge Clinical Impression: Dizziness Patient Disposition: Home, Self-Care Condition: Stable Instructions: Dizziness (ED) Additional Instructions: As we discussed, your MRI looks good. No signs of any new strokes. We have discussed her case with the stroke specialist from [facility]. They want you to stay in your current medications for now and monitor the symptoms. We anticipate that they will get better over the next couple days. please monitor your blood pressure at home and measured once per day for the next week or 2 and then follow-up with your regular doctor for recheck. If you have more days with elevated blood pressure you may need to go on some blood pressure medications. If you have any recurring or worsening symptoms, please come back to the emergency department right away. Prescriptions: No Action escitalopram oxalate [Lexapro] 10 mg tablet 10 mg PO DAILY Qty: 90 3RF aspirin [Adult Aspirin Regimen] 81 mg tablet,delayed release (DR/EC) 81 mg PO DAILY rosuvastatin 20 mg tablet 20 mg PO HS cholecalciferol (vitamin D3) 125 mcg (5,000 unit) capsule 125 mcg PO DAILY Qty: 90 1RF Follow Up/Referrals: Lawson Key MD [Primary Care Provider, Family Practice] Stand Alone Forms: Talking Data Info Instructions
--- NOTE | 2025-03-31 13:04 | CRLHL7_ITS ---
For Patients: As a result of the Century Cures Act, medical imaging exams and procedure reports are released immediately into your electronic medical record. You may view this report before your referring provider. If you have questions, please contact your health care provider. Indication: Ataxia, foggy vision. Technique: MRI brain without contrast routine protocol. Noncontrast sagittal T1 weighted, axial FLAIR, axial T2 weighted, and axial diffusion weighted sequences are provided. Comparison: No prior studies available for comparison at this institution. Findings: The ventricles, sulci and gyri are normal size, shape and contour for age. Few punctate scattered foci of T2 prolongation in the supratentorial white matter are nonspecific but may represent sequela of migraine headaches or chronic small vessel disease. No pathologic susceptibility artifacts. Small chronic lacunar infarct in the right lateral cerebellum. The midline structures are centrally located with no evidence of shift. There are no suspicious intra or extra-axial fluid collections. No region of restricted diffusion. Expected flow voids in the cavernous carotids and basilar artery. Mild polypoid mucosal thickening in the maxillary sinuses. Impression: 1. No acute intracranial abnormalities. 2. Small chronic lacunar infarct in the right lateral cerebellum. 3. Unremarkable MRI of the orbits. Dictated by Gigi Garcia MD @ 03/31/2025 2:20:40 PM (Electronically Signed)
[2025-03-31 13:44] LABS: Basophils Absolute Auto 0.05 K/uL (0.00-0.30); Basophils Percent Auto 0.9 % (0.0-3.0); Eosinophils Absolute Auto 0.19 K/uL (0.00-0.50); Eosinophils Percent Auto 3.3 % (0.0-7.0); Hematocrit 45.9 % (37.0-53.0); Hemoglobin* 15.1 gm/dL (13.5-17.5); Immature Granulocytes Abs Auto 0.01 K/uL (0.00-0.30); Immature Granulocytes Pct Auto 0.2 %; Lymphocytes Percent Auto 17.1 % (20-44); Mean Corpuscular HGB Conc 33 gm/dL (32-36); Mean Corpuscular Hemoglobin 29 pg (26-34); Mean Corpuscular Volume 89 fL (80-100); Monocytes Percent Auto 7.9 % (0.0-11.0); Neutrophils Absolute Auto 4.01 K/uL (1.7-7.0); Neutrophils Percent Auto 70.6 % (42.0-72.0); Platelet Count* 250 K/uL (140-440); Red Blood Count 5.18 m/uL (4.30-5.90); Slide Review Reflex No; White Blood Count* 5.68 K/uL (4.50-11.00)
[2025-03-31 13:58] LABS: Chloride* 102 mmol/L (96-114); Sodium* 138 mmol/L (135-149)
[2025-03-31 13:59] LABS: Potassium* 4.9 mmol/L (3.6-5.1)
[2025-03-31 14:01] LABS: Blood Urea Nitrogen* 24 mg/dL (7-30); Creatinine* 0.9 mg/dL (0.5-1.5); Estimated Glomerular Filt Rate 100 ml/min
[2025-03-31 14:02] LABS: Anion Gap 7 mEq/L (7-15); Calcium* 9.7 mg/dL (8.4-10.6); Carbon Dioxide* 29 mmol/L (20-32); Glucose* 105 mg/dL (60-115); INR 0.99 (0.91-1.10); Prothrombin Time 13.9 Seconds
[2025-03-31 14:19] LABS: Troponin I* < 0.01 ng/mL (0.01-0.04)
[2025-03-31 15:35] VITALS: BP 142/92; PULSE 55; RESP 18; O2SAT 96
== END 2025-03-31 15:36 | disposition home or self-care (01) ==
PROVIDERS: Emergency Provider Emergency Medicine; PCP Family Medicine
DX: R42 Dizziness and giddiness (principal)
CPT/HCPCS: 36415; 70450; 70551; 80048; 84484; 85025; 85610; 93005; 99283; 99284; 99285

== ENCOUNTER 2025-04-05 07:59 | Outpatient (CLI) | payer BC, SELFPAY | END 2025-04-05 08:00 | disposition home or self-care (01) | LOC: NFLDREF 04-06 14:39 | PROVIDERS: PCP Family Medicine; Referring Provider Family Medicine; Visit Provider Family Medicine | DX: E78.00 Pure hypercholesterolemia, unspecified (principal); I10 Essential (primary) hypertension; R53.83 Other fatigue; I34.1 Nonrheumatic mitral (valve) prolapse; I63.50 Cerebral infarction due to unspecified occlusion or stenosis of unspecified cerebral artery | CPT/HCPCS: 80053; 80061; 82306; 83090; 83695; 84270; 84402; 84403; 86141 ==

== ENCOUNTER 2025-04-19 15:58 | Emergency (ER) | payer BC, SELFPAY ==
--- OUTSIDE RECORDS SUMMARY | 2025-04-19 08:30 | XMS_ITS | Continuity of Care Document ---
Author Organization [facility] Address [address] [address] [place] [address] Phone Care Team Providers Care Phlebotomy Technician Name Role Phone Sanchez HOUGH, Jim Unavailable Unavailable Allergies, Adverse Reactions, Alerts Substance Reaction Status Criticality No Known Allergies Active No Inform ation Medications Medication Instructions Dosage Effective Dates (start - stop) Status Comments Flomax 0.4 mg capsule take 1 capsule by oral route every day 1/2 hour following the same meal each day 0.4 MG - Active rosuvastatin 20 mg tablet take 1 tablet by oral route every day 20 MG - Active Vitamin D3 50 mcg (2,000 unit) capsule take 2 tablet by oral route every day 2 tablet - Active vitamin B complex tablet Take as directed - Active MAGNESIUM (unknown strength) take 1 capsule by oral route every day Not Available - Active aspirin 81 mg tablet,delayed release take 1 tablet by oral route every day 81 MG - Active CITALOPRAM HBR (unknown strength) take 1 tablet by oral route every day Not Available - Active Procedures Procedure Date Colonoscopy Flex; W/remov Les- Colonoscopy Flex; W/bx 1/mx Level Iv-surg Path Gross/micro Office Cons New/estab Mod Routine Serum Collection Offic/outpt E&m New Low-mod Advance Directives Directive Yes / No Effective Date File Name No Information Encounters Encounter Description Practice Location Reason(s) For Visit Diagnoses Date Provider Providers Copied on Encounter [facility], [address] [address], [place], [id number], [place] tel:[phone] [facility] Aphthous ulcer of ileumDiverticul osis of colon without diverticulitisH emorrhoids, internal 5 Sanchez Fernandez. [address], [id number], [place]. tel:[phone] Referring Provider: Referral Self, USE FOR SELF REFERRALS. [facility], [address] [address], [place], [id number], [place] tel:[phone] [facility] Aphthous ulcer of ileumDiverticul osis of colon without diverticulitisC olorectal polyp detected on colonoscopyHemo rrhoids, internalBenign neoplasm of rectumNoninfect guilherme gastroenteritis and colitis, unspecified 5 Sanchez Fernandez. [address], [id number], [place]. tel:[phone] Referring Provider: Referral Self, USE FOR SELF REFERRALS. Office Cons New/estab Mod [facility], [address] [address], [place], [id number], [place] tel:[phone] [facility] GI Symptoms or Concerns (chief complaint) Small bowel obstructionInfl ammation of small intestineDietar y counseling and surveillance 5 Sanchez Fernandez. [address], [id number], [place]. tel:[phone] Referring Provider: Lawson Key MD, [address] [place], [address]. tel:[phone] [facility], [address] [address], [place], [id number], [place] tel:[phone] [facility] No Information 5 Cameron Mena. [address], [id number], [place]. tel:[phone] Offic/outpt E&m New Low-mod [facility], [address] [address], [place], [id number], [place] tel:[phone] [facility] Additional Narrative (chief complaint)G I Symptoms or Concerns (chief complaint) Rectal bleedingRectal itching 8 No Information Referring Provider: Micaela Rawls [facility], [address] [place] [address], [address]. tel:[phone] Family History Family Member Type Diagnosis Age At Onset Sister Problem (finding) Crohn's disease Father Problem (finding) Crohn's disease Mother Problem (finding) malignant neoplasm of c ervix uteri Daughter Problem (finding) Crohn's disease Immunizations Vaccine Date Status Comments tetanus toxoid, reduced diphtheria toxoid, and acellular pertussis vaccine, adsorbed administered Note: [employer] b i-directional interface ; Source: Other Registry SARS-COV-2 (COVID-19) vaccin e, mRNA, spike protein, LNP, preservative free, 100 mcg/0.5mL dose or 50 mcg/0.25mL dose administered Note: [employer] bi -directional interface ; Source: Other Registry SARS-COV-2 (COVID-19) vaccin e, mRNA, spike protein, LNP, preservative free, 100 mcg/0.5mL dose or 50 mcg/0.25mL dose administered Note: [employer] bi -directional interface ; Source: Other Registry tetanus toxoid, reduced diphtheria toxoid, and acellular pertussis vaccine, adsorbed administered Note: [employer] b i-directional interface ; Source: Other Registry Payers Payer name Insurance type Covered libertarian ID Authoriza tiprisca(s) Blue Cross Of [facility] [id number] Social History Type Description Quantity Date Captured Comments Alcohol Use Details Unknown Caffeine Use Details Unknown Tobacco Use Status No Information Smoking Status Never smoker Sex Male Vital Signs Date / Time: Height Weight BMI Pulse Rate Blood Pressure Temperature Respiratory Rate Body Surface Area Head Circumference Head Circ. Percentile Wt./Brent. Percentile BMI percentile Pulse Ox Inhaled Ox 12:56 PM 70.00 in 82.770 kg (182.50 lbs) 26.2 0 kg/m eter (2) 58 /min 187/98 mm[Hg] 0.00 F 14 /min 97 % 0.00 in 0.000 kg (0.00 lbs) 26.2 0 kg/m eter (2) 69 /min 126/84 mm[Hg] 0.00 F 16 /min 98 % 0.00 in 0.000 kg (0.00 lbs) 26.2 0 kg/m eter (2) 66 /min 207/99 mm[Hg] 0.00 F 18 /min 97 % Chief Complaint And Reason For Visit No Information Reason For Referral Reason For Referral No Information Plan Of Treatment Date Type Action Status Goal Lifestyle education regardin g diet completed History Of Present Illness Encounter Date Complaint History Of Prese nt Illness GI Symptoms or Concerns This is a 59-year-old male with a past medical history of 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 He is being sent to us for the small bowel obstruction symptoms by Lawson Key MD.Patient notes that he has small bowel obstructive symptoms that have been confirmed on cross-sectional imaging every 1 to 3 years since his Meckel's diverticulum surgery as well as dual appendectomy. He says it manifest primarily with right lower quadrant pain and then shifted over towards the left portion of the abdomen throughout his hospital stay. His hospital stays ranged from 1 to 3 days and do not always require NG tube and always conservative management resolves the obstruction that is confirmed with cross-sectional imaging.He has had about 4-5 small bowel obstructions in his lifetime. They are confirmed with cross-sectional ridging. Most recent episode was in the middle of January 2025 which confirmed small bowel obstruction at the terminal ileum/ileocecal valve with irregular wall thickening and mention of adjacent free fluid around the Wilberto colic gutter. Some thickening around this area but they could not rule out inflammation or tumor.Currently his symptoms have almost all resolved though he still has some mild tenderness in the suprapubic area. He is having daily bowel movements no nausea or vomiting no weight loss prior to this.From a social Fama no smoking or recreational drug use drinks alcohol 2 times a week.He does have a significant family history of Crohn's with specifically in his 2 sisters, daughter, father and cousin. He was referred to me by our PRODUCT SAFETY TEST ENGINEER Jeff. Additional Narrative GI Symptoms or Concerns Mr. Surinder gayle is a very pleasant 52-year-old male who is referred here today by nurse practitioner Curly regarding rectal itching and bleeding.He reports that he has been having rectal bleeding about once per month for the past year and a half. He states that he will bleed for about 2 to 3 days in a row out of the month. He has associated rectal itching. He does not have any rectal pain. He states that he has regular bowel movements, but at times stools do seem to be thinner than normal. He denies straining. He has not seen blood mixed in with the stool and is only noticing it with wiping. He denies any abdominal pain or bloating, but he does have some gassiness. His weight has been stable. He reports that he was referred for a colonoscopy, which was done earlier this year at [facility] and was normal including no hemorrhoid seen. I do not have that result to review. I will request it.PAST MEDICAL HISTORYHis past medical history is significant for an adrenal Functional Status Date Functional Assessmen t No Information Instructions Date Instruction Additional Infor zo Diverticulosis/Diverticulitis Re lated to Diverticulosis of colon without diverticulitis Colon Cancer Prevention Related to Diverticulosis of colon without diverticulitis Hemorrhoids (Internal) Related t o Diverticulosis of colon without diverticulitis High Fiber Diet Related to Diver ticulosis of colon without diverticulitis Hemorrhoids (Internal) Related t o Aphthous ulcer of ileum High Fiber Diet Related to Aphth ous ulcer of ileum Colon Cancer Prevention Related to Aphthous ulcer of ileum Colon Polyps Related to Aphth ous ulcer of ileum -- Very nice to meet you Mesfin-- Discussed in clinic we will perform blood test, imaging test and colonoscopy to evaluate your small bowel blockages-- We will start with basic blood tests including inflammatory markers celiac disease and thyroid testing to ensure this is not something contributing to your symptoms-- We will also do a special type of CT scan called an enterography that evaluates very closely at your small intestine this evaluates for any inflammation suggestive of Crohn's disease as well as any impending obstruction or narrowing in the small intestine that a regular CT scan can miss-- We will then also proceed with a colonoscopy to evaluate the ileum/ileocecal valve-- We will set up a follow-up appointment afterwards to discuss everything in detail and discuss ideal next steps for you moving forward Related to Small bowel obstruction Lifestyle education regarding di et Related to Dietary counseling and surveillance -Start conservative management of hemorrhoids with adding in fiber supplement-Sitz baths up to 3 times a day -Can use over the counter treatment such as [id number] will request your colonoscopy report-Please let me know if ongoing issues and we can proceed with flexible sigmoidoscopy and consider banding of internal hemorrhoids Related to Rectal bleeding Hemorrhoids Related to Recta l bleeding Assessments Type Assessment Date assessment Aphthous ulcer of ileum 025 assessment Diverticulosis of colon without diverticulitis assessment Hemorrhoids, internal 5 Patient Care Teams Name Effective Dates (start - stop) Status Members No Information
--- OUTSIDE RECORDS SUMMARY | 2025-04-19 08:30 | XMS_ITS | Continuity of Care Document ---
Author Organization [facility] Address [address] [address] [place] [address] Phone Care Team Providers Care Public Welfare Worker Name Role Phone Sanchez HOUGH, Jim Unavailable [...] Diagnoses Date Provider Providers Copied on Encounter [facility], [address] [address], [place], [id number], [place] tel:[phone] [facility] Aphthous ulcer of ileumDiverticul osis of colon without diverticulitisH emorrhoids, internal 5 Sanchez Fernandez. [address], [id number], [place]. tel:[phone] Referring Provider: Referral Self, USE FOR SELF REFERRALS. [facility], [address] [address], [place], [id number], [place] tel:[phone] [facility] Aphthous ulcer of ileumDiverticul osis of colon without diverticulitisC olorectal polyp detected on colonoscopyHemo rrhoids, internalBenign neoplasm of rectumNoninfect guilherme gastroenteritis and colitis, unspecified 5 Sanchez Fernandez. [address], [id number], [place]. tel:[phone] Referring Provider: Referral Self, USE FOR SELF REFERRALS. Office Cons New/estab Mod [facility], [address] [address], [place], [id number], [place] tel:[phone] [facility] GI Symptoms or Concerns (chief complaint) Small bowel obstructionInfl ammation of small intestineDietar y counseling and surveillance 5 Sanchez Fernandez. [address], [id number], [place]. tel:[phone] Referring Provider: Lawson Key MD, [address] [place], [address]. tel:[phone] [facility], [address] [address], [place], [id number], [place] tel:[phone] [facility] No Information 5 Cameron Mena. [address], [id number], [place]. tel:[phone] Offic/outpt E&m New Low-mod [facility], [address] [address], [place], [id number], [place] tel:[phone] [facility] Additional Narrative (chief complaint)G I Symptoms or Concerns (chief complaint) Rectal bleedingRectal itching 8 No Information Referring Provider: Micaela Rawls [facility], [address] [place] [address], [address]. tel:[phone] Family History Family Member Type Diagnosis Age At Onset Sister Problem (finding) Crohn's disease Father Problem (finding) Crohn's disease Mother Problem (finding) malignant neoplasm of c ervix uteri Daughter Problem (finding) Crohn's disease Immunizations Vaccine Date Status Comments tetanus toxoid, reduced diphtheria toxoid, and acellular pertussis vaccine, adsorbed administered Note: [employer] b i-directional interface ; Source: Other Registry SARS-COV-2 (COVID-19) vaccin e, mRNA, spike protein, LNP, preservative free, 100 mcg/0.5mL dose or 50 mcg/0.25mL dose administered Note: [employer] bi -directional interface ; Source: Other Registry SARS-COV-2 (COVID-19) vaccin e, mRNA, spike protein, LNP, preservative free, 100 mcg/0.5mL dose or 50 mcg/0.25mL dose administered Note: [employer] bi -directional interface ; Source: Other Registry tetanus toxoid, reduced diphtheria toxoid, and acellular pertussis vaccine, adsorbed administered Note: [employer] b i-directional interface ; Source: Other Registry Payers Payer name Insurance type Covered green party ID Authoriza tiprisca(s) Blue Cross Of [facility] [id number] Social History Type Description Quantity Date Captured [...] He was referred to me by our READY MIX TRUCK DRIVER Jeff. Additional Narrative GI Symptoms or Concerns [...] which was done earlier this year at [facility] and was normal including no hemorrhoid [...] use over the counter treatment such as [id number] will request your colonoscopy report-Please let me [...]
--- OUTSIDE RECORDS SUMMARY | 2025-04-19 16:00 | XMS_ITS | Clinical Summary ---
Author Organization [facility] Address [address] [place] [address] Care Team Providers Care Boring Machine Operator Name Role Phone Elsewhere, Pcp Primary Care Provider Unavailabl e Source Comments Patient records contain information from all sites at [facility]. For routine questions regarding patient records, call [phone] during business hours, M-F 8:00 AM - 5:00 PM Central Time. Record requests for emergency care only can be directed to [phone] at any time.[facility] Allergies No known active allergies Medications * [...] Stone Kidney 05/11/2013 Deficiency Vitamin D 05/15/2010 Encounters Date Type Department Care Team Description 04/13/2025 [facility] [address] [place] [address] Lawson Key M.D. 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 I have a [facility] place to live 02/24/2024 Education Answer Date Recorded What is the highest level of school you have completed or the highest degree you have received? Professional school degree (e.g., , DDS, DVM, SILVANO) 06/14/2021 Sex and Gender Information Value Date Recorded Sex Assigned at Not on file Legal Sex Male 12:25 PM [employer] Gender Identity Not on file Sexual Orientation [...] of 2) 2017 COVID-19 Vaccine (3 - season) 2024 12/19/2020, 11/17/2020 Depression Screening (Annual PHQ-2) 10/07/2024 Influenza Vaccine (#1) 2025 Fasting Glucose for Diabetes Screening 05/19/2027 05/19/2024, 05/18/2024, 02/24/2024, Additional history exists Lipid (Cholesterol) Screening 05/19/2029 05/19/2024 DTaP,Tdap,and Td Vaccines (3 - Td or Tdap) 03/29/2033 03/29/2023, 05/22/2013 IPV Vaccines Aged Out No longer eligi ble based on patient's age to complete this topic Medical Devices Implanted Type Area Senior Litigation Paralegal Device Identifier Shelf Expiration Date Model / Serial / Lot Stent Percuflex 6 X 26 - Faith 1070 Implanted:Qty: 1 on 02/17/2009 Ureteral Stent Abdomen Wantful Description:Device Manufactu rer - [employer]. Device Status Text - [id number]. Procedures Procedure Name Priority Date/Time Associated Diagnosis Comments OUTSIDE MR NEURO Routine 03/31/2025 1:[address] NEURO Routine 03/31/2025 12:[address] BODY Routine 01/20/2025 11:00 AM CDT BASIC METABOLIC PANEL, S/P Routine 02/24/2024 4:58 AM CDT from Last 3 Months or Most Recently Relevant to Health Maintenance Results * MR head/brain wo con-Outside MR Neuro (03/31/2025 1:45 PM CDT) Narrative [facility] - 04/13/2025 11:10 AM CDT This order has been created and auto-finalized to support the import of outside images. If available, original interpretation can be found on the Media Tab in Chart Review, in Document Viewer, as an image in InfinityView or as an Addendum. If a re-interpretation or overread is required please follow defined workflow. us Provider Not In System IMG MRI PROCEDURES Final Result [facility] NA * CT HEAD/BRAIN WO CON-Outside CT Neuro (03/31/2025 12:05 PM CDT) Narrative [facility] - 04/13/2025 11:14 AM CDT This order has been created and auto-finalized to support the import of outside images. If available, original interpretation can be found on the Media Tab in Chart Review, in Document Viewer, as an image in InfinityView or as an Addendum. If a re-interpretation or overread is required please follow defined workflow. us Provider Not In System IMG CT PROCEDURES Final R esult Performing Organization Address City/[facility]/ZIP Co de Phone Number [facility] NA * CT ABDOMEN PELVIS W CON-Outside CT Body (01/20/2025 11:00 AM CDT) [facility] - 04/13/2025 11:11 AM CDT This order has been created and auto-finalized to support the import of outside images. If available, original interpretation can be found on the Media Tab in Chart Review, in Document Viewer, as an image in InfinityView or as an Addendum. If a re-interpretation or overread is required please follow defined workflow. us Provider Not In System IMG CT PROCEDURES Final R esult Performing Organization Address [facility] Co de Phone Number [facility] NA * Basic Metabolic Panel (02/24/2024 4:58 AM [...] Reynoso M.D. LAB BLOOD ADD-ON Final Result [facility] [address] [place] [address], [place] ECLR [facility] [place] [address] [place] [address] from Last 3 Months or Most Recently Relevant to Health Maintenance Insurance [facility] Advance Directives For more information, please contact: [phone] Documents on File Type Date Recorded Patient Wink Cutter Operator Expl anation Advance Directives 02/27/2009 12:00 AM Leg acy document. See document viewer. Advance Directives 02/17/2009 12:00 AM Leg acy document. See document viewer. * Full Code (Latest Code Status on File) Date Activated Date Inactivated Comments 02/24/2024 12:31 AM 02/25/2024 5:33 PM Question Answer Comments Full Code: Discussed Care Teams Boring Machine Operator Relationship Specialty Start Date End Date Elsewhere, Pcp PCP - General Internal Medicine 02/23/24
--- OUTSIDE RECORDS SUMMARY | 2025-04-19 16:00 | XMS_ITS | Clinical Summary ---
Author Organization [employer] [facility] Address [address] [place] [address] Care Team Providers Care Electric Deicer Assembler Name Role Phone Lawson Key MD Primary Care Provider Allergies No known active allergies Medications tamsulosin [...] Clinic [address] [place] [address] Ольга Severino NP Questions from [...] Health Maintenance Due Date Last Done Comments Tetanus booster 1978 Depression screening for age 12+ 1979 HIV for age 15-65 1982 Hepatitis C screening for age 18-79 1985 Hepatitis B series for 19+ ( 1 of 3 - 19+ 3-dose series) 1986 Pneumococcal series for age 50+ (1 of 2 - PCV) 1986 Colonoscopy through age 75 2012 Zoster (shingles) series for age 50+ (1 of 2) 2017 COVID-19 vaccine series (2023- season) 2024 12/19/2020, 11/17/2020 Influenza Vaccine (#1) 2025 BMI (ht and wt on same [...] mg/dL 05/19/2024 6:45 AM CDT [facility] Comment: Cholesterol, Total Reference Ranges Desirable <200 mg/dL Borderline 200-239 mg/dL High >=240 mg/dL TRIGLYCERIDES 190(H) <150 mg/dL 05/19/2024 6:45 AM CDT [facility] HDL CHOLESTEROL 42 >40 mg/dL 6:45 AM CDT [facility] NON-HDL CHOLESTEROL 185(H) <145 mg/dl 05/19/2024 6:45 AM CDT [facility] CHOL/HDL RATIO 5.40(H) <4.50 05/19/2024 6:45 AM CDT [facility] LDL CHOLESTEROL 147(H) <=130 mg/dL 05/19/2024 6:45 AM CDT [facility] VLDL CHOLESTEROL 38(H) <=30 mg/dL 05/19/2024 6:45 AM CDT [facility] PROVIDER ORDERED STATUS RANDOM 05/19/2024 6:45 AM CDT [facility] Blood BLOOD SPECIMEN / Unknown Venipuncture / Unknown 05/19/2024 5:47 AM CDT 05/19/2024 6:09 AM CDT us Zhanna Madrid MD CHEMISTRY F inal Result [facility] [address] [place] [address], from Last 3 Months or Most Recently Relevant to Health Maintenance Insurance [facility] [place] [id number] Advance Directives * Full Code (Latest Code Status on File) Date Activated Date Inactivated Comments 05/18/2024 1:30 PM 05/20/2024 5:45 PM Question Answer Comments Code Status Discussion: Reviewed Preferences Care Teams Electric Deicer Assembler Relationship Specialty Start Date End Date Lawson Key MD [address] [place] [address] PCP - General Family Practice 03/02/20
--- OUTSIDE RECORDS SUMMARY | 2025-04-19 16:01 | XMS_ITS | Clinical Summary ---
Author Organization [facility] Address [address] [place] [address] Care Team Providers Care Supervisor Detasseling Crew Name Role Phone Lawson Key MD Primary Care Provider [phone] Source Comments You are receiving this document as you are listed as the primary care provider,follow-up provider, or the patient has been referred to you for consultation.This is in compliance with the Medicare and[facility] EHR Incentive Program,which states Providers who [...] 2024 12/19/2020, 11/17/2020 Influenza Vaccine (#1) 2025 DTaP/Tdap/Td Vaccine (3 - Tdap) 03/29/2033 [...] this topic Insurance [employer] Care Teams Supervisor Detasseling Crew Relationship Specialty Start Date End Date Lawson Key MD [address] [place] [address] PCP - General Family Practice 11/15/23
--- OUTSIDE RECORDS SUMMARY | 2025-04-19 16:01 | XMS_ITS | Encounter Summary ---
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 [address] [place] [address] Phone: tel:[phone] fax:[phone] [facility] Referral ID Status Reason Start Date Expiration Date V isits Requested Visits Authorized [id number] Pending Review 04/13/2025 10/13/2026 1 1 Encounter Details Date Type Department Care Team (Latest Contact Info) Description 04/13/2025 [facility] [address] [place] [address] Lawson Key M.D. 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 Never true 02/24/20 24 Within the past 12 months, t he [...] your living situation today? I have a [facility] place to live 02/24/2024 Education Answer Date Recorded What is the highest level of school you have completed or the highest degree you have received? 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) Nonrheumatic Mitral Valve Prolapse Patent Foramen Ovale (HCC) Expected: 04/13/2025 (Approximate), Expires: 07/14/2026 Neurology Referral Outpatient Referral Routine 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
[2025-04-19 16:03] VITALS: BP 175/98; PULSE 86; RESP 20; TEMP 36.6; O2SAT 96; BMI 26.3
--- NOTE | 2025-04-19 16:48 | CRLHL7_ITS ---
For Patients: As a result of the Century Cures Act, medical imaging exams and procedure reports are released immediately into your electronic medical record. You may view this report before your referring provider. If you have questions, please contact your health care provider. INDICATION: Left flank/groin pain. TECHNIQUE: CT abdomen and pelvis without contrast. COMPARISON: January 20, 2025. FINDINGS: Lower chest: Scattered atelectasis. Liver: Normal in size and attenuation. No suspicious masses. Gallbladder and bile ducts: No stones or inflammation. No biliary dilatation. Pancreas: Unremarkable. No mass or inflammation. Spleen: Scattered granulomas. Normal in size. No masses. Adrenal glands: Normal in size. No nodules. Kidneys: Moderate left-sided hydroureteronephrosis secondary to 5 millimeter obstructing left UPJ stone. Additional bilateral nonobstructing renal stones. GI tract: Unremarkable. Normal in caliber. No sign of mass or inflammation. Appendix not seen, however no right lower quadrant inflammatory stranding. Vasculature: Abdominal aorta is normal in caliber. Lymph nodes: No lymphadenopathy. Peritoneum/Abdominal Wall: Tiny fat containing umbilical hernia. No sign of mass or infiltration. No free air or significant free fluid. Pelvis: Unremarkable. No pelvic masses. Bones: Unremarkable for age. IMPRESSION: Moderate left-sided hydroureteronephrosis secondary to 5 millimeter obstructing left UPJ stone. Additional bilateral nonobstructing renal stones. Please note that all CT scans at this facility use dose modulation, iterative reconstruction, and/or weight-based dosing when appropriate to reduce radiation dose to as low as reasonably achievable. Dictated by Richie Birmingham MD @ 04/19/2025 5:41:48 PM (Electronically Signed)
--- NOTE | 2025-04-19 17:12 | ED_ITS ---
HPI - General Adult General Date Seen: 04/19/25 Chief complaint: Flank Pain Stated complaint: possible kidney Stone Time Seen by Provider: 04/19/25 16:35 Source: patient Mode of arrival: ambulatory Limitations: no limitations History of Present Illness HPI narrative: Patient is a 59-year-old male presenting to the emergency department for left groin and flank pain. He states this pain started around noon today than sharp in nature. He has had multiple kidney stones before in states the pain has been exactly the same. Had had an episode of emesis but no further nausea currently he states. States previously he always needed Dilaudid for pain control. Has not urinated since the pain started. Had a colonoscopy earlier today so has not had much to eat or drink today. Denies fevers, chills, dysuria, polyuria, diarrhea, constipation, chest pain, shortness of breath, lightheadedness, dizziness. Has not had any penile discharge or bleeding. No other concerns noted at this time Related Data Home Medications ?Medication ?Instructions ?Recorded ?Confirmed aspirin 81 mg tablet,delayed 81 mg PO DAILY 05/22/24 0 04/19/25 release (Adult Aspirin Regimen) rosuvastatin 20 mg tablet 20 mg PO HS 01/20/25 5 tramadol 50 mg tablet 50 mg PO 3XD PRN pain 04/19/25 Previous Rx's ?Medication ?Instructions ?Recorded escitalopram oxalate 10 mg tablet 10 mg PO DAILY #90 t abs 02/04/25 (Lexapro) cholecalciferol (vitamin D3) 125 125 mcg PO DAILY #90 caps 03/04/25 mcg (5,000 unit) capsule tamsulosin 0.4 mg capsule 0.4 mg PO DAILY #10 caps Allergies Allergy/AdvReac Type Severity Reaction Status Date / Time No Known Drug Allergies Allergy Verified 04/19/25 16:03 Review of Systems Status of ROS: Reports: 10 or more systems reviewed and unremarkable except as noted in History and below [facility] Medical History Calcium nephrolithiasis ?N20.0 - Calculus of kidney (ICD-10) ROMINA (generalized anxiety disorder) ?F41.1 - Generalized anxiety disorder (ICD-10) Cerebrovascular accident (CVA) of pontine structure ?I63.50 - Cerebral infarction due to unspecified occlusion or stenosis of unspecified cerebral artery (ICD-10) BPH (benign prostatic hyperplasia) ?N40.0 - Benign prostatic hyperplasia without lower urinary tract symptoms (ICD-10) GERD (gastroesophageal reflux disease) ?K21.9 - Gastro-esophageal reflux disease without esophagitis (ICD-10) Excessive daytime sleepiness ?G47.19 - Other hypersomnia (ICD-10) Pericarditis ?I31.9 - Disease of pericardium, unspecified (ICD-10) Vitamin D deficiency (05/15/10) ?E55.9 - Vitamin D deficiency, unspecified (ICD-10) Snoring ?R06.83 - Snoring (ICD-10) Mitral valve prolapse ?I34.1 - Nonrheumatic mitral (valve) prolapse (ICD-10) PFO (patent foramen ovale) ?Q21.12 - Patent foramen ovale (ICD-10) Hx SBO ?Z87.19 - Personal history of other diseases of the digestive system (ICD-10) Meckel diverticulum ?Q43.0 - Meckel's diverticulum (displaced) (hypertrophic) (ICD-10) Surgical History History of colonoscopy ?Z98.890 - Other specified postprocedural states (ICD-10) H/O knee surgery ?Z98.890 - Other specified postprocedural states (ICD-10) History of renal stent S/P appendectomy ?Z90.49 - Acquired absence of other specified parts of digestive tract (ICD- 10) History of adrenal surgery ?Z98.890 - Other specified postprocedural states (ICD-10) S/P hernia repair ?Z98.890 - Other specified postprocedural states (ICD-10) ?Z87.19 - Personal history of other diseases of the digestive system (ICD-10) Family History Mother Cervical cancer Father Coronary artery disease High blood pressure Other Crohn's disease Leukemia Social History Narrative: 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 does not use illicit drugs nonsmoker social alcohol use What is your current living situation?: I presently have a place to live Problems where you live: no known problems Problems where you live details: na In the past 12 months, utilities in danger of being shut off: no In past 12 months, lack of transportation kept you from medical appts, meetings, work, or getting things needed for daily living: no In the past 12 mos, have been you worried that your food would run out before you had money to buy more?: never true In the past 12 mos, the food you bought just didn't last and you didn't have money to buy more?: never true Highest level of school completed/degree received: 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 (MD, SILVANO, DVM, DDS) Smoking Status: Former smoker What tobacco products do you use: cigarettes Smoking quit date/years: >15 years ago Do you use any of these nicotine containing products: None Second hand tobacco smoke exposure: No How often do you have a drink containing alcohol: 2-3 times a week Alcohol type: beer and wine How many standard drinks containing alcohol do you have on a typical day: 1 or 2 How often do you have six or more drinks on one occasion: Weekly AUDIT-C Alcohol total score: 6 Non-prescribed substance use: denies use Caffeine: Yes (1 cup) How often does anyone, including family, friends and others, physically hurt you : never How often does anyone, including family, friends and others, insult or talk down to you: never How often does anyone, including family, friends and others, threaten you with harm: never How often does anyone, including family, friends and others, scream or curse at you: never service: No Exam Narrative: Exam Narrative: Const: Well-nourished, Well-developed, in mild distress Eyes: PERRL, no conjunctival injection, and symmetrical lids HENT: Atraumatic external nose and ears. Moist mucous membranes. Neck: Symmetric, trachea midline, No thyromegaly. CVS: RRR, No murmurs or gallops. Peripheral pulses 2+ and equal in all extremities RESP: Unlabored respiratory effort. Clear to auscultation bilaterally. GI: Nontender/Nondistended, No rebound or guarding. Left flank tenderness MSK:Extremities w/o deformity, Normal Active ROM Skin: Warm, Dry. No rashes or lesions. Neuro: Normal Muscle tone, No focal neurological deficits. Psych: Awake, Alert, & Oriented x3. Appropriate mood and affect. Const: Vital Signs, click to edit/add: Vital Signs - 24 hr 04/19/25 16:03 Temperature 97.8 F Pulse Rate [Pulse Oximeter] 86 Respiratory Rate 20 Blood Pressure [Ri ght Upper Arm] 175/98 H Pulse Oximetry 96 Oxygen Delivery Me thod Room Air Course Vital Signs Vital signs: Initial Vital Signs Temperature 97.8 F 04/19/25 16:03 Temperature Source Temporal Artery Scan 04/19/25 16:03 Pulse Rate 86 04/19/25 16:03 Respiratory Rate 20 04/19/25 16:03 Blood Pressure 175/98 H 04/19/25 16:03 Blood Pressure Mean 123 H 04/19/25 16:03 Pulse Oximetry 96 04/19/25 16:03 Oxygen Delivery Method Room Air 04/19/25 16:03 Vital Signs Temperature 97.8 F 04/19/25 16:03 Pulse Rate 86 04/19/25 16:03 Respiratory Rate 20 04/19/25 16:03 Blood Pressure 175/98 H 04/19/25 16:03 Pulse Oximetry 96 04/19/25 16:03 Oxygen Delivery Method Room Air 04/19/25 16:03 Temperature 97.8 F 04/19/25 16:03 Pulse Rate 86 04/19/25 16:03 Respiratory Rate 20 04/19/25 16:03 Blood Pressure 175/98 H 04/19/25 16:03 Pulse Oximetry 96 04/19/25 16:03 Oxygen Delivery Method Room Air 04/19/25 16:03 Medications Administered Medications: Discontinued Medications Generic Name Dose Route Start Last Admin Trade Name Freq PRN Reason Stop Dose Admin Hydromorphone HCl 0.5 mg 04/19/25 16:50 04/19/25 17:08 Hydromorphone 0.5 Mg/0.5 Ml Inj IVP 04/19/25 16:51 0.5 mg ONCE ONE Administration Hydromorphone HCl 0.5 mg 04/19/25 17:57 04/19/25 18:15 Hydromorphone 0.5 Mg/0.5 Ml Inj IVP 04/19/25 17:58 0.5 mg ONCE ONE Administration Sodium Chloride 1,000 mls @ 1,000 mls/hr 04/19/25 17:45 04/19/25 18:14 0.9 % Sodium Chloride 1000 Ml IV 04/19/25 18:44 1,000 mls/hr .Q1H CRISTY Administration Ondansetron HCl 4 mg 04/19/25 17:10 04/19/25 17:15 Ondansetron 2 Mg/Ml Inj IVP 04/19/25 17:11 4 mg ONCE ONE Administration Medical Decision Making MDM Narrative Medical decision making narrative: Patient is a 59-year-old male presenting for left flank and right scrotum pain. He states this feels just like his previous kidney stones. I do have some concern for testicular torsion considering he states he has had these exact same symptoms before seems most likely this is a kidney stone. Will do CT scan for better evaluation. Will also do a urinalysis to look for signs of UTI. Dilaudid given for pain and Zofran for nausea. Will also order BMP and CBC. Differential also includes diverticulitis, muscle strain. Less likely to be AAA rupture considering he is not hypotensive or tachycardic. CBC and BMP showed no acute concerning abnormality. No signs of UTI. CT scan returned showing moderate left-sided hydroureteronephrosis secondary to 5 mm obstructing left UPJ stone. And I dose of Dilaudid was given. Patient is feeling well at this time his blood pressure has improved. Likely his hypertension was related to pain. He has dealt with the urolithiasis in the past and has previously seen a urologist but states that was several years ago. At this time he is comfortable with discharge. Will be discharged oxycodone and Zofran via instymeds and Flomax sent to his pharmacy Lab Data Labs: Lab Results 04/19/25 Range/Units 16:48 WBC 8.90 (4.50-11.00) K/uL RBC 5.39 (4.30-5.90) m/uL Hgb 15.8 (13.5-17.5) gm/dL Hct 46.6 (37.0-53.0) % MCV 87 (80-100) fL MCH 29 (26-34) pg MCHC 34 (32-36) gm/dL RDW Coeff of Diamond 12.6 (11.5-15.5) % Plt Count 235 (140-440) K/uL Neut % (Auto) 89.5 H (42.0-72.0) % Lymph % (Auto) 5.4 L (20-44) % [place] % (Auto) 4.2 (0.0-11.0) % Eos % (Auto) 0.3 (0.0-7.0) % Baso % (Auto) 0.4 (0.0-3.0) % Neut # (Auto) 8.00 H (1.7-7.0) K/uL Lymph # (Auto) 0.50 L (0.90-2.90) K/uL [place] # (Auto) 0.40 (0.00-0.90) K/UL Eos # (Auto) 0.03 (0.00-0.50) K/uL Baso # (Auto) 0.04 (0.00-0.30) K/uL Abs Immat Gran (auto) 0.02 (0.00-0.30) K/uL Imm/Tot Granulo (auto) 0.2 % Sodium 133 L (135-149) mmol/L Potassium 5.2 H (3.6-5.1) mmol/L Chloride 102 (96-114) mmol/L Carbon Dioxide 23 (20-32) mmol/L Anion Gap 8 (7-15) mEq/L BUN 15 (7-30) mg/dL Creatinine 0.9 (0.5-1.5) mg/dL Estimated Creat Clear 93.50 Estimated GFR 100 ml/min Glucose 107 (60-115) mg/dL Calcium 9.0 (8.4-10.6) mg/dL Urine Color Yellow (Yellow) Urine Appearance Clear (Clear) Urine pH 6.0 (5.0-8.5) Ur Specific [place] 1.025 (1.000-1.030) Urine Protein 1+ A (Negative) Urine Glucose (UA) Negative (Negative) Urine Ketones 2+ A (Negative) Urine Blood 3+ A (Negative) Urine Nitrite Negative (Negative) Urine Bilirubin Negative (Negative) Urine Urobilinogen 0.2 (0.2-1.0) Ur Leukocyte Esterase Negative (Negative) Urine RBC 2-5 A (0-2) Urine WBC 2-5 (0-5) Ur Squamous Epith Cells Few (None-Few) Urine Bacteria None (None) Fine Granular Casts Few A (None) Imaging Data CT scan abdomen and pelvis: Attestation: I have reviewed the pertinent imaging results. Radiologist's impression: Moderate left-sided hydroureteronephrosis secondary to 5 millimeter obstructing left UPJ stone. Additional bilateral nonobstructing renal stones. Please note that all CT scans at this facility use dose modulation, iterative reconstruction, and/or weight-based dosing when appropriate to reduce radiation dose to as low as reasonably achievable. 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 Return to emergency department for new or worsening symptoms. With the size of this stone you may want to follow-up your primary care provider any eventually urology. Prescriptions: New tamsulosin 0.4 mg capsule 0.4 mg PO DAILY Qty: 10 2RF No Action escitalopram oxalate [Lexapro] 10 mg tablet 10 mg PO DAILY Qty: 90 3RF aspirin [Adult Aspirin Regimen] 81 mg tablet,delayed release (DR/EC) 81 mg PO DAILY rosuvastatin 20 mg tablet 20 mg PO HS tramadol 50 mg tablet 50 mg PO 3XD PRN (Reason: pain) cholecalciferol (vitamin D3) 125 mcg (5,000 unit) capsule 125 mcg PO DAILY Qty: 90 1RF Follow Up/Referrals: Lawson Key MD [Primary Care Provider, Family Practice] Stand Alone Forms: [employer] Info Instructions
[2025-04-19 17:13] LABS: Hematocrit 46.6 % (37.0-53.0); Hemoglobin* 15.8 gm/dL (13.5-17.5); Immature Granulocytes Abs Auto 0.02 K/uL (0.00-0.30); Immature Granulocytes Pct Auto 0.2 %; Mean Corpuscular HGB Conc 34 gm/dL (32-36); Mean Corpuscular Hemoglobin 29 pg (26-34); Mean Corpuscular Volume 87 fL (80-100); RDW Coefficient of Variation % 12.6 % (11.5-15.5); Red Blood Count 5.39 m/uL (4.30-5.90); White Blood Count* 8.90 K/uL (4.50-11.00)
[2025-04-19] MEDS: ONDANSETRON 2 MG/ML inj 4 MG IVP (17:15)
[2025-04-19 17:25] LABS: Lymphocytes Absolute Auto 0.50 K/uL (0.90-2.90); Slide Review Reflex No
[2025-04-19 17:34] LABS: Chloride* 102 mmol/L (96-114); Sodium* 133 mmol/L (135-149)
[2025-04-19 17:35] LABS: Potassium* 5.2 mmol/L (3.6-5.1)
[2025-04-19 17:38] LABS: Anion Gap 8 mEq/L (7-15); Blood Urea Nitrogen* 15 mg/dL (7-30); Calcium* 9.0 mg/dL (8.4-10.6); Carbon Dioxide* 23 mmol/L (20-32); Creatinine* 0.9 mg/dL (0.5-1.5); Est. Creatinine Clearance* 93.50; Estimated Glomerular Filt Rate 100 ml/min; Glucose* 107 mg/dL (60-115)
[2025-04-19 18:27] LABS: Appearance Urine Clear (Clear)
[2025-04-19 18:30] VITALS: BP 145/89; PULSE 75; RESP 18; TEMP 36.9; O2SAT 98
[2025-04-19 19:41] VITALS: BP 136/80; PULSE 74; RESP 18; TEMP 36.9
== END 2025-04-19 19:10 | disposition home or self-care (01) ==
PROVIDERS: Emergency Provider Student in an Organized Health Care Education/Training Program; PCP Family Medicine
DX: N20.9 Urinary calculus, unspecified (principal)
CPT/HCPCS: 36415; 74176; 80048; 81001; 85025; 96374; 96375; 99284; J1171; J2405; J7030

== ENCOUNTER 2025-09-14 11:11 | Outpatient (CLI) | payer BC, SELFPAY | END 2025-09-14 11:12 | disposition home or self-care (01) | PROVIDERS: PCP Family Medicine; Visit Provider Family Medicine | DX: Z01.818 Encounter for other preprocedural examination (principal); Q21.12 Patent foramen ovale | CPT/HCPCS: 80048 ==